=== PATIENT | female | born 1990 | race Caucasian/White ===

== ENCOUNTER 2023-05-12 06:08 | Emergency (ER) | payer OTHER, SELFPAY ==
[2023-05-12 06:33] VITALS: BP 120/81; PULSE 68; RESP 16; TEMP 36.7; O2SAT 99; BMI 28.0
--- NOTE | 2023-05-12 07:13 | ED_ITS ---
HPI - Ear Problem General Chief complaint: Ear Stated complaint: EARACHE LEG PAIN Time Seen by Provider: 05/12/23 07:13 Source: patient Mode of arrival: walk-in Limitations: no limitations History of Present Illness HPI Narrative: pt presents to the emergency department complaining of right leg, Knee and hip pain Ongoing for months. Intermittent. She states now is feeling swollen. She has not taking any medications for pain today but she intermittently takes [id number] analgesics and anti-inflammatories. Patient states she has developed left ear pain and is here to make sure she doesn't have an ear infe ction. She had upper respiratory symptoms in the last week. Denies any fever. Chills. She had a mild cough which is nonproductive. She denies any sore throat, chest pain, shortness of breath. She denies any stasis, or weakness. She denies any trauma. Related Data Previous Rx's Medication Instructions Recorded azithromycin 250 mg tablet See Rx Instructions PO .COMPLEX #6 05/12/23 (Zithromax) tabs ibuprofen 800 mg tablet 800 mg PO Q8H PRN pain #20 tabs 05/12/23 loratadine 5 mg-pseudoephedrine ER 1 tab PO DAILY PRN allergy 05/12/23 120 mg tablet,extended symptoms #14 tabs release,12hr (Claritin-D 12 Hour) Allergies Allergy/AdvReac Type Severity Reaction Status Date / Time amoxicillin Allergy Unknown Verified 05/12/23 06:38 codeine Allergy Unknown Verified 05/12/23 06:38 oxycodone [From Tylox] Allergy Unknown Verified 05/12/23 06:38 Review of Systems ROS Status of ROS 10 or more systems reviewed and unremarkable except as noted in history and below [facility] Social History Smoking status: Current every day smoker Exam Narrative Exam Narrative: Nurses notes and vital signs reviewed and patient is not hypoxic. General: Nontoxic, Well-appearing and in no apparent distress. Skin: Warm, dry, no pallor noted. No Rash Head: Normocephalic, atraumatic. Neck: Supple, non-tender. Eye: Pupils are equal, round and EOMI. No scleral icterus. Ears, Nose, Mouth, and Throat: TM clear, no posterior oropharynx erythema or nasal mucosal hypertrophy, uvula is mid-line Oral mucosa is moist, Left tympanic membrane with dull fluid and bollous myringitis noted. Cardiovascular: Regular Rate and Rhythm without murmur, gallop or rub. Respiratory: No accessory muscle use or respiratory distress. Lungs are clear to auscultation, no wheezing, rales or rhonchi Chest Wall: no tenderness Back: No midline thoracic or lumbar vertebral tenderness. No CVA tenderness Musculoskeletal: Mild tenderness to palpation to the left anterior knee. No erythema, or ecchymosis noted. There is no laxity noted. normal ROM, no calf or popliteal tenderness, no lower extremity edema/swelling GI: Abdomen is soft, non-distended. Normal bowel sounds. No masses appreciated. No tenderness to palpation. No rebound, guarding, or rigidity noted. Neurological: A&O x4. No cranial nerve dysfunction observed. No truncal ataxia. Moves all extremities. Sensation intact. Psychiatric: Cooperative and interactive. Normal mood and affect. Constitutional Vital Signs, click to edit/add: Last Vital Signs Temp 98.1 F 05/12/23 06:33 Pulse 68 05/12/23 06:33 Resp 16 05/12/23 06:33 BP 120/81 05/12/23 06:33 Pulse Ox 99 05/12/23 06:33 O2 Del Method Room Air 05/12/23 06:33 Course Vital Signs Vital signs: Vital Signs Temperature 98.1 F 05/12/23 06:33 Pulse Rate 68 05/12/23 06:33 Respiratory Rate 16 05/12/23 06:33 Blood Pressure 120/81 05/12/23 06:33 Pulse Oximetry 99 05/12/23 06:33 Oxygen Delivery Method Room Air 05/12/23 06:33 Temperature 98.1 F 05/12/23 06:33 Pulse Rate 68 05/12/23 06:33 Respiratory Rate 16 05/12/23 06:33 Blood Pressure 120/81 05/12/23 06:33 Pulse Oximetry 99 05/12/23 06:33 Oxygen Delivery Method Room Air 05/12/23 06:33 Medical Decision Making MDM Narrative Medical decision making narrative: Knee x-rays unremarkable. She was advised to take Claritin with decongestant. Given ibuprofen for the knee pain and Zithromax for bullous Myringitis. At this time the patient is without objective evidence of an acute process requiring hospitalization or inpatient management. The patient has remained hemodynamically stable. No additional indication for emergent studies at this time. I answered all questions. Discussed discharge instructions including standard anticipatory guidance and what should prompt a return to the emergency department, including if they get worse are not getting better or develops any new or concerning symptoms. I've given them specific time frame in which to follow-up, and who to follow-up with. The patient demonstrates understanding. Patient is nontoxic and stable for discharge with outpatient follow-up. This note was created with the assistance of a speech recognition program. Although the intention is to generate documents that actually reflects the content of the visit, no guarantees can be provided that every mistake has been identified and corrected by editing.. Discharge Plan Discharge Chief Complaint: Ear Clinical Impression: Right knee sprain, Otitis media Patient Disposition: Home, Self-Care Time of Disposition Decision: 07:26 Condition: Good Mode of Transportation: Private Vehicle Prescriptions / Home Meds: New azithromycin [Zithromax] 250 mg tablet See Rx Instructions .ROUTE .COMPLEX Qty: 6 0RF Rx Instructions: For 250 mg dose pack: take 500 mg today (day 1), then 250 mg for 4 days (days 2-5) Claritin-D 12 Hour 5-120 mg tablet extended release 12 hr 1 tab PO DAILY PRN (Reason: allergy symptoms) Qty: 14 0RF ibuprofen 800 mg tablet 800 mg PO Q8H PRN (Reason: pain) Qty: 20 0RF Instructions: Knee Sprain (ED), Ear Infection (ED) Stand Alone Forms: Portal Instructions Referrals: Sven Boyd MD [Primary Care Provider] - 1 week Sean Catalan MD [Physician] - 1 week Discharge Date/Time: 05/12/23 08:14
--- NOTE | 2023-05-12 07:37 | XR_ITS ---
The [address] [address] Patient Name: BAO LEE MRN: [id number] date: 1990 Sex: F Assigned Patient Location: ER Current Patient Location: ER Accession/Order Number: [id number] Exam Date: 05/12/2023 07:29 Report Date: 05/12/2023 07:53 At the request of: MAURICIO PEREZ Procedure: XR knee RT 4V PROCEDURE: XR knee RT 4V COMPARISON: None. HISTORY: pain FINDINGS: BONES:No fracture, acute abnormality, or significant arthropathy. SOFT TISSUES:Negative. No visible soft tissue swelling. EFFUSION:None visible. OTHER: Negative. XR/XR knee RT 4V IMPRESSION: No acute abnormality Electronically authenticated by: LEANN SWENSON Date: 05/12/2023 07:53
[2023-05-12] MEDS: IBUPROFEN 400 MG TABLET 800 MG PO (07:38)
[2023-05-12 08:13] VITALS: BP 121/70; PULSE 63; RESP 16; O2SAT 99
== END 2023-05-12 08:14 | disposition home or self-care (01) ==
PROVIDERS: Emergency Provider Emergency Medicine; PCP Family Medicine
DX: S83.91XA Sprain of unspecified site of right knee, initial encounter (principal); H66.92 Otitis media, unspecified, left ear; F17.210 Nicotine dependence, cigarettes, uncomplicated; X58.XXXA Exposure to other specified factors, initial encounter
CPT/HCPCS: 73564; 99283

== ENCOUNTER 2023-06-22 15:07 | Outpatient (OUT) | payer OTHER, SELFPAY ==
[2023-06-22 15:22] LABS: Basophils Absolute Auto 0.1 10^3/uL (0.0-0.1); Basophils Percent Auto 0.6 % (0.2-2.0); Eosinophils Absolute Auto 0.2 10^3/uL (0.0-0.7); Eosinophils Percent Auto 2.5 % (0.9-7.0); Hematocrit 38.8 % (36.0-48.0); Hemoglobin 12.9 g/dL (12.0-16.0); Immature Granulocytes Abs Auto 0.02 10^3/uL (0.00-0.03); Immature Granulocytes Pct Auto 0.2 % (0.0-0.5); Lymphocytes Absolute Auto 3.1 10^3/uL (1.2-3.8); Mean Corpuscular HGB Conc 33.2 g/dL (29.9-35.2); Mean Corpuscular Hemoglobin 31.8 pg (26.7-34.0); Mean Corpuscular Volume 95.6 fL (81.0-99.0); Mean Platelet Volume 10.5 fL (9.5-13.5); Monocytes Absolute Auto 0.6 10^3/uL (0.3-0.8); Monocytes Percent Auto 6.9 % (1.7-12.0); Neutrophils Absolute Auto 5.3 10^3/uL (1.4-6.5); Neutrophils Percent Auto 56.8 % (43.0-75.0); Platelet Count 202 10^3/uL (150-450); Red Blood Count 4.06 10^6/uL (4.20-5.40); Red Cell Distribution Width 12.8 % (11.0-15.0); White Blood Count 9.3 10^3/uL (4.0-11.0)
[2023-06-22 16:09] LABS: Free T4 0.74 ng/dL (0.76-1.46)
[2023-06-22 16:12] LABS: Alanine Aminotransferase 84 U/L (14-59); Albumin Level 3.5 g/dL (3.4-5.0); Alkaline Phosphatase 84 U/L (46-116); Anion Gap 10.8; Aspartate Amino Transferase 45 U/L (15-37); BUN Creatinine Ratio 14.7; Bilirubin Total 0.2 mg/dL (0.2-1.0); Calcium 8.8 mg/dL (8.5-10.1); Carbon Dioxide 26.5 mmol/L (21.0-32.0); Chloride 103 mmol/L (98-107); Estimated GFR (African America >60 (>=60); Estimated GFR (Non-African Ame >60 (>=60); Globulin 3.5 g/dL; Glucose 99 mg/dL (74-106); Potassium 4.3 mmol/L (3.5-5.1); Sodium 136 mmol/L (136-145); Thyroid Stimulating Hormone 1.137 uIU/mL (0.358-3.740)
== END 2023-06-22 15:08 | disposition home or self-care (01) ==
LOC: LAB 15:08
PROVIDERS: PCP Family Medicine; Visit Provider Family Medicine
DX: R60.9 Edema, unspecified (principal); I11.0 Hypertensive heart disease with heart failure; I50.30 Unspecified diastolic (congestive) heart failure
CPT/HCPCS: 36415; 80053; 83880; 84439; 84443; 85025

== ENCOUNTER 2023-06-27 10:40 | Outpatient (OUT) | payer OTHER, SELFPAY ==
--- NOTE | 2023-06-27 | XR_ITS ---
The [address] [address] Patient Name: BAO LEE MRN: [id number] date: 1990 Sex: F Assigned Patient Location: [facility] Current Patient Location: Accession/Order Number: [id number] Exam Date: 06/27/2023 11:20 Report Date: 06/28/2023 06:52 At the request of: PRASHANT BERMUDEZ Procedure: XR cervical spine 5V EXAMINATION: XR cervical spine 5V HISTORY: Neck pain COMPARISON: XR C-spine 10/15/2022 FINDINGS: BONES: Slight right convex curvature and mild reversal of normal lordotic curvature of cervical spine. No fracture, bone lesion, or significant listhesis. Mild uncovertebral joint spurring and degenerative facet arthropathy causing slight bone encroachment and narrowing of the C3-4, C4-5, C5-6 neural foramen. DISC SPACES: Moderate narrowing C5-6, C6-7. PARASPINOUS: Negative. No paraspinous abnormality is seen. OTHER: Negative. XR/XR cervical spine 5V IMPRESSION: 1. Grossly stable multilevel mild-moderate degenerative changes and atypical curvature. Consider MRI for further evaluation. Electronically authenticated by: SHANNA BALDERAS Date: 06/28/2023 06:52
== END 2023-06-27 10:41 | disposition home or self-care (01) ==
LOC: RAD 10:44
PROVIDERS: PCP Family Medicine; Visit Provider Family Medicine
DX: M54.2 Cervicalgia (principal)
CPT/HCPCS: 72050

== ENCOUNTER 2023-07-01 14:29 | Outpatient (RCR) | payer OTHER, SELFPAY | END 2023-07-02 15:12 | disposition home or self-care (01) | LOC: PT 14:29 | PROVIDERS: PCP Family Medicine | DX: M54.50 Low back pain, unspecified (principal) | CPT/HCPCS: 97163 ==

== ENCOUNTER 2023-07-04 10:24 | Outpatient (OUT) | payer OTHER, SELFPAY ==
--- NOTE | 2023-07-04 10:49 | VEIN_ITS ---
Patient: BAO LARA Exam Date: 07/04/2023 : 1990 Gender:F Ordering : DR LEANN SWENSON M.D. Admission #: [id number] Family : Order #: [id number] CLICK HERE TO VIEW EXAM RADIOLOGY REPORT PROCEDURE: VC EXT VENOUS REFLUX ZHANE LMTD COMPARISON: None. INDICATIONS: I83.813 Painful varicose veins of bilat lower extremities TECHNIQUE: Duplex imaging of the lower extremity to assess the deep and superficial venous system for the presence of deep or superficial venous incompetence and to document the location and severity of disease. The study includes evaluation of the great saphenous vein (GSV), anterior accessory saphenous vein (AASV) and small saphenous vein (SSV). Patient scanned in reverse Trendelenburg and standing. FINDINGS: RIGHT LOWER EXTREMITY: Saphenofemoral Junction Reflux: Yes 7.6mm 0.5 sec GSV: Diam (mm) Reflux/ Time (sec) Proximal Thigh 3.0 No Mid Thigh 1.3 No Distal Thigh 1.7 No Prox Calf 1.1 No Mid Calf 1.4 No Saphenopopliteal Junction Reflux: 1.4mm No SSV: Proximal Calf 1.1 No Mid Calf 1.4 No AASV: Not present Proximal Thigh Mid Thigh Distal Thigh Thrombi: No acute or chronic thrombus visualized Compressibility: Normal Flow: Pulsatile flow visualized throughout deep veins Preforator: Dist/med calf 1.7mm with0s reflux. Tech Note: No incompetent varicose veins visualized. LEFT LOWER EXTREMITY: Saphenofemoral Junction Reflux: Yes 4.1 mm sec GSV: Diam (mm) Reflux/Time (sec) Proximal Thigh 2.9 No Mid Thigh 2.7 No Distal Thigh 1.8 No Prox Calf 1.5 No Mid Calf 1.1 No Saphenopopliteal Junction Relux: 2.1 mm No SSV: Proximal Calf 1.2 No Mid Calf 0.9 No AASV: Not present Proximal Thigh Mid Thigh Distal Thigh Thrombi: No acute or chronic thrombus visualized Compressibility: Normal Flow: Normal Remote Pilot Operator: No perforators visualized Tech Note: No incompetent varicose veins visualized. CONCLUSION: 1. No abnormally dilated or incompetent saphenous veins or significant branch saphenous varicosities within the right or left lower extremity. 2. Clinical follow-up recommended. Dictated by: Sean Menchaca M.D. on 07/04/2023 at 11:51 Approved by: Sean Menchaca M.D. on 07/04/2023 at 11:54
== END 2023-07-04 10:25 | disposition home or self-care (01) ==
PROVIDERS: PCP Family Medicine; Visit Provider Radiology Diagnostic Radiology
DX: R60.9 Edema, unspecified (principal); I83.813 Varicose veins of bilateral lower extremities with pain
CPT/HCPCS: 93970; G0463

== ENCOUNTER 2023-07-06 06:58 | Emergency (ER) | payer OTHER, SELFPAY ==
[2023-07-06 07:02] VITALS: BP 150/85; PULSE 64; RESP 18; TEMP 36.4; O2SAT 100; BMI 28.3
--- NOTE | 2023-07-06 07:17 | CT_ITS ---
The [address] [address] Patient Name: BAO LARA MRN: [id number] date: 1990 Sex: F Assigned Patient Location: ER Current Patient Location: ER Accession/Order Number: [id number] Exam Date: 07/06/2023 07:51 Report Date: 07/06/2023 08:27 At the request of: KATE IRAHETA Procedure: CT cervical spine wo con CT scan cervical spine 07/06/2023. HISTORY: Status post fall. Neck pain. COMPARISON: Radiographs cervical spine 06/27/2023. TECHNIQUE: Multiple contiguous axial CT images of the cervical spine were obtained without contrast. Sagittal and coronal reformatted images were made. Dose reduction techniques were achieved by using automated exposure control and/or adjustment of mA and/or kV according to patient size and/or use of iterative reconstruction technique. FINDINGS: There is a mild rotatory dextroconvex scoliosis of the cervical spine again seen. There is also a similar appearance of mild reversal of the normal cervical lordosis centered at the C4-C5 level. There is moderate discogenic disease again seen at the C5-C6 level and mild discogenic disease at the C6-C7 level. No compression fracture or subluxation is seen. There is no prevertebral soft tissue swelling. The odontoid appears intact. C2-C3 level: No significant disc protrusion, spinal canal stenosis, or foraminal narrowing is seen. C3-C4 level: No significant disc protrusion, spinal canal stenosis, or foraminal narrowing is seen. C4-C5 level: There appears to be a small central disc protrusion and this appears to cause probable mild spinal canal stenosis. No significant foraminal narrowing is seen. C5-C6 level: There is a broad-based central disc-osteophyte complex which appears to cause probable severe spinal canal stenosis with probable flattening of the AP dimension of the spinal cord to approximately 5 mm. Uncovertebral arthropathy appears to cause mild bilateral foraminal narrowing. C6-C7 level: There is a posterior disc-osteophyte complex which is more prominent in the central/right paracentral region. This appears to cause probable severe spinal canal stenosis with probable flattening of the right side of the spinal cord. Uncovertebral arthropathy appears to cause mild right and minimal left foraminal narrowing. C7-T1 level: No significant disc protrusion, spinal canal stenosis, or foraminal narrowing is seen. CT/CT cervical spine wo con IMPRESSION: 1. There is discogenic disease with posterior disc-osteophyte complexes at the C5-C6 and C6-C7 levels which appear to cause severe spinal canal stenosis with probable flattening of the spinal cord. There also appears to be a small central disc protrusion at the C4-C5 level causing mild spinal canal stenosis. An MRI of the cervical spine is recommended for a more definitive evaluation of these findings. 2. No fracture or subluxation of the cervical spine is seen. 3. There is mild bilateral foraminal narrowing at the C5-C6 level and there is mild right and minimal left foraminal narrowing at the C6-C7 level secondary to uncovertebral arthropathy. 4. Mild rotatory dextroconvex scoliosis of the cervical spine. 5. Mild reversal of the normal cervical lordosis is again seen. Electronically authenticated by: PRASHANT LIZ Date: 07/06/2023 08:27
--- NOTE | 2023-07-06 07:17 | CT_ITS ---
The [address] [address] Patient Name: BAO LARA MRN: [id number] date: 1990 Sex: F Assigned Patient Location: ER Current Patient Location: ER Accession/Order Number: [id number] Exam Date: 07/06/2023 07:51 Report Date: 07/06/2023 08:35 At the request of: KATE IRAHETA Procedure: CT lumbar spine wo con EXAM: CT lumbar spine WO contrast. HISTORY: Trauma after a fall. Numbness in the arms and legs. The legs gave out and the patient fell backwards. COMPARISON: None. TECHNIQUE: 3 mm thick axial images were obtained through the lumbar spine without contrast. 2-D reformat images were created in the coronal and sagittal planes. FINDINGS: There is no acute fracture or spondylolisthesis. The lumbar vertebral body heights are maintained. No transverse process or spinous process fracture is evident. The disc spaces are relatively maintained. No bony destruction or aggressive osseous lesion is identified in the lumbar spine. No acute abnormality is identified involving visualized intra-abdominal or intrapelvic structures. The visualized aorta is normal in diameter. The upper sacrum is intact. There are no pars defects. L5-S1: There is a mild disc bulge without central or foraminal stenosis. L4-L5: There is a 3 mm broad-based disc protrusion which results in effacement of the thecal sac without central stenosis. There is suspected mild bilateral foraminal narrowing. L3-L4: There is mild disc bulge and a small left subarticular disc protrusion without central or foraminal stenosis. L2-L3: No focal disc herniation is evident. There is no central or foraminal stenosis. L1-L2: There is a mild disc bulge. There is no central or foraminal stenosis. CT/CT lumbar spine wo con IMPRESSION: 1. No acute fracture in the lumbar spine. 2. There is a broad-based disc protrusion at L4-L5 with suspected mild foraminal narrowing. There is no central stenosis in the lumbar spine. Electronically authenticated by: RICARDO CRAWFORD Date: 07/06/2023 08:35
[2023-07-06] MEDS: KETOROLAC TROMETHAMINE 30 MG/ML VIAL IM (07:32)
[2023-07-06] MEDS: METHYLPREDNISOLONE SOD SUCC PF 40 MG/ML VIAL IM (07:32)
[2023-07-06] MEDS: ORPHENADRINE CITRATE 100 MG TABLET.ER PO (07:32)
[2023-07-06] MEDS: FAMOTIDINE 20 MG TABLET 40 MG PO (07:32)
--- NOTE | 2023-07-06 07:37 | ED.BACK1 ---
HPI - Back Pain/Injury General Chief Complaint: Back Pain/Injury Stated Complaint: FALL Time Seen by Provider: 07/06/23 07:10 Source: patient Mode of arrival: walk-in Limitations: no limitations History of Present Illness HPI Narrative: The patient have already chronic back issues and she also had baseline numbness and tingling in both legs is coming to us after her leg gave out while she was walking outside and she fell backwards complaining of neck pain mostly in the right side as well as lower back pain, no new numbness or tingling or any weakness in the lower extremities the patient also had no incontinence of urine or stool and she does not have any numbness in the buttock area Related Data Previous Rx's Medication Instructions Recorded azithromycin 250 mg tablet See Rx Instructions PO .COMPLEX #6 05/12/23 (Zithromax) tabs ibuprofen 800 mg tablet 800 mg PO Q8H PRN pain #20 tabs 05/12/23 loratadine 5 mg-pseudoephedrine ER 1 tab PO DAILY PRN allergy 05/12/23 120 mg tablet,extended symptoms #14 tabs release,12hr (Claritin-D 12 Hour) Allergies Allergy/AdvReac Type Severity Reaction Status Date / Time atropine Allergy Severe Confusion Verified 07/06/23 11:30 fentanyl Allergy Severe CONFUSION Verified 07/06/23 09:00 midazolam [From Versed] Allergy Severe Confusion Verified 07/06/23 11:30 propofol Allergy Severe Confusion Verified 07/06/23 11:30 amoxicillin Allergy Unknown Verified 07/06/23 09:00 codeine Allergy Unknown Verified 07/06/23 09:00 oxycodone [From Tylox] Allergy Unknown Verified 07/06/23 09:00 Review of Systems ROS Status of ROS 10 or more systems reviewed and unremarkable except as noted in history and below [facility] Social History Smoking status: Current every day smoker Exam Narrative Exam Narrative: Nurses notes and vital signs reviewed and patient is not hypoxic. General: Well-appearing and in no apparent distress. Skin: Warm, dry, no pallor noted. No rash. Head: Normocephalic, atraumatic. Neck: Supple,no intervertebral line tenderness Eye: Pupils are equal, round and EOMI. No scleral icterus. Ears, Nose, Mouth, and Throat: TM are clear, no nasal mucosal hypertrophy. Oral mucosa is moist, no posterior oropharynx erythema, uvula is mid-line Cardiovascular: Regular Rate and Rhythm without murmur, gallop or rub. Respiratory: No accessory muscle use or respiratory distress. Lungs are clear to auscultation, no wheezing, rales or rhonchi Chest Wall: no tenderness Back: No midline thoracic or lumbar vertebral tenderness but the pt complain of tenderness of the intervertebral line , paraspinal muscle tenderness ,no ecchymosis No CVA tenderness Musculoskeletal: normal ROM, no calf or popliteal tenderness, no lower extremity edema/swelling GI: Abdomen is soft, non-distended. Normal bowel sounds. No masses appreciated. No tenderness to palpation. No rebound, guarding, or rigidity noted. Neurological: A&O x4. Have some mild weakness lifting the right leg against gravity but she mentioned that this has been going on for a while she also mentioned that she have this numbness and tingling going down her both legs the patient also have decreased sensation in the medial aspect of both arms mostly at the forearm level Psychiatric: Cooperative and interactive. Normal mood and affect. Constitutional Vital Signs, click to edit/add: Last Vital Signs Temp 97.6 F 07/06/23 07:02 Pulse 64 07/06/23 07:02 Resp 18 07/06/23 07:02 BP 150/85 H 07/06/23 07:02 Pulse Ox 100 07/06/23 07:02 O2 Del Method Room Air 07/06/23 07:02 Course Vital Signs Vital signs: Vital Signs Temperature 97.6 F 07/06/23 07:02 Pulse Rate 64 07/06/23 07:02 Respiratory Rate 18 07/06/23 07:02 Blood Pressure 150/85 H 07/06/23 07:02 Pulse Oximetry 100 07/06/23 07:02 Oxygen Delivery Method Room Air 07/06/23 07:02 Temperature 97.6 F 07/06/23 07:02 Pulse Rate 64 07/06/23 07:02 Respiratory Rate 18 07/06/23 07:02 Blood Pressure 150/85 H 07/06/23 07:02 Pulse Oximetry 100 07/06/23 07:02 Oxygen Delivery Method Room Air 07/06/23 07:02 MDM - Back Pain/Injury MDM Narrative Medical decision making narrative: The patient CBC and chemistry showed no acute pathology CAT scan initially of the lumbar spine showed no acute pathology but the CAT scan of the cervical spine shows a severe stenosis at C5-C6 and C6-C7 with possibility of flattening of the spinal cord The patient had a neck collar in place she had an MRI done as well that confirmed the results above with edema of the area this is right now could be chronic with on top mild acute exacerbation I did call [facility] awaiting to speak with the neurosurgery spoke with [facility]recommended trasfer to [facility] or [facility] I spoke with Dr. Nava and neurosurgery service in [facility] and he agreed that the patient needed transferred she will be transferred by the ambulance to the ER and in the ED accepted the patient The patient is stable no acute significant neurological symptoms the patient's symptoms has been progressively getting worse over the last few months since March and right now since that is the clinical presentation the patient is stable enough to go by the EMS The patient requested a nicotine patch and she was provided with 1 she smoked more than 1 pack of cigarettes a day Lab Data Labs: Lab Results 07/06/23 07/06/23 Range/Units 07:36 08:48 WBC 12.3 H (4.0-11.0) 10^3/uL RBC 4.27 (4.20-5.40) 10^6/uL Hgb 13.3 (12.0-16.0) g/dL Hct 40.5 (36.0-48.0) % MCV 94.8 (81.0-99.0) fL MCH 31.1 (26.7-34.0) pg MCHC 32.8 (29.9-35.2) g/dL RDW 12.9 (11.0-15.0) % Plt Count 274 (150-450) 10^3/uL MPV 11.2 (9.5-13.5) fL Neut % (Auto) 68.0 (43.0-75.0) % Lymph % (Auto) 22.8 (20.5-60.0) % [place] % (Auto) 6.7 (1.7-12.0) % Eos % (Auto) 1.5 (0.9-7.0) % Baso % (Auto) 0.6 (0.2-2.0) % Neut # (Auto) 8.4 H (1.4-6.5) 10^3/uL Lymph # (Auto) 2.8 (1.2-3.8) 10^3/uL [place] # (Auto) 0.8 (0.3-0.8) 10^3/uL Eos # (Auto) 0.2 (0.0-0.7) 10^3/uL Baso # (Auto) 0.1 (0.0-0.1) 10^3/uL Abs Immat Gran (auto) 0.05 H (0.00-0.03) 10^3/uL Imm/Tot Granulo (auto) 0.4 (0.0-0.5) % Sodium 139 (136-145) mmol/L Potassium 3.7 (3.5-5.1) mmol/L Chloride 106 (98-107) mmol/L Carbon Dioxide 26.0 (21.0-32.0) mmol/L Anion Gap 10.7 BUN 8.0 (7.0-18.0) mg/dL Creatinine 0.68 (0.55-1.02) mg/dL Est GFR ( Amer) >60 (>=60) Est GFR (Non-Af Amer) >60 (>=60) BUN/Creatinine Ratio 11.8 Glucose 80 (74-106) mg/dL Calcium 8.7 (8.5-10.1) mg/dL Total Bilirubin 0.4 (0.2-1.0) mg/dL AST 34 (15-37) U/L ALT 75 H (14-59) U/L Alkaline Phosphatase 78 (46-116) U/L Total Protein 7.1 (6.4-8.2) g/dL Albumin 3.8 (3.4-5.0) g/dL Globulin 3.3 g/dL Albumin/Globulin Ratio 1.2 Urine HCG, Qual Negative (NEGATIVE) Urine Opiates Screen Negative (NEGATIVE) Ur Buprenorphine Scrn Negative (NEGATIVE) Ur Oxycodone Screen Negative (NEGATIVE) Urine Methadone Screen Negative (NEGATIVE) Ur Barbiturates Screen Negative (NEGATIVE) U Tricyclic Antidepress Negative (NEGATIVE) Ur Phencyclidine Scrn Negative (NEGATIVE) Ur Amphetamines Screen Negative (NEGATIVE) U Methamphetamines Scrn Negative (NEGATIVE) U Benzodiazepines Scrn Negative (NEGATIVE) Urine Cocaine Screen Negative (NEGATIVE) U Cannabinoids Screen Negative (NEGATIVE) Discharge Plan Discharge Chief Complaint: Back Pain/Injury Clinical Impression: Cervical spinal cord compression Patient Disposition: [facility] Time of Disposition Decision: 11:21 Discharge Location: [facility] Discharge location: emergency department Condition: Good Mode of Transportation: EMS
[2023-07-06 07:59] LABS: Amphetamine Screen Urine NEGATIVE (NEGATIVE); Barbiturates Screen Urine NEGATIVE (NEGATIVE); Benzodiazepines Screen Urine NEGATIVE (NEGATIVE); Buprenorphine Screen Urine NEGATIVE (NEGATIVE); Cannabinoid Screen Urine NEGATIVE (NEGATIVE); Cocaine Screen Urine NEGATIVE (NEGATIVE); Methadone Screen Urine NEGATIVE (NEGATIVE); Methamphetamines Screen Urine NEGATIVE (NEGATIVE); Opiate Screen Urine NEGATIVE (NEGATIVE); Oxycodone Screen Urine NEGATIVE (NEGATIVE); Phencyclidine Screen Urine NEGATIVE (NEGATIVE); Tricyclic Antidepressant Urine NEGATIVE (NEGATIVE)
--- NOTE | 2023-07-06 08:44 | MR_ITS ---
The [address] [address] Patient Name: BAO LARA MRN: [id number] date: 1990 Sex: F Assigned Patient Location: ER Current Patient Location: ER Accession/Order Number: [id number] Exam Date: 07/06/2023 09:05 Report Date: 07/06/2023 10:06 At the request of: KATE IRAHETA Procedure: MR cervical spine wo con HISTORY: Status post fall. Neck pain. Numbness in the arms and legs. The patient was found to have spinal canal stenosis with probable flattening of the spinal cord at the C5-C6 and C6-C7 level on a CT scan of the cervical spine obtained earlier today. Please evaluate. MR cervical spine wo con: 07/06/2023 9:05 AM EDT COMPARISON: CT scan cervical spine 07/06/2023. TECHNIQUE: Sagittal T1, T2, STIR, axial T2, and T2 gradient echo images of the cervical spine were obtained. FINDINGS: Multiple images are degraded by breathing motion artifact. There is a mild rotatory dextroconvex scoliosis of the cervical spine again seen. There is also mild reversal of the normal cervical lordosis again seen centered at the C4-C5 level. There is mild discogenic disease again seen at the C6-C7 level and moderate discogenic disease at the C5-C6 level. There is no compression fracture or subluxation. No prevertebral soft tissue swelling is seen. The bone marrow signal intensity appears age appropriate. The craniovertebral junction appears grossly within normal limits. There appears to be mild diffuse narrowing of the AP dimension of the cervical spinal canal at the C4-C5 through C6-C7 level secondary to short pedicles. C2-C3 level: No significant disc protrusion, spinal canal stenosis, or foraminal narrowing is seen. C3-C4 level: No significant disc protrusion, spinal canal stenosis, or foraminal narrowing is seen. C4-C5 level: No significant disc protrusion is seen, but there is mild congenital/developmental spinal canal stenosis secondary to short pedicles. Uncovertebral arthropathy on the left causes mild left foraminal narrowing. There is no right foraminal narrowing. C5-C6 level: There is a broad-based central disc-osteophyte complex again seen. This causes severe spinal canal stenosis with compression of the AP dimension of the spinal cord to approximately 4.5 mm in AP dimension. Uncovertebral arthropathy appears to cause moderate right and mild left foraminal narrowing. C6-C7 level: There is a broad-based posterior disc-osteophyte complex. Superimposed on this disc-osteophyte complex is a large broad-based central/bilateral paracentral disc extrusion dissecting cranially to the superior aspect of C6. These findings cause severe spinal canal stenosis with severe compression of the AP dimension of the spinal cord to 2.5 mm. Uncovertebral arthropathy appears to cause severe right and mild left foraminal narrowing. C7-T1 level: No significant disc protrusion, spinal canal stenosis, or foraminal narrowing is seen. There are linear foci of increased T2 signal intensity involving the right and left sides of the spinal cord from the C5-C6 level through the C6-C7 level. This appears more prominent on the left than the right. The signal intensity of the remainder of the cervical spinal cord appears grossly within normal limits. MR/MR cervical spine wo con IMPRESSION: 1. There is severe spinal canal stenosis with compression of the spinal cord at the C5-C6 through the C6-C7 levels secondary to a combination of factors described above. There is also mild congenital/developmental spinal canal stenosis at the C4-C5 level secondary to short pedicles. There is abnormal linear increased T2 signal intensity within the right and left side of the spinal cord at the C5-C6 through the C6-C7 level, worse on the left than the right. This may be secondary to spinal cord edema or myelomalacia. 2. There is foraminal narrowing at the C4-C5 through C6-C7 level secondary to uncovertebral arthropathy. 3. Discogenic disease at the C5-C6 and C6-C7 levels. 4. Mild rotatory dextroconvex scoliosis of the cervical spine. I discussed the critical findings of this case with the referring clinician, Kate Iraheta, at 10:03 AM on 07/06/2023 when the study was presented for interpretation. Electronically authenticated by: PRASHANT LIZ Date: 07/06/2023 10:06
[2023-07-06 08:48] LABS: HCG Qualitative Urine* NEGATIVE (NEGATIVE)
[2023-07-06] MEDS: DEXAMETHASONE SOD PHOS 10 MG/ML VIAL 6 MG IV (08:54)
[2023-07-06 09:48] LABS: Basophils Absolute Auto 0.1 10^3/uL (0.0-0.1); Basophils Percent Auto 0.6 % (0.2-2.0); Eosinophils Absolute Auto 0.2 10^3/uL (0.0-0.7); Eosinophils Percent Auto 1.5 % (0.9-7.0); Hematocrit 40.5 % (36.0-48.0); Hemoglobin 13.3 g/dL (12.0-16.0); Immature Granulocytes Abs Auto 0.05 10^3/uL (0.00-0.03); Immature Granulocytes Pct Auto 0.4 % (0.0-0.5); Lymphocytes Absolute Auto 2.8 10^3/uL (1.2-3.8); Lymphocytes Percent Auto 22.8 % (20.5-60.0); Mean Corpuscular HGB Conc 32.8 g/dL (29.9-35.2); Mean Corpuscular Hemoglobin 31.1 pg (26.7-34.0); Mean Corpuscular Volume 94.8 fL (81.0-99.0); Mean Platelet Volume 11.2 fL (9.5-13.5); Monocytes Absolute Auto 0.8 10^3/uL (0.3-0.8); Monocytes Percent Auto 6.7 % (1.7-12.0); Neutrophils Absolute Auto 8.4 10^3/uL (1.4-6.5); Platelet Count 274 10^3/uL (150-450); Red Blood Count 4.27 10^6/uL (4.20-5.40); Red Cell Distribution Width 12.9 % (11.0-15.0); White Blood Count 12.3 10^3/uL (4.0-11.0)
[2023-07-06 10:08] LABS: Alanine Aminotransferase 75 U/L (14-59); Albumin Globulin Ratio 1.2; Albumin Level 3.8 g/dL (3.4-5.0); Alkaline Phosphatase 78 U/L (46-116); Anion Gap 10.7; Aspartate Amino Transferase 34 U/L (15-37); BUN Creatinine Ratio 11.8; Bilirubin Total 0.4 mg/dL (0.2-1.0); Calcium 8.7 mg/dL (8.5-10.1); Chloride 106 mmol/L (98-107); Estimated GFR (African America >60 (>=60); Estimated GFR (Non-African Ame >60 (>=60); Globulin 3.3 g/dL; Glucose 80 mg/dL (74-106); Potassium 3.7 mmol/L (3.5-5.1); Sodium 139 mmol/L (136-145); Total Protein 7.1 g/dL (6.4-8.2)
[2023-07-06] MEDS: NICOTINE 21 MG PATCH TD (11:56)
[2023-07-06 12:31] VITALS: BP 99/85; PULSE 60; RESP 14; O2SAT 98
== END 2023-07-06 12:47 | disposition short-term general hospital (02) ==
PROVIDERS: Emergency Provider Emergency Medicine; PCP Family Medicine
DX: G95.20 Unspecified cord compression (principal); F17.210 Nicotine dependence, cigarettes, uncomplicated; W19.XXXA Unspecified fall, initial encounter
CPT/HCPCS: 36415; 72125; 72131; 72141; 80053; 80307; 84703; 85025; 96372; 96374; 99285; J1100; J2920

== ENCOUNTER 2023-08-09 09:04 | Emergency (ER) | payer OTHER, SELFPAY ==
[2023-08-09 09:09] VITALS: BP 139/77; PULSE 83; RESP 19; TEMP 36.8; O2SAT 100; BMI 28.3
--- NOTE | 2023-08-09 09:25 | ED.BACK1 ---
HPI - Back Pain/Injury General Chief Complaint: Back Pain/Injury Stated Complaint: BACK PAIN Time Seen by Provider: 08/09/23 09:19 Source: patient Mode of arrival: walk-in Limitations: no limitations History of Present Illness HPI Narrative: 33-year-old female presents for pain. She's having pain in her right thoracic back area for many months. A month ago she had cervical surgery in [place]. She was having the pain much before that. No trauma fever or cough or injury. Related Data Previous Rx's Medication Instructions Recorded methocarbamol 750 mg tablet 750 mg PO Q8H PRN pain #20 tabs 08/09/23 Allergies Allergy/AdvReac Type Severity Reaction Status Date / Time atropine Allergy Severe Confusion Verified 08/09/23 09:09 fentanyl Allergy Severe CONFUSION Verified 08/09/23 09:09 midazolam [From Versed] Allergy Severe Confusion Verified 08/09/23 09:09 propofol Allergy Severe Confusion Verified 08/09/23 09:09 amoxicillin Allergy Unknown Verified 08/09/23 09:09 codeine Allergy Unknown Verified 08/09/23 09:09 Review of Systems ROS Narrative A ten point review of systems is negative except as noted above. [facility] Social History Smoking status: Current every day smoker Exam Narrative Exam Narrative: Nurses note and vital signs reviewed and patient is not hypoxic. General: The patient appears no distress. She is sitting on the edge of the cart with her walker nearby. Skin: Warm, dry, no pallor noted. There is no rash noted. Head: Normocephalic, atraumatic Eye: Normal conjunctiva, no drainage Ears, Nose, Mouth, and Throat: oral mucosa is moist. Nares patent. healing surgical wound present on the right anterior neck. Cardiovascular: Regular Rate and Rhythm Respiratory: Patient is in no distress, no accessory muscle use, lungs are clear to auscultation, no wheezing, rales or rhonchi Back: she has palpable tenderness in the right thoracic area which reproduces her symptom completely. There is no bruise or rash or erythema. GI: soft and nontender Musculoskeletal: The patient has no evidence of calf tenderness, no pitting edema, symmetrical pulses noted bilaterally Neurological: A&O, normal speech Psychiatric: Cooperative Constitutional Vital Signs, click to edit/add: Last Vital Signs Temp 98.3 F 08/09/23 09:09 Pulse 83 08/09/23 09:09 Resp 19 08/09/23 09:09 BP 139/77 08/09/23 09:09 Pulse Ox 100 08/09/23 09:09 O2 Del Method Room Air 08/09/23 09:09 Course Vital Signs Vital signs: Vital Signs Temperature 98.3 F 08/09/23 09:09 Pulse Rate 83 08/09/23 09:09 Respiratory Rate 19 08/09/23 09:09 Blood Pressure 139/77 08/09/23 09:09 Pulse Oximetry 100 08/09/23 09:09 Oxygen Delivery Method Room Air 08/09/23 09:09 Temperature 98.3 F 08/09/23 09:09 Pulse Rate 83 08/09/23 09:09 Respiratory Rate 19 08/09/23 09:09 Blood Pressure 139/77 08/09/23 09:09 Pulse Oximetry 100 08/09/23 09:09 Oxygen Delivery Method Room Air 08/09/23 09:09 MDM - Back Pain/Injury MDM Narrative Medical decision making narrative: the patient has had this pain for months. I've no clinical suspicion of pulmonary embolism. Radiographs are not indicated. She was given IM Toradol and Norflex here and we will switch her from Flexeril to Robaxin. Treatment diagnosis and follow-up were discussed with the patient. Differential Diagnosis Differential diagnosis: Likely other (muscle strain, chronic back pain) Discharge Plan Discharge Chief Complaint: Back Pain/Injury Clinical Impression: Chronic back pain Patient Disposition: Home, Self-Care Time of Disposition Decision: 10:03 Condition: Good Mode of Transportation: Private Vehicle Prescriptions / Home Meds: New methocarbamol 750 mg tablet 750 mg PO Q8H PRN (Reason: pain) Qty: 20 0RF Instructions: Chronic Back Pain (DC) Additional Instructions: Discontinue cyclobenzaprine while on Robaxin Stand Alone Forms: Portal Instructions Referrals: Sven Boyd MD [Primary Care Provider] - 1 week
[2023-08-09] MEDS: KETOROLAC TROMETHAMINE 60 MG/2 ML VIAL IM (09:45)
[2023-08-09] MEDS: ORPHENADRINE 60 MG/ 2 ML VIAL IM (09:45)
== END 2023-08-09 10:09 | disposition home or self-care (01) ==
PROVIDERS: Emergency Provider Emergency Medicine; PCP Family Medicine
DX: M54.6 Pain in thoracic spine (principal); G89.29 Other chronic pain; F17.200 Nicotine dependence, unspecified, uncomplicated
CPT/HCPCS: 96372; 99284

== ENCOUNTER 2023-09-07 12:44 | Outpatient (OUT) | payer OTHER, SELFPAY ==
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
--- NOTE | 2023-09-07 13:02 | US_ITS ---
[place] [id number] Patient Name: BAO LARA MRN: [id number] date: 1990 Sex: F Assigned Patient Location: LAB Current Patient Location: LAB Accession/Order Number: [id number] Exam Date: 09/07/2023 13:10 Report Date: 09/07/2023 15:01 At the request of: PRASHANT BERMUDEZ Procedure: US venous doppler LE RT EXAMINATION: US venous doppler LE RT HISTORY: Edema R60.9, Bruising T14.8 COMPARISON: No relevant comparison available. TECHNIQUE: Grayscale, color and Doppler FINDINGS: Region: Right leg Thrombus: None Flow: Normal Augmentation: Normal Compressibility: Normal US/US venous doppler LE RT IMPRESSION: No deep or superficial vein thrombus identified in the right leg *Exam performed in accordance with [facility] practice guidelines- Peripheral venous ultrasound, November 29, 2009. Electronically authenticated by: LEANN SWENSON Date: 09/07/2023 15:01
[2023-09-07 14:01] LABS: INR 1.04; Partial Thromboplastin Time 30.5 sec (22.3-36.2)
[2023-09-07 14:04] LABS: Basophils Absolute Auto 0.1 10^3/uL (0.0-0.1); Basophils Percent Auto 0.8 % (0.2-2.0); Eosinophils Absolute Auto 0.2 10^3/uL (0.0-0.7); Eosinophils Percent Auto 1.9 % (0.9-7.0); Hematocrit 43.2 % (36.0-48.0); Hemoglobin 14.1 g/dL (12.0-16.0); Immature Granulocytes Abs Auto 0.06 10^3/uL (0.00-0.03); Immature Granulocytes Pct Auto 0.5 % (0.0-0.5); Lymphocytes Absolute Auto 2.7 10^3/uL (1.2-3.8); Lymphocytes Percent Auto 23.5 % (20.5-60.0); Mean Corpuscular HGB Conc 32.6 g/dL (29.9-35.2); Mean Corpuscular Hemoglobin 31.8 pg (26.7-34.0); Mean Corpuscular Volume 97.5 fL (81.0-99.0); Monocytes Absolute Auto 0.9 10^3/uL (0.3-0.8); Monocytes Percent Auto 7.6 % (1.7-12.0); Neutrophils Absolute Auto 7.6 10^3/uL (1.4-6.5); Neutrophils Percent Auto 65.7 % (43.0-75.0); Platelet Count 261 10^3/uL (150-450); Red Blood Count 4.43 10^6/uL (4.20-5.40); Red Cell Distribution Width 13.1 % (11.0-15.0); White Blood Count 11.5 10^3/uL (4.0-11.0)
[2023-09-07 14:27] LABS: Alanine Aminotransferase 59 U/L (14-59); Albumin Globulin Ratio 1.1; Albumin Level 3.8 g/dL (3.4-5.0); Alkaline Phosphatase 85 U/L (46-116); Anion Gap 12.7; Aspartate Amino Transferase 20 U/L (15-37); BUN Creatinine Ratio 6.3; Bilirubin Total 0.4 mg/dL (0.2-1.0); Calcium 9.1 mg/dL (8.5-10.1); Carbon Dioxide 27.6 mmol/L (21.0-32.0); Chloride 101 mmol/L (98-107); Estimated GFR (African America >60 (>=60); Estimated GFR (Non-African Ame >60 (>=60); Globulin 3.5 g/dL; Glucose 102 mg/dL (74-106); Potassium 3.3 mmol/L (3.5-5.1); Sodium 138 mmol/L (136-145); Total Protein 7.3 g/dL (6.4-8.2)
== END 2023-09-07 12:45 | disposition home or self-care (01) ==
LOC: LAB 12:45
PROVIDERS: PCP Family Medicine; Visit Provider Family Medicine
DX: R60.9 Edema, unspecified (principal); T14.8XXA Other injury of unspecified body region, initial encounter
CPT/HCPCS: 36415; 80053; 85025; 85610; 85730; 93971

== ENCOUNTER 2023-09-09 08:30 | Outpatient (OUT) | payer OTHER, SELFPAY ==
--- NOTE | 2023-09-09 08:33 | MR_ITS ---
The [address] [address] Patient Name: BAO LARA MRN: [id number] date: 1990 Sex: F Assigned Patient Location: MRI Current Patient Location: MRI Accession/Order Number: [id number] Exam Date: 09/09/2023 08:40 Report Date: 09/09/2023 10:18 At the request of: PRASHANT BERMUDEZ Procedure: MR knee RT wo con EXAM: MR knee RT wo con REASON FOR EXAM: knee internal derangement M23.90. TECHNIQUE: Multiplanar, multisequence imaging of the right knee was performed without contrast COMPARISON: Plain radiographs 05/12/2023. FINDINGS: Laterally, the iliotibial band, fibular collateral ligament, popliteus tendon and biceps tendon are intact. The ACL is intact. The lateral meniscus demonstrates normal morphology and signal without tear. The lateral articular cartilage demonstrates low-grade chondrosis. Medially, the medial collateral ligament is intact. The PCL is intact. The medial meniscus demonstrates horizontal undersurface oblique tear involving the peripheral third of the posterior horn (series 6, images 7-9). This appears to extend into the root horn attachment. No significant meniscal extrusion identified. Low-grade chondrosis of the medial compartment. The extensor mechanism is intact. The patellofemoral cartilage demonstrates mild chondromalacia. Mild edema is noted in the superior lateral aspect of Hoffa's fat pad. This potentially reflects mild fat pad impingement. Normal tibial tuberosity trochlear groove interval. No significant trochlea dysplasia identified. The bone marrow signal is without fracture. Trace effusion. The regional muscle tear is without muscle strain or tendon tear. MR/MR knee RT wo con IMPRESSION: 1. Medial meniscal tear. 2. 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 3. Mild chondromalacia the patellofemoral cartilage. 4. Possible mild fat pad impingement involving the superior lateral aspect of Hoffa's fat pad. Normal tibial tuberosity trochlear groove interval. No evidence of trochlear dysplasia. Electronically authenticated by: CATINA VILLAREAL Date: 09/09/2023 10:18
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
== END 2023-09-09 08:31 | disposition home or self-care (01) ==
LOC: MRI 08:30
PROVIDERS: PCP Family Medicine; Visit Provider Family Medicine
DX: M23.90 Unspecified internal derangement of unspecified knee (principal); S83.241A Other tear of medial meniscus, current injury, right knee, initial encounter
CPT/HCPCS: 73721

== ENCOUNTER 2023-10-02 18:57 | Emergency (ER) | payer OTHER, SELFPAY ==
[2023-10-02 19:01] VITALS: BP 126/80; PULSE 120; RESP 16; TEMP 37.2; O2SAT 98
--- NOTE | 2023-10-02 19:09 | CT_ITS ---
The [address] [address] Patient Name: BAO LARA MRN: [id number] date: 1990 Sex: F Assigned Patient Location: ER Current Patient Location: ER Accession/Order Number: [id number] Exam Date: 10/02/2023 19:20 Report Date: 10/02/2023 19:54 At the request of: KIANNA KNUTSON Procedure: CT cervical spine wo con EXAM: CT cervical spine wo con CLINICAL INDICATION: post-operative neck pain COMPARISON: CT cervical spine 07/06/2023 TECHNIQUE: CT scanning of the cervical spine was performed in the axial plane. Coronal and sagittal reconstructed images were performed and viewed. FINDINGS: No acute fracture. Interval anterior lesion and corpectomy change from C5 through C7. The spine is in anatomic alignment. Mild multilevel degenerative disc disease. Mild spinal canal stenosis at C4-C5. Significant interval improvement in degree of spinal canal narrowing from C5 through C7. The prevertebral soft tissues are unremarkable. Enlarged bilateral cervical chain lymph nodes, increased from prior. CT/CT cervical spine wo con IMPRESSION: Postoperative and multilevel degenerative changes of the cervical spine without evidence for complication or acute fracture. Significant interval improvement in degree of spinal canal narrowing from C5 through C7. Enlarged bilateral cervical chain lymph nodes, increased from prior and nonspecific, likely reactive/postoperative in etiology. Electronically authenticated by: RADHA MARIEE Date: 10/02/2023 19:54
--- NOTE | 2023-10-02 19:11 | ED_ITS ---
HPI - Neck Pain/Injury General Chief Complaint: Neck Pain/Injury Stated Complaint: NECK PAIN Time Seen by Provider: 10/02/23 19:01 Source: patient Mode of arrival: walk-in History of Present Illness HPI Narrative: Patient had neck surgery with anterior approach in July at [facility]. Since then she has been experiencing posterior neck and upper right trapezius pain. She said that she saw the surgical PA in the office about a month later but no new meds were prescribed. About 2 weeks later, she said, she developed pain in the anterior neck. A couple of weeks ago she developed pain deep in the throat and said that she developed swelling to the anterior neck. She did not see her PCP, Dr Boyd, or the surgeon for this. She said that she has been taking Tylenol and muscle relaxer at home and tonight took a Xanax. No ear pain or cough. no chest pain, shortness of breath. No upper or lower extremity weakness or paralysis. No UE or LE sensory changes. Related Data Home Medications Medication Instructions Recorded Confirmed diazepam 5 mg tablet 5 mg PO Q8H PRN muscle spasm 10/02/23 10/02/23 Previous Rx's Medication Instructions Recorded cephalexin 500 mg capsule 500 mg PO BID 10 days #20 caps 10/02/23 nabumetone 750 mg tablet 750 mg PO BID pain #20 tabs 10/02/23 Allergies Allergy/AdvReac Type Severity Reaction Status Date / Time atropine Allergy Severe Confusion Verified 08/09/23 09:09 fentanyl Allergy Severe CONFUSION Verified 08/09/23 09:09 midazolam [From Versed] Allergy Severe Confusion Verified 08/09/23 09:09 propofol Allergy Severe Confusion Verified 08/09/23 09:09 amoxicillin Allergy Unknown Verified 08/09/23 09:09 codeine Allergy Unknown Verified 08/09/23 09:09 [facility] Social History Smoking status: Current every day smoker Exam Narrative Exam Narrative: Nurses notes and vital signs reviewed and patient is not hypoxic. afebrile General: Uncomfortable. Skin: Warm, dry, no pallor noted. No rash. Head: Normocephalic, atraumatic. Neck: Supple, no cervical lymphadenopathy. Diffusely tender anteriorly and posteriorly and she will not let me fully palpate or examine her due to the pain. The anterior approach neck incision is without erythema, warmth, dehiscence, purulence or other drainage. Eye: Pupils are equal, round and EOMI. No scleral icterus. Ears, Nose, Mouth, and Throat: Posterior oropharynx erythema with swelling and exudate. No nasal mucosal hypertrophy, uvula is mid-line. Oral mucosa is moist Cardiovascular: Tachycardia. Respiratory: No accessory muscle use or respiratory distress. Lungs are clear to auscultation, no wheezing, rales or rhonchi Back: No midline thoracic or lumbar vertebral tenderness. Right superior trapezius tenderness Musculoskeletal: normal UE ROM Neurological: A&O x4. No cranial nerve dysfunction observed. No truncal ataxia. Moves all extremities. Sensation intact. Psychiatric: Cooperative and interactive. Normal mood and affect. Constitutional Vital Signs, click to edit/add: Last Vital Signs Temp 99.0 F 10/02/23 19:01 Pulse 120 H 10/02/23 19:01 Resp 16 10/02/23 19:01 BP 126/80 10/02/23 19:01 Pulse Ox 98 10/02/23 19:01 O2 Del Method Room Air 10/02/23 19:01 Course Vital Signs Vital signs: Vital Signs Temperature 99.0 F 10/02/23 19:01 Pulse Rate 120 H 10/02/23 19:01 Respiratory Rate 16 10/02/23 19:01 Blood Pressure 126/80 10/02/23 19:01 Pulse Oximetry 98 10/02/23 19:01 Oxygen Delivery Method Room Air 10/02/23 19:01 Temperature 99.0 F 10/02/23 19:01 Pulse Rate 120 H 10/02/23 19:01 Respiratory Rate 16 10/02/23 19:01 Blood Pressure 126/80 10/02/23 19:01 Pulse Oximetry 98 10/02/23 19:01 Oxygen Delivery Method Room Air 10/02/23 19:01 MDM - Neck Pain/Injury MDM Narrative Medical decision making narrative: The patient was sent for CT scanning of the cervical spine to evaluate her postoperative pain. She was given IM Solu-Medrol and IM Dilaudid, as well as oral Toradol, for her pain. Patient tested positive for Strep - negative for Covid and Influenza. CT scan revealed bilateral cervical lymphadenopathy, may be associated with strep infection. Patient informed of results and started on antibiotics - first dose of Keflex given in ED - she is allergic to amoxicillin. Also prescribed BMX solution and short course of Relafen for pain. She can follow up with Dr Boyd as needed or return to the ED if worse. Lab Data Attestation: I reviewed the patient's lab results. Labs: Lab Results 10/02/23 Range/Units 19:11 Influenza Type A Ag Negative Influenza Type B Ag Negative SARS-CoV-2 Ag (CV2AG) Negative (NEGATIVE) Streptococcus Screen Positive A Imaging Data CT cervical spine: Radiologist's impression: ITS Impressions Cervical Spine CT 10/02/23 19:09 IMPRESSION: Postoperative and multilevel degenerative changes of the cervical spine without evidence for complication or acute fracture. Significant interval improvement in degree of spinal canal narrowing from C5 through C7. Enlarged bilateral cervical chain lymph nodes, increased from prior and nonspecific, likely reactive/postoperative in etiology. Electronically authenticated by: RADHA MARIEE Date: 10/02/2023 19:54 Discharge Plan Discharge Chief Complaint: Neck Pain/Injury Clinical Impression: Cervical lymphadenopathy, Acute streptococcal pharyngitis, Neck pain Patient Disposition: Home, Self-Care Time of Disposition Decision: 20:09 Prescriptions / Home Meds: New cephalexin 500 mg capsule 500 mg PO BID 10 Days Qty: 20 0RF nabumetone 750 mg tablet 750 mg PO BID Qty: 20 0RF No Action diazepam 5 mg tablet 5 mg PO Q8H PRN (Reason: muscle spasm) Instructions: Strep Throat (ED), Lymphadenopathy (ED), Neck Pain (ED) Stand Alone Forms: Portal Instructions Referrals: Sven Boyd MD [Primary Care Provider] - 1 week
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
[2023-10-02 19:32] LABS: Internal Control Within Normal Limits; Strep A Antigen Screen Positive
[2023-10-02 19:36] LABS: Influenza Virus A Antigen Negative; Influenza Virus B Antigen Negative; Internal Control Within Normal Limits; SARS-CoV-2 Ag NEGATIVE (NEGATIVE)
[2023-10-02] MEDS: KETOROLAC TROMETHAMINE 10 MG TABLET PO (19:40)
[2023-10-02] MEDS: HYDROMORPHONE HCL 2 MG/ML VIAL 1 MG IM (19:40)
[2023-10-02] MEDS: METHYLPREDNISOLONE SOD SUCC PF 125 MG/2 ML VIAL IM (19:40)
[2023-10-02] MEDS: CEPHALEXIN 500 MG CAPSULE PO (20:18)
== END 2023-10-02 20:22 | disposition home or self-care (01) ==
PROVIDERS: Emergency Provider Emergency Medicine; PCP Family Medicine
DX: J02.0 Streptococcal pharyngitis (principal); R59.0 Localized enlarged lymph nodes; M54.2 Cervicalgia; F17.210 Nicotine dependence, cigarettes, uncomplicated; Z20.822 Contact with and (suspected) exposure to COVID-19; Z79.899 Other long term (current) drug therapy
CPT/HCPCS: 72125; 87804; 87811; 87880; 96372; 99285; J1170; J2930

== ENCOUNTER 2023-10-10 15:08 | Outpatient (OUT) | payer OTHER, SELFPAY ==
--- NOTE | 2023-10-10 15:15 | US_ITS ---
[facility] [place] [id number] Patient Name: BAO LARA MRN: [id number] date: 1990 Sex: F Assigned Patient Location: [facility] Current Patient Location: [facility] Accession/Order Number: [id number] Exam Date: 10/10/2023 15:15 Report Date: 10/10/2023 16:01 At the request of: MARK FATIMA Procedure: US pelvis transvaginal EXAMINATION: US pelvis transvaginal HISTORY: PELVIC PAIN COMPARISON: No relevant comparison available. FINDINGS: The uterus is normal in size, contour and echotexture measuring 9.0 x 3.9 x 5.7 cm, anteverted, retroflexed. No focal myometrial mass. The endometrium measures 5 mm, normal. The right ovary is normal measuring 2.8 x 1.9 x 3.0 cm. 1.3 cm area of anechoic echogenicity, simple cyst Normal color and Doppler flow. Left ovary measures 3.6 x 2.5 x 3.1 cm. Normal color and Doppler flow. Area of anechoic echogenicity measuring 3.0 x 2.6 x 2.3 cm US/US pelvis transvaginal IMPRESSION: 3 cm left ovarian simple cyst Electronically authenticated by: LEANN SWENSON Date: 10/10/2023 16:01
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
== END 2023-10-10 15:09 | disposition home or self-care (01) ==
LOC: NOMS 15:10
PROVIDERS: PCP Family Medicine; Visit Provider Obstetrics & Gynecology
DX: R10.2 Pelvic and perineal pain (principal); N83.8 Other noninflammatory disorders of ovary, fallopian tube and broad ligament; N83.292 Other ovarian cyst, left side
CPT/HCPCS: 76830

== ENCOUNTER 2024-04-16 12:01 | Outpatient (OUT) | payer OTHER, SELFPAY ==
[2024-04-16 12:53] LABS: Basophils Absolute Auto 0.1 10^3/uL (0.0-0.1); Basophils Percent Auto 0.5 % (0.2-2.0); Eosinophils Absolute Auto 0.1 10^3/uL (0.0-0.7); Eosinophils Percent Auto 0.7 % (0.9-7.0); Hematocrit 38.9 % (36.0-48.0); Hemoglobin 12.9 g/dL (12.0-16.0); Immature Granulocytes Abs Auto 0.05 10^3/uL (0.00-0.03); Immature Granulocytes Pct Auto 0.5 % (0.0-0.5); Lymphocytes Absolute Auto 1.8 10^3/uL (1.2-3.8); Lymphocytes Percent Auto 19.1 % (20.5-60.0); Mean Corpuscular HGB Conc 33.2 g/dL (29.9-35.2); Mean Corpuscular Hemoglobin 31.7 pg (26.7-34.0); Mean Corpuscular Volume 95.6 fL (81.0-99.0); Monocytes Absolute Auto 0.4 10^3/uL (0.3-0.8); Monocytes Percent Auto 4.5 % (1.7-12.0); Neutrophils Percent Auto 74.7 % (43.0-75.0); Platelet Count 223 10^3/uL (150-450); Red Blood Count 4.07 10^6/uL (4.20-5.40); Red Cell Distribution Width 12.7 % (11.0-15.0); White Blood Count 9.4 10^3/uL (4.0-11.0)
[2024-04-16 14:03] LABS: Alanine Aminotransferase 53 U/L (14-59); Albumin Globulin Ratio 1.2; Albumin Level 3.7 g/dL (3.4-5.0); Alkaline Phosphatase 72 U/L (46-116); Anion Gap 11.9; Aspartate Amino Transferase 20 U/L (15-37); BUN Creatinine Ratio 9.9; Bilirubin Total 0.4 mg/dL (0.2-1.0); C Reactive Protein <0.50 mg/dL (<=0.50); Calcium 8.9 mg/dL (8.5-10.1); Carbon Dioxide 27.5 mmol/L (21.0-32.0); Chloride 104 mmol/L (98-107); Estimated GFR (African America >60 (>=60); Estimated GFR (Non-African Ame >60 (>=60); Globulin 3.1 g/dL; Glucose 87 mg/dL (74-106); Potassium 3.4 mmol/L (3.5-5.1); Sodium 140 mmol/L (136-145); Thyroid Stimulating Hormone 0.994 uIU/mL (0.358-3.740); Total Protein 6.8 g/dL (6.4-8.2); Uric Acid 3.3 mg/dL (2.6-6.0)
[2024-04-16 14:31] LABS: Free T4 0.73 ng/dL (0.76-1.46)
[2024-04-17 04:07] LABS: Antistreptolysin O Ab 580.6 IU/mL (0.0-200.0); Rheumatoid Factor (RF) 10.8 IU/mL (<14.0)
[2024-04-17 16:10] LABS: Antinuclear Antibodies, IFA Negative (.)
== END 2024-04-16 12:02 | disposition home or self-care (01) ==
LOC: LAB 12:02
PROVIDERS: PCP Family Medicine; Visit Provider Family Medicine
DX: R22.33 Localized swelling, mass and lump, upper limb, bilateral (principal)
CPT/HCPCS: 36415; 80053; 84439; 84443; 84550; 85025; 86038; 86060; 86140; 86431

== ENCOUNTER 2024-04-27 09:38 | Outpatient (RCR) | payer OTHER, SELFPAY | END 2024-05-18 10:35 | disposition home or self-care (01) | LOC: OT 09:38 | PROVIDERS: PCP Family Medicine; Visit Provider Family Medicine | DX: R22.33 Localized swelling, mass and lump, upper limb, bilateral (principal) | CPT/HCPCS: 97014; 97018; 97035; 97110; 97140; 97166; 97530 ==

== ENCOUNTER 2024-05-09 08:47 | Outpatient (OUT) | payer OTHER, SELFPAY ==
--- NOTE | 2024-05-09 08:53 | XR_ITS ---
The [address] [address] Patient Name: BAO LARA MRN: [id number] date: 1990 Sex: F Assigned Patient Location: [facility] Current Patient Location: Accession/Order Number: [id number] Exam Date: 05/09/2024 09:05 Report Date: 05/10/2024 06:04 At the request of: PRASHANT BERMUDEZ Procedure: XR cervical spine 2-3V EXAMINATION: XR cervical spine 2-3V HISTORY: neck pain M54.2 ; bilateral arm pain COMPARISON: CT cervical spine 09/24/2023 XR cervical spine 06/27/2023 FINDINGS: BONES: Straightening of normal lordotic curvature. Mechanical fusion C5-C6-C7 via anterior plate and screws. No appreciable hardware fracture loosening. Bone strut placement within C6. No significant facet arthropathy. DISC SPACES: Mild narrowing C5-C6 and C6-C7. PARASPINOUS: Negative. No paraspinous abnormality is seen. OTHER: Negative. XR/XR cervical spine 2-3V IMPRESSION: 1. Stable surgical changes without evidence of hardware failure or change in alignment. 2. No appreciable acute abnormality. Electronically authenticated by: SHANNA BALDERAS Date: 05/10/2024 06:04
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
== END 2024-05-09 08:48 | disposition home or self-care (01) ==
PROVIDERS: PCP Family Medicine; Visit Provider Family Medicine
DX: M54.2 Cervicalgia (principal); Z98.890 Other specified postprocedural states
CPT/HCPCS: 72040

== ENCOUNTER 2024-05-17 08:50 | Outpatient (OUT) | payer OTHER, SELFPAY ==
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
--- NOTE | 2024-05-17 09:33 | XR_ITS ---
The [address] [address] Patient Name: BAO LARA MRN: [id number] date: 1990 Sex: F Assigned Patient Location: LAB Current Patient Location: Accession/Order Number: [id number] Exam Date: 05/17/2024 09:40 Report Date: 05/18/2024 05:44 At the request of: PRASHANT BERMUDEZ Procedure: XR lumbar spine 2-3V EXAMINATION: XR lumbar spine 2-3V HISTORY: Other Low Back Pain M54.59 . COMPARISON: No relevant comparison available. FINDINGS: BONES: No significant spondylosis, scoliosis, fracture, or visible bony lesion. DISC SPACES: No significant disc height narrowing, subluxation, or endplate abnormality. PARASPINOUS: Stone within gallbladder. OTHER: Negative. XR/XR lumbar spine 2-3V IMPRESSION: 1. No acute abnormality or appreciable degenerative changes of the lumbar spine. 2. Cholelithiasis. Electronically authenticated by: SHANNA BALDERAS Date: 05/18/2024 05:44
[2024-05-18 14:10] LABS: Antistreptolysin O Ab 511.4 IU/mL (0.0-200.0)
== END 2024-05-17 08:51 | disposition home or self-care (01) ==
LOC: LAB 08:53
PROVIDERS: PCP Family Medicine; Visit Provider Family Medicine
DX: R50.9 Fever, unspecified (principal); R53.83 Other fatigue; M54.59 Other low back pain; K80.20 Calculus of gallbladder without cholecystitis without obstruction
CPT/HCPCS: 36415; 72100; 86060; 86215

== ENCOUNTER 2024-05-23 09:25 | Outpatient (OUT) | payer OTHER, SELFPAY ==
--- NOTE | 2024-05-23 | US_ITS ---
The [address] [address] Patient Name: BAO LARA MRN: [id number] date: 1990 Sex: F Assigned Patient Location: US Current Patient Location: Accession/Order Number: [id number] Exam Date: 05/23/2024 09:30 Report Date: 05/24/2024 08:24 At the request of: PRASHANT BERMUDEZ Procedure: US right upper quadrant EXAM: US right upper quadrant HISTORY: . RUQ Pain . COMPARISON: None. TECHNIQUE: Grayscale and color imaging was performed FINDINGS: The pancreas appears normal. The liver is normal in size. No masses are noted. Color-flow is noted in the portal and hepatic veins. Common bile duct is normal measuring 4 mm. Scanning of the gallbladder demonstrates echogenic foci within the gallbladder with shadowing consistent with a gallstone. No gallbladder wall thickening is noted. Patient had no pain upon scanning over the gallbladder. Right kidney measures 9.6 x 5.3 x 3.5 cm. No solid renal cortical masses or hydronephrosis is noted. No fluid is noted in the right upper quadrant US/US right upper quadrant IMPRESSION: 1. 9 mm gallstone. No gallbladder wall thickening. Patient had no pain upon scanning over the gallbladder. 2. The remainder the right upper quadrant was unremarkable. Electronically authenticated by: LEANN ARVIZU Date: 05/24/2024 08:24
== END 2024-05-23 09:26 | disposition home or self-care (01) ==
LOC: US 09:26
PROVIDERS: PCP Family Medicine; Visit Provider Family Medicine
DX: R10.9 Unspecified abdominal pain (principal); K80.20 Calculus of gallbladder without cholecystitis without obstruction
CPT/HCPCS: 76705

== ENCOUNTER 2024-05-25 10:01 | Outpatient (OUT) | payer OTHER, SELFPAY ==
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
[2024-05-25 11:32] LABS: Free T4 0.79 ng/dL (0.76-1.46)
[2024-05-25 11:56] LABS: Alanine Aminotransferase 133 U/L (14-59); Albumin Globulin Ratio 1.2; Albumin Level 3.4 g/dL (3.4-5.0); Alkaline Phosphatase 83 U/L (46-116); Amylase 31 U/L (25-115); Anion Gap 12.9; Aspartate Amino Transferase 106 U/L (15-37); BUN Creatinine Ratio 11.1; Bilirubin Total 0.2 mg/dL (0.2-1.0); Calcium 8.6 mg/dL (8.5-10.1); Carbon Dioxide 23.7 mmol/L (21.0-32.0); Chloride 106 mmol/L (98-107); Estimated GFR (African America >60 (>=60); Estimated GFR (Non-African Ame >60 (>=60); Globulin 2.9 g/dL; Glucose 78 mg/dL (74-106); Potassium 3.6 mmol/L (3.5-5.1); Sodium 139 mmol/L (136-145); Thyroid Stimulating Hormone 1.415 uIU/mL (0.358-3.740); Total Protein 6.3 g/dL (6.4-8.2)
== END 2024-05-25 10:02 | disposition home or self-care (01) ==
LOC: LAB 10:02
PROVIDERS: PCP Family Medicine; Visit Provider Family Medicine
DX: R10.0 Acute abdomen (principal); I10 Essential (primary) hypertension; R74.8 Abnormal levels of other serum enzymes; E03.9 Hypothyroidism, unspecified; Z13.220 Encounter for screening for lipoid disorders
CPT/HCPCS: 36415; 80053; 82150; 83690; 84439; 84443

== ENCOUNTER 2024-05-28 08:57 | Outpatient (OUT) | payer OTHER, SELFPAY ==
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
[2024-05-28 10:11] LABS: Free T4 0.78 ng/dL (0.76-1.46)
[2024-05-28 10:17] LABS: Alanine Aminotransferase 66 U/L (14-59); Albumin Globulin Ratio 1.1; Albumin Level 3.4 g/dL (3.4-5.0); Alkaline Phosphatase 82 U/L (46-116); Amylase 31 U/L (25-115); Anion Gap 10.8; Aspartate Amino Transferase 21 U/L (15-37); BUN Creatinine Ratio 11.3; Bilirubin Total 0.3 mg/dL (0.2-1.0); Calcium 8.5 mg/dL (8.5-10.1); Carbon Dioxide 23.8 mmol/L (21.0-32.0); Chloride 105 mmol/L (98-107); Estimated GFR (African America >60 (>=60); Estimated GFR (Non-African Ame >60 (>=60); Globulin 3.1 g/dL; Glucose 92 mg/dL (74-106); Potassium 3.6 mmol/L (3.5-5.1); Sodium 136 mmol/L (136-145); Thyroid Stimulating Hormone 0.958 uIU/mL (0.358-3.740); Total Protein 6.5 g/dL (6.4-8.2)
[2024-05-29 08:15] LABS: HBsAg Screen Negative (Negative); HCV Ab Non Reactive (Non Reactive); Hep A Ab, IgM Negative (Negative); Hep B Core Ab, IgM Negative (Negative)
== END 2024-05-28 08:58 | disposition home or self-care (01) ==
LOC: LAB 08:58
PROVIDERS: PCP Family Medicine; Visit Provider Family Medicine
DX: R74.8 Abnormal levels of other serum enzymes (principal); R10.0 Acute abdomen
CPT/HCPCS: 36415; 80053; 80074; 82150; 83690; 84439; 84443

== ENCOUNTER 2024-06-08 06:35 | Outpatient (OUT) | payer OTHER, SELFPAY ==
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
--- NOTE | 2024-06-08 06:39 | MR_ITS ---
[address] [address] Patient Name: BAO LARA MRN: [id number] date: 1990 Sex: F Assigned Patient Location: MRI Current Patient Location: MRI Accession/Order Number: [id number] Exam Date: 06/08/2024 06:45 Report Date: 06/08/2024 07:48 At the request of: PRASHANT BERMUDEZ Procedure: MR thoracic spine wo con EXAMINATION: MR thoracic spine wo con HISTORY: Neck Pain M54.2 ; thoracic pain with limited range of motion in neck and right shoulder due to pain; no known injury COMPARISON: No relevant comparison available. TECHNIQUE: Axial T2; Sagittal T1, T2, and Stir sequences. Images were performed without contrast. FINDINGS: CORD: Normal caliber, contour, and signal intensity. BONES: No fracture, pars defect, or osseous lesion. DISCS: No significant disc/facet abnormality, spinal stenosis, or foraminal stenosis. PARASPINAL AREA: No visible mass. OTHER: Mild narrowing of the left T3-4 neural foramen which appears to be due to posterior ligament or facet joint capsule thickening. MR/MR thoracic spine wo con IMPRESSION: 1. No specific findings to account for patient's symptoms. No significant degenerative changes. 2. Mild narrowing of the T3-4 left neural foramen of questionable clinical significance. Electronically authenticated by: SHANNA BALDERAS Date: 06/08/2024 07:48
== END 2024-06-08 06:36 | disposition home or self-care (01) ==
LOC: MRI 06:35
PROVIDERS: PCP Family Medicine; Visit Provider Family Medicine
DX: M54.2 Cervicalgia (principal)
CPT/HCPCS: 72146

== ENCOUNTER 2024-07-06 16:28 | Emergency (ER) | payer OTHER, SELFPAY ==
[2024-07-06 16:39] VITALS: BP 145/89; PULSE 88; TEMP 36.6; O2SAT 100; BMI 27.4
--- NOTE | 2024-07-06 16:59 | XR_ITS ---
The [address] [address] Patient Name: BAO LARA MRN: [id number] date: 1990 Sex: F Assigned Patient Location: ER Current Patient Location: ER Accession/Order Number: [id number] Exam Date: 07/06/2024 17:34 Report Date: 07/06/2024 19:37 At the request of: MED GILLIS Procedure: XR lumbar spine 2-3V EXAM: XR lumbar spine 2-3V HISTORY: The patient is a 34-year-old female, pain s/p fall COMPARISON: 05/17/2024. FINDINGS: The lumbar spine is radiographically negative with no evidence of fracture, loss of vertebral body height, disc space narrowing, or malalignment. The sacroiliac joints are maintained. XR/XR lumbar spine 2-3V IMPRESSION: Negative. Electronically authenticated by: NATALIA FARR Date: 07/06/2024 19:37
--- NOTE | 2024-07-06 16:59 | CT_ITS ---
The [address] [address] Patient Name: BAO LARA MRN: [id number] date: 1990 Sex: F Assigned Patient Location: ER Current Patient Location: ER Accession/Order Number: [id number] Exam Date: 07/06/2024 17:25 Report Date: 07/06/2024 17:50 At the request of: MED GILLIS Procedure: CT cervical spine wo con EXAM: CT cervical spine wo con HISTORY: pain s/p fall, prior history of neck surgery COMPARISON: 10/02/2023 TECHNIQUE: Multiple thin computed tomograms of the cervical spine were obtained, with sagittal and coronal reconstructions. Radiation reduction technique and the lungs are utilized during the study FINDINGS: There is straightening of the normal lordotic curvature throughout the cervical spine. The vertebral bodies are aligned. Remote postsurgical changes are present with a block fusion procedure from C5 through C7, accompanied by anterior hardware. No focal abnormality is otherwise identified in the vertebral bodies. The disc spaces are otherwise intact. Very small osteophytes arise from the anterior arch of C1 and the dens. There is no evidence of a fracture or subluxation at the base of the skull. There is no evidence of a fracture or subluxation involving the facets. The posterior elements are intact. The posterior soft tissues appear unremarkable. At all the disc levels throughout the cervical spine, there is no evidence of disc herniation or spinal stenosis. The neural foramina are relatively patent bilaterally. No focal abnormality is seen in the spinal canal. The airway is intact anteriorly. CT/CT cervical spine wo con IMPRESSION: Straightening of the normal lordotic curvature. Minimal degenerative changes are present. Remote postsurgical changes are noted with hardware in place. There is no evidence of an acute fracture. There is no evidence of disc herniation or spinal stenosis throughout the lumbar spine. The neural foramina appear relatively patent bilaterally throughout. No abnormality is seen within the cervical spinal canal. The overall appearance of the cervical spine has not changed significantly. Electronically authenticated by: JONATHON ROLLE Date: 07/06/2024 17:50
--- NOTE | 2024-07-06 16:59 | CT_ITS ---
The [address] [address] Patient Name: BAO LARA MRN: [id number] date: 1990 Sex: F Assigned Patient Location: ER Current Patient Location: ER Accession/Order Number: [id number] Exam Date: 07/06/2024 17:25 Report Date: 07/06/2024 17:44 At the request of: MED GILLIS Procedure: CT head/brain wo con EXAM: CT head/brain wo con HISTORY: fall, head injury COMPARISON: None. TECHNIQUE: Multiple thin computed tomograms of the head were obtained, with sagittal and coronal reconstructions. Radiation reduction technique and algorithms were utilized during the study. FINDINGS: The ventricles are not enlarged, the lateral ventricles are symmetric and the third ventricles in the midline. The sylvian fissures and cortical sulci are unremarkable. There is no evidence of an intracranial hemorrhage, mass lesion or apparent acute infarct. No focal abnormalities identified the deep white matter. The cerebellum and visualized brainstem are intact. The visualized paranasal sinuses are clear. The middle ears are aerated. The mastoid sinuses are clear. There is no apparent acute skull fracture. CT/CT head/brain wo con IMPRESSION: There is no evidence of an intracranial hemorrhage, mass lesion or apparent acute infarct. The visualized sinuses are clear. There is no apparent acute skull fracture. Electronically authenticated by: JONATHON ROLLE Date: 07/06/2024 17:44
--- NOTE | 2024-07-06 16:59 | XR_ITS ---
The [address] [address] Patient Name: BAO LAAR MRN: [id number] date: 1990 Sex: F Assigned Patient Location: ER Current Patient Location: Accession/Order Number: [id number] Exam Date: 07/06/2024 17:34 Report Date: 07/06/2024 19:35 At the request of: MED GILLIS Procedure: XR thoracic spine 2V EXAM: XR thoracic spine 2V HISTORY: The patient is a 34-year-old female, pain s/p fall COMPARISON: None. FINDINGS: The thoracic spine is radiographically negative with no evidence of fracture, loss of vertebral body height, disc space narrowing, or malalignment. XR/XR thoracic spine 2V IMPRESSION: Negative. Electronically authenticated by: NATALIA FARR Date: 07/06/2024 19:35
--- NOTE | 2024-07-06 17:02 | ED_ITS ---
HPI HPI - General Adult General Chief complaint: Fall Stated complaint: FELL, DIZZINESS, NECK BACK PAIN, NUMBNESS Time Seen by Provider: 07/06/24 16:50 Source: patient Mode of arrival: walk-in Limitations: no limitations History of Present Illness HPI narrative: Patient is a 34-year-old female who presents to the ER with concerns of acute on chronic neck pain. 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 Patient states she hit her neck on the ground, no loss of consciousness and has pain from the neck thoracic spine and lower back. She denies any radicular symptoms in the lower legs. She reports chronic numbness in the bilateral upper extremities and sees a field service specialist at [facility] and has had prior neck surgery and they are watching other bulging disks. Patient states she has had trouble with her balance since her neck pain has worsened. LMP was 06/28. Patient currently sexually active. Patient denies any dizziness or loss of consciousness. States her neck specialist has her on a muscle relaxant. Patient noted to have midline neck tenderness and was placed in a c-collar on arrival. Related Data Home Medications ?Medication ?Instructions ?Recorded ?Confirmed diazepam 5 mg tablet 5 mg PO Q8H PRN muscle spasm 10/02/23 10/02/23 Previous Rx's ?Medication ?Instructions ?Recorded cephalexin 500 mg capsule 500 mg PO BID 10 days #20 caps 10/02/23 nabumetone 750 mg tablet 750 mg PO BID pain #20 tabs 10/02/23 prednisone 20 mg tablet 40 mg (2 x 20 mg) PO ONCE 5 days 07/06/24 #10 tabs tizanidine 4 mg tablet 4 mg PO TID PRN muscle spasticity 07/06/24 #12 tabs Allergies Allergy/AdvReac Type Severity Reaction Status Date / Time atropine Allergy Severe Confusion Verified 08/09/23 09:09 fentanyl Allergy Severe CONFUSION Verified 08/09/23 09:09 midazolam (From Versed) Allergy Severe Confusion Verified 08/09/23 09:09 propofol Allergy Severe Confusion Verified 08/09/23 09:09 amoxicillin Allergy Unknown Verified 08/09/23 09:09 codeine Allergy Unknown Verified 08/09/23 09:09 Opioid HPI Opioid Management Most Recent Opioid Data: Last Pain Scale 10 10/02/23 19:40 10/02/23 Ur Phencyclidine Scrn Negative (NEGATIVE) 07/06/23 07:36 0 09/27 Review of Systems ROS Constitutional Denies: fever, chills or fatigue Eyes Denies: change in vision Ears, nose, mouth, and throat Reports: neck pain; Denies: throat pain Cardiovascular Denies: chest pain or palpitations Respiratory Denies: shortness of breath or cough Gastrointestinal Denies: abdominal pain Genitourinary Denies: painful urination Musculoskeletal Reports: back pain and neck pain; Denies: extremity pain Integumentary/Breast Denies: rash or itching Neurological Reports: numbness in extremities (Not new per patient-involving upper extremities); Denies: headache Psychiatric Denies: anxiety Endocrine Denies: excessive urination PFSH PFSH Social History Smoking status: Current every day smoker Little interest or pleasure in doing things: not at all Feeling down, depressed, or hopeless: not at all Exam Narrative Exam Narrative: Nurses notes and vital signs reviewed and patient is not hypoxic. General: The patient appears well,tearfull regarding fall and in no apparent distress. Patient is resting comfortably on cart. Skin: Warm, dry, no pallor noted. Head: Normocephalic, atraumatic Neck: Supple, trachea mid-line, prior anterior cervical scar noted, patient has tenderness along the midline of her cervical spine. No lymphadenopathy Eye: Pupils are equal, round and reactive to light, EOMI Ears, Nose, Mouth, and Throat: TM are clear, normal light reflex, oral mucosa is moist, no posterior oropharynx erythema or hypertrophy, uvula is mid-line Cardiovascular: Regular Rate and Rhythm Respiratory: Patient is in no distress, no accessory muscle use, lungs are clear to auscultation, no wheezing, rales or rhonchi. Chest Wall: no tenderness Back: Tenderness to thoracic and lumbar spine. No CVA tenderness Musculoskeletal: normal ROM, no tenderness, no swelling GI: Normal bowel sounds, no tenderness to palpation, no masses appreciated. No rebound, guarding, or rigidity noted. Neurological: A&O x4, tingling reported to the bilateral upper arms unchanged from baseline. Psychiatric: Cooperative Constitutional Vital Signs, click to edit/add: Last Vital Signs Temp 97.9 F 07/06/24 16:39 Pulse 88 07/06/24 16:39 Resp 16 07/06/24 16:39 BP 145/89 H 07/06/24 16:39 Pulse Ox 100 07/06/24 16:39 Course Vital Signs Vital signs: Vital Signs Temperature 97.9 F 07/06/24 16:39 Pulse Rate 88 07/06/24 16:39 Respiratory Rate 16 07/06/24 16:39 Blood Pressure 145/89 H 07/06/24 16:39 Pulse Oximetry 100 07/06/24 16:39 Temperature 97.9 F 07/06/24 16:39 Pulse Rate 88 07/06/24 16:39 Respiratory Rate 16 07/06/24 16:39 Blood Pressure 145/89 H 07/06/24 16:39 Pulse Oximetry 100 07/06/24 16:39 Medical Decision Making MDM Narrative Medical decision making narrative: Patient will be checked for before additional medications/pain., we discussed her symptoms with recent fall prior to arrival versus chronic symptoms which she has been addressing with her neck specialist in [place]. Patient denies dizziness but states she has had trouble with her balance with prior neck surgery. I don't know why I am falling. Reevaluated after medications, she appears improved, her c-collar was removed, patient seated on edge of bed as there was a delay in getting the lumbar spine and thoracic spine x-rays read. We discussed the pulmonary interpretation showing no acute fracture, radiologist interpretation pending. We discussed her cervical spine and head CT. Fall, difficulty that she has had with her balance recently. Patient states the muscle relaxant prescribed by her family doctor makes her feel somewhat drowsy. We discussed this is a side effect of most muscle relaxants. She has taken tizanidine in the past with more tolerable results, a prescription was sent to her pharmacy. She will not take multiple muscle relaxants. We discussed using Tylenol and doing a short course of prednisone for an anti-inflammatory effect. Given her chronic numbness in the upper extremities following her previous neck surgery she is encouraged to follow-up with her field service specialist for reevaluation. The patient is to followup with primary care physician in next 2-3 days or to return to the emergency department should any of the signs or symptoms worsen or new symptoms develop. Patient had questions answered. The patient agrees with the following Diagnosis and Treatment plan and the patient will be discharged home. Lab Data Labs: Lab Results 07/06/24 Range/Units 17:07 Serum HCG, Qual Negative (NEGATIVE) Imaging Data CT scan - head: My impression: Review of 2 view lumbar spine and thoracic spine show no acute fracture, radiologist interpretation pending. We discussed some anterior osteophytes on the vertebral bodies with some disc space narrowing. Radiologist's impression: ITS Impressions Cervical Spine CT 07/06/24 16:59 IMPRESSION: Straightening of the normal lordotic curvature. Minimal degenerative changes are present. Remote postsurgical changes are noted with hardware in place. There is no evidence of an acute fracture. There is no evidence of disc herniation or spinal stenosis throughout the lumbar spine. The neural foramina appear relatively patent bilaterally throughout. No abnormality is seen within the cervical spinal canal. The overall appearance of the cervical spine has not changed significantly. Electronically authenticated by: JONATHON ROLLE Date: 07/06/2024 17:[address] 07/06/24 16:59 IMPRESSION: There is no evidence of an intracranial hemorrhage, mass lesion or apparent acute infarct. The visualized sinuses are clear. There is no apparent acute skull fracture. Electronically authenticated by: JONATHON ROLLE Date: 07/06/2024 17:44 Discharge Plan Discharge Chief Complaint: Fall Clinical Impression: Cervical strain, Back pain Patient Disposition: Home, Self-Care Time of Disposition Decision: 19:06 Condition: Good Prescriptions / Home Meds: New prednisone 20 mg tablet 40 mg PO ONCE 5 Days Qty: 10 0RF tizanidine 4 mg tablet 4 mg PO TID PRN (Reason: muscle spasticity) Qty: 12 0RF No Action diazepam 5 mg tablet 5 mg PO Q8H PRN (Reason: muscle spasm) cephalexin 500 mg capsule 500 mg PO BID 10 Days Qty: 20 0RF nabumetone 750 mg tablet 750 mg PO BID Qty: 20 0RF Print Language: Peruvian Instructions: Cervical Strain (ED), Acute Low Back Pain (ED) Additional Instructions: Please keep appt with neurology Do not take multiple muscle relexants ( Tizandine, tylenol and prednisone) Pt reports adverse Side effect from Dr. Boyd's prescription Referrals: Sven Boyd MD [Primary Care Provider] - 1 week
[2024-07-06 17:30] LABS: HCG Qualitative NEGATIVE (NEGATIVE); Internal Control Within Normal Limits
[2024-07-06] MEDS: ACETAMINOPHEN 500 MG TABLET 1000 MG PO (17:43)
[2024-07-06] MEDS: CYCLOBENZAPRINE HCL 10 MG TABLET PO (17:43)
[2024-07-06] MEDS: KETOROLAC TROMETHAMINE 60 MG/2 ML VIAL IM (17:44)
== END 2024-07-06 19:31 | disposition home or self-care (01) ==
PROVIDERS: Personal Emergency Response Attendant; Emergency Provider Emergency Medicine; PCP Family Medicine
DX: S16.1XXA Strain of muscle, fascia and tendon at neck level, initial encounter (principal); F17.200 Nicotine dependence, unspecified, uncomplicated; W18.39XA Other fall on same level, initial encounter; Z91.81 History of falling; M54.50 Low back pain, unspecified; M54.6 Pain in thoracic spine
CPT/HCPCS: 36415; 70450; 72070; 72100; 72125; 84703; 96372; 99285; J1885

== ENCOUNTER 2024-07-12 08:48 | Outpatient (RCR) | payer OTHER, SELFPAY | END 2024-08-14 10:58 | disposition home or self-care (01) | LOC: PT 08:48 | PROVIDERS: PCP Family Medicine; Visit Provider Psychiatry & Neurology Neurology | DX: G95.9 Disease of spinal cord, unspecified (principal); R53.1 Weakness | CPT/HCPCS: 97110; 97112; 97161 ==

== ENCOUNTER 2024-07-13 08:45 | Outpatient (OUT) | payer OTHER, SELFPAY ==
--- NOTE | 2024-07-13 08:50 | CT_ITS ---
The [address] [address] Patient Name: BAO LARA MRN: [id number] date: 1990 Sex: F Assigned Patient Location: CT Current Patient Location: Accession/Order Number: [id number] Exam Date: 07/13/2024 10:05 Report Date: 07/17/2024 07:38 At the request of: TENZIN BRAXTON Procedure: CT abdomen pelvis w con EXAM: CT abdomen pelvis w con HISTORY: Right Upper Quadrant Pain, Epigastric Pain COMPARISON: None. TECHNIQUE: Following intravenous administration of 100 mL of Omnipaque 300, axial soft tissue windows of the abdomen and pelvis performed with coronal and sagittal reformats. CT dose reduction technique was used including Automated Exposure Control. Findings: Small focal region of fatty infiltration within segment 4 of the liver adjacent to the falciform ligament. Stone within the gallbladder. Spleen, pancreas, and adrenal glands are unremarkable. No renal stones. There is mild bilateral renal collecting system and ureteral dilatation. No ureteral stone. The bowel is unremarkable without evidence of wall thickening or obstruction. The appendix nondilated. The aorta is normal caliber. No enlarged abdominal lymph nodes or free abdominal fluid. Pelvis: Unremarkable bladder. Uterus is present and unremarkable within the limits of CT. No enlarged pelvic lymph nodes or free pelvic fluid. No aggressive sclerotic or lytic osseous lesions. CT/CT abdomen pelvis w con IMPRESSION: 1. Cholelithiasis. 2. Other nonemergent findings, as described above. Electronically authenticated by: ERWIN ALEX Date: 07/17/2024 07:38
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
== END 2024-07-13 08:46 | disposition home or self-care (01) ==
LOC: CT 08:45
PROVIDERS: PCP Family Medicine; Visit Provider Surgery
DX: R10.11 Right upper quadrant pain (principal); R10.13 Epigastric pain; M54.9 Dorsalgia, unspecified; K80.20 Calculus of gallbladder without cholecystitis without obstruction
CPT/HCPCS: 74177; Q9967

== ENCOUNTER 2024-07-16 14:11 | Outpatient (OUT) | payer OTHER, SELFPAY ==
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
--- NOTE | 2024-07-16 15:40 | PM.CN ---
Consult Note: HPI Data of Consult Patient: new to practice Consult date: 07/16/24 Requesting Physician: Cruzito Plascencia MD Primary Care Provider: Sven Boyd MD Consult Narrative Reason for consult: neck pain, bilateral upper extremity pain Narrative: 34yof who presents for evaluation. notes longstanding neck pain with radiation into bilateral upper extremities. underwent c5-7 fusion last year. cervical imaging reviewed, which is significant for degenerative changes above the level of her fusion. has complete >6 weeks of physical therapy and continues in provider directed home exercise course >6 weeks, without benefit. uses otc pain meds, tizanidine as needed. cc:: CC: Cruzito Plascencia MD Review of Systems ROS Status of ROS 10 or more systems reviewed and unremarkable except as noted in history and below [facility] Medical History (Updated 07/16/24 @ 15:42 by Cruzito Plascencia MD) Cervical vertebral fusion ?M43.22 - Fusion of spine, cervical region (ICD-10) Carpal tunnel syndrome ?G56.00 - Carpal tunnel syndrome, unspecified upper limb (ICD-10) Surgical History (Updated 07/16/24 @ 15:42 by Sherry Mendes RN) H/O section ?Z98.891 - History of uterine scar from previous surgery (ICD-10) History of carpal tunnel release ?Z98.890 - Other specified postprocedural states (ICD-10) Social History Smoking status: Current every day smoker Little interest or pleasure in doing things: not at all Feeling down, depressed, or hopeless: not at all Meds Home Medications and Allergies Home Medications ?Medication ?Instructions ?Recorded ?Confirmed ?Type tizanidine 4 mg tablet 4 mg PO TID PRN muscle spasticity 07/06/24 Rx #12 tabs gabapentin 100 mg capsule 100 mg PO BID 07/16/24 07/16/24 History Allergies Allergy/AdvReac Type Severity Reaction Status Date / Time atropine Allergy Severe Confusion Verified 08/09/23 09:09 fentanyl Allergy Severe CONFUSION Verified 08/09/23 09:09 midazolam (From Versed) Allergy Severe Confusion Verified 08/09/23 09:09 propofol Allergy Severe Confusion Verified 08/09/23 09:09 amoxicillin Allergy Unknown Verified 08/09/23 09:09 codeine Allergy Unknown Verified 08/09/23 09:09 Exam Narrative Exam Narrative: Psych-alert and oriented x 3.? Attentive and appropriate, constitutionally normal, displays normal mood and affect per situation.? There are no obvious deficits in memory, reasoning, or intellect.? Skin-no obvious rashes, bruising, or erythema noted to the patient's area of pain.? Extremities-upper extremities are warm with minimal edema and palpable pulses. Cervical- tenderness to palpation noted in the cervical spine and paraspinal musculature.? Pain is elicited with flexion, extension, and lateral rotation of the cervical spine.? Range of motion is diminished due to pain. Facet loading maneuvers are positive.? Strength-unremarkable and within normal limits Sensory-no notable sensory deficits in the bilateral upper extremities to touch or pinprick with the exception to decreased sensation to the bilateral C4, 5, 6 dermatomal distribution.? Coordination remains intact.? Gait remains non-antalgic. Assessment and Plan Assessment and Plan (1) Cervical radiculopathy: (2) Cervical spondylosis: Plan 34yof who presents for evaluation. failed conservative measures, as noted. imaging reviewed, as noted. given symptoms and imaging findings, prudent to attempt bilateral c5-6 tfesi under fluoroscopic guidance, as requested by her neurosurgeon. she is in agreement. meds reviewed, no changes. follow up after procedure.
== END 2024-07-16 14:12 | disposition home or self-care (01) ==
LOC: PM 14:11
PROVIDERS: PCP Family Medicine; Visit Provider Anesthesiology
DX: M54.12 Radiculopathy, cervical region (principal); M47.812 Spondylosis without myelopathy or radiculopathy, cervical region
CPT/HCPCS: G0463

== ENCOUNTER 2024-08-06 07:15 | Day surgery (SDC) | payer OTHER, SELFPAY ==
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
[2024-08-06 07:34] VITALS: BP 127/84; PULSE 73; TEMP 36.9; O2SAT 100
[2024-08-06 07:42] LABS: HCG Qualitative NEGATIVE (NEGATIVE); Internal Control Within Normal Limits
[2024-08-06 08:09] VITALS: PULSE 75; O2SAT 100
[2024-08-06 08:10] VITALS: BP 119/58
[2024-08-06] MEDS: BUPIVACAINE HCL 0.25% PF 25 MG/10 ML VIAL INJ (08:10)
[2024-08-06] MEDS: DEXAMETHASONE SOD PHOS 10 MG/ML VIAL INJ (08:10)
[2024-08-06] MEDS: IOHEXOL 240 MG/ML - 10 ML VIAL 24 MG INJ (08:11)
[2024-08-06] MEDS: LIDOCAINE HCL 2% 400 MG/20 ML MDV 3 ML INJ (08:11)
[2024-08-06 08:12] VITALS: BP 118/61; PULSE 78; O2SAT 98
--- NOTE | 2024-08-06 08:14 | W.PM.PROCNOT ---
Date of procedure: 08/06/24 Pre-op diagnosis: Pain due to cervical radiculopathy Post-op diagnosis: same as pre-op Procedure: Procedure: Bilateral C5-6 transforaminal epidural steroid injection Medications: Bupivacaine 0.25% 1cc, lidocaine 2% 1cc, dexamethasone 10mg The patient was seen and examined in the preoperative holding area.? Informed consent was obtained and placed on the chart.? Patient was brought to the medical procedure unit and placed in the prone position where a timeout was completed verifying the correct patient, procedure site, position, and planned special equipment using sterile aseptic technique.? Under direct fluoroscopic visualization a 25-gauge Quincke tipped spinal needle was advanced at level left C5-6 to the designated neural foramen where contrast dye was injected to show adequate spread.? There was no evidence of vascular or adverse uptake.? Epidural spread was appreciated.? The above-mentioned injectate was then placed in a 1.5 mL aliquot preceded by negative aspiration.? The needle was removed. The same procedure, at the same level, was completed on the opposite side. ? Patient was taken to the postprocedural recovery area and monitored for an appropriate length of time before found suitable for discharge in the accompaniment of a responsible adult. Anesthesia: Local Surgeon: Cruzito Plascencia Pathology: none sent Condition: stable Disposition: no change
== END 2024-08-06 08:17 | disposition home or self-care (01) ==
LOC: SURGOUT 07:16
PROVIDERS: PCP Family Medicine; Visit Provider Anesthesiology
DX: M54.12 Radiculopathy, cervical region (principal)
CPT/HCPCS: 36415; 64479; 84703; J0665; J1100; Q9966

== ENCOUNTER 2024-08-27 11:05 | Outpatient (OUT) | payer OTHER, SELFPAY ==
--- NOTE | 2024-08-27 11:47 | P.CN_ITS ---
Consult Note: HPI Data of Consult Patient: known to practice within the last 3 years Consult date: 08/27/24 Requesting Physician: Cruzito Plascencia MD Primary Care Provider: Sven Boyd MD Consult Narrative Reason for consult: neck, right arm pain Narrative: 34yof who presents for assessment. continues to have significant neck, right arm pain, headaches. has been using mostly ibuprofen for headaches. is fused from c5-7. no mri aavailable for review. continues in a series of provider directed home exercises for >6 weeks, without significant benefit. denies adverse med side effects. cc:: CC: Cruzito Plascencia MD Review of Systems ROS Status of ROS 10 or more systems reviewed and unremark able except as noted in history and below [facility] Medical History (Updated 08/27/24 @ 11:49 by Cruzito Plascencia MD) Neck problem ?R68.89 - Other general symptoms and signs (ICD-10) Smoker ?F17.200 - Nicotine dependence, unspecified, uncomplicated (ICD-10) Cervical vertebral fusion ?M43.22 - Fusion of spine, cervical region (ICD-10) Carpal tunnel syndrome ?G56.00 - Carpal tunnel syndrome, unspecified upper limb (ICD-10) Surgical History H/O cervical spine surgery ?Z98.890 - Other specified postprocedural states (ICD-10) H/O section ?Z98.891 - History of uterine scar from previous surgery (ICD-10) History of carpal tunnel release ?Z98.890 - Other specified postprocedural states (ICD-10) Social History Smoking status: Current every day smoker Little interest or pleasure in doing things: not at all Feeling down, depressed, or hopeless: not at all Meds Home Medications and Allergies Home Medications ?Medication ?Instructions ?Recorded ?Confirmed ?Type tizanidine 4 mg tablet 4 mg PO TID PRN muscle spasticity 07/06/24 08/06/24 Rx #12 tabs gabapentin 100 mg capsule 100 mg PO BID 07/16/24 08/06/24 History vtkqlmuxhv-wvvbdbcydszos-aqtosphk 1 cap PO Q8H PRN headache #10 caps 08/27/24 Rx 50 mg-300 mg-40 mg capsule (Fioricet) Allergies Allergy/AdvReac Type Severity Reaction Status Date / Time atropine Allergy Severe Confusion Verified 08/06/24 07:43 fentanyl Allergy Severe CONFUSION Verified 08/06/24 07:43 midazolam (From Versed) Allergy Severe Confusion Verified 08/06/24 07:43 propofol Allergy Severe Confusion Verified 08/06/24 07:43 amoxicillin Allergy Unknown Unknown Verified 08/06/24 07:43 codeine Allergy Unknown Unknown Verified 08/06/24 07:43 Exam Narrative Exam Narrative: Psych-alert and oriented x 3.? Attentive and appropriate, constitutionally normal, displays normal mood and affect per situation.? There are no obvious deficits in memory, reasoning, or intellect.? Skin-no obvious rashes, bruising, or erythema noted to the patient's area of pain.? Extremities-upper extremities are warm with minimal edema and palpable pulses. Cervical- tenderness to palpation noted in the cervical spine and paraspinal musculature.? Pain is elicited with flexion, extension, and lateral rotation of the cervical spine.? Range of motion is diminished due to pain. Facet loading maneuvers are positive. Strength-unremarkable and within normal limits with the exception to the right biceps.? Sensory-no notable sensory deficits in the bilateral upper extremities to touch or pinprick with the exception to decreased sensation to the right C5, 6, 7 dermatomal distribution.? Coordination remains intact.? Gait remains non-antalgic. Assessment and Plan Assessment and Plan (1) Cervical spondylosis: (2) Cervical radiculopathy: (3) Cervical stenosis of spine: Plan 34yof who presents for assessment. continues to have significant symptoms from neck into right arm, worsening headaches. given failure to respond to conservative measures, coupled with surgical history, will have her undergo cervical mri with and without contrast. she is in agreement. suspect that she may benefit from c3-4, 4-5 medial branch blocks, given surgical hx and posterior headaches. medications reviewed. will have her trial fioricet tabs/month. follow up after imaging.
== END 2024-08-27 11:06 | disposition home or self-care (01) ==
PROVIDERS: PCP Family Medicine; Visit Provider Anesthesiology
DX: M47.812 Spondylosis without myelopathy or radiculopathy, cervical region (principal); M54.12 Radiculopathy, cervical region; M48.02 Spinal stenosis, cervical region
CPT/HCPCS: G0463

== ENCOUNTER 2024-10-25 13:45 | Outpatient (OUT) | payer SELFPAY | END 2024-10-25 13:46 | disposition home or self-care (01) | LOC: US 13:45 | PROVIDERS: PCP Family Medicine; Visit Provider Family Medicine | DX: R60.0 Localized edema (principal) | CPT/HCPCS: 93971 ==

== ENCOUNTER 2024-12-05 08:45 | Outpatient (OUT) | payer SELFPAY ==
--- NOTE | 2024-12-05 08:52 | CT_ITS ---
The [address] [address] Patient Name: BAO LARA MRN: [id number] date: 1990 Sex: F Assigned Patient Location: CT Current Patient Location: CT Accession/Order Number: [id number] Exam Date: 12/05/2024 09:32 Report Date: 12/05/2024 09:41 At the request of: PRASHANT BERMUDEZ MD Procedure: CT angio chest CT PULMONARY ANGIOGRAM WITH CONTRAST CLINICAL HISTORY: Pulmonary Emboli I26.99 chronic right arm pain and swelling and intermittent chest pain. COMPARISON: 05/07/2021 TECHNIQUE: Spiral images were obtained through the chest following intravenous administration of 100 mL of Omnipaque 350. Images were reviewed using both narrow and wide window settings. Sagittal, coronal and 3 D volume-rendered reconstructions were performed and reviewed. This CT exam was performed using one or more following dose reduction techniques: Automated exposure control, adjustment of the mA and/or kV according to patient size, or use of iterative reconstruction technique. FINDINGS: The heart is not enlarged. There is no pericardial effusion. No aortic aneurysm or dissection is seen. There is adequate opacification of the pulmonary arteries. No emboli are identified. No pathologic lymphadenopathy is seen. There is slight dextroscoliotic curvature. Subtle mosaic groundglass density is again noted bilaterally, similar to the prior. There is no developing consolidation, effusion or discrete soft tissue nodules. No pneumothorax is seen. Limited cuts through the upper abdomen show no contributory abnormality. CT/CT angio chest IMPRESSION: NO CT EVIDENCE OF PULMONARY EMBOLISM. NO SIGNIFICANT CHANGE FROM THE COMPARISON. Impression dictated by: Leanna Guerra M.D.12/05/2024 9:41 AM Dictation Location: [place] [address] Electronically authenticated by: [id number] Y Date: 12/05/2024 09:41
--- OUTSIDE RECORDS SUMMARY | 2024-12-05 09:07 | XMS_ITS | CCD ---
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 [address] [place] [address] Kev Whittington DO [address] [place] [address] Arrived [facility] Comment on above: Arrived Start: 07-10-2024 Adult BMI Screening Adult BMI Screen ing [facility] Start: 07-07-2024 Depression Screening Depression Scre ening [facility] Start: 06-27-2024 DTaP,Tdap and Td Vaccines (3 - Td or Tdap) DTaP,Tdap and Td Vaccines (3 - Td or Tdap) [facility] Start: 06-27-2024 DTaP/Tdap/Td Vaccine s (2 - Td or Tdap) DTaP/Tdap/Td Vaccines (2 - Td or Tdap) [facility] Start: 05-06-2024 COVID-19 Vaccine ( season) COVID-19 Vaccine ( season) [facility] Start: 05-06-2024 Influenza vaccination Influenza Vacc ine (#1) [facility] Start: 10-31-2023 End: 10-31-2023 Patient encounter procedure 10/31/2023 8:30 AM EST [facility] [address] [place] [id number] Igor Richard, SPEECH AND LANGUAGE TUTOR-ARMATURE BALANCER [address] [address] [facility] Start: 10-06-2023 End: 10-06-2024 MR Cervical spine WO contrast MR cervical spine without contrast Imaging Routine Cervical radiculopathy Expected: 10/06/2023, Expires: 10/06/2024 [facility] Work Phone: Comment on above: Expected: 10/06/2023 , Expires: 10/06/2024 Start: 05-06-2023 Influenza vaccination Influenza Vacc ine [facility] Start: 06-05-2022 Influenza vaccination Influenza Vacc ine (#1) [facility] Start: 2009 Screening for malignant neoplasm of cervix [facility] Start: 2007 Hepatitis B Vaccines (1 of 3 - 19+ 3-dose series) Hepatitis B Vaccines (1 of 3 - 19+ 3-dose series) [facility] Start: 2006 Adult BMI Follow Up Plan Adult BMI Follow Up Plan [facility] Start: 2006 [facility] C screening [facility] Start: 2006 Tetanus + diphtheria + acellular pertussis vaccine (product) Tdap Booster [facility] Start: 2003 HIV screening HIV Test [facility] Start: 2001 Varicella vaccination Varicell a Vaccines (1 of 2 - 13+ 2-dose series) [facility] Start: 1989 MMR Vaccines (1 of 1 - Standard series) MMR Vaccines (1 of 1 - Standard series) [facility] Start: 1988 COVID-19 Vaccine (#1) COVID-19 Vacci ne (#1) [facility] Start: 1988 HIV screening HIV Screening [facility] Start: 1988 Lipid panel Lipid Panel [facility] Start: 1988 Tobacco Counseling Tobacco Counselin g [facility] Start: 1988 Yearly Adult Physical Yearly Adult P hysical [facility] Immunizations Immunization Date Immunization Notes Care Provider Kwame cobb 06-13-2020 Influenza, injectabl e, Madin Anabelle Canine Kidney, preservative free, quadrivalent Sarah Sewell TOOL FILER HAND [facility] 06-13-2020 influenza virus vaccine, unspecified formulation Sarah Sewell TOOL FILER HAND [facility] 06-27-2014 tetanus toxoid, reduced diphtheria toxoid, and acellular pertussis vaccine, adsorbed Sarah Sewell TOOL FILER HAND [facility] 09-22-2011 tetanus toxoid, reduced diphtheria toxoid, and acellular pertussis vaccine, adsorbed Nikkie Looney [facility] Payers Date Payer Category Payer Medicaid (Managed Care) [employer] [id number] 2022 Unknown [id number] [id number] .[id number] 2022 Unknown [id number] 2020 Medicaid [id number]. [id number] 2020 Private Health Insurance [facility] MEDICAID [id number] 1988 Unknown [id number] 2.16.840.1.877611.3.579.2. 732 1988 Unknown [id number] 2.16.840.1.538246.3.579.2. 593 1988 Unknown [id number] 2.16.840.1.240695.3.579.2. 593 1988 Unknown [id number] 2.16.840.1.182154.3.579.2. 593 1988 Unknown [id number] 2.16.840.1.647107.3.579.2. 173 1988 Unknown [id number] 2.16.840.1.872517.3.579.2. 727 1988 Unknown [id number] 2.16.840.1.006305.3.579.2. 727 1988 Unknown [id number] 2.16.840.1.677187.3.579.2. 727 1988 Unknown [id number] 2.16.840.1.492734.3.579.2. 1286 1988 Unknown [id number] 2.16.840.1.286453.3.579.2. 1285 1988 Unknown [id number] 2.16.840.1.961693.3.579.2. 1285 1988 Unknown [id number] 2.16.840.1.805516.3.579.2. 1285 1988 Unknown [id number] 2.16.840.1.249774.3.579.2. 1285 1988 Unknown [id number] 2.16.840.1.074796.3.579.2. 1285 1988 Unknown [id number] 2.16.840.1.298682.3.579.2. 1285 1988 Unknown [id number] 2.16.840.1.598225.3.579.2. 1285 1988 Unknown [id number] 2.16.840.1.887704.3.579.2. 1285 1988 Unknown [id number] 2.16.840.1.599287.3.579.2. 1285 1988 Unknown [id number] 2.16.840.1.227603.3.579.2. 5 1988 Unknown [id number] 2.16.840.1.184409.3.579.2. 1258 1988 Unknown [id number] 2.16.840.1.621128.3.579.2. 1258 1988 Unknown [id number] 2.16.840.1.422268.3.579.2. 1258 1988 Unknown [id number] 2.16.840.1.814113.3.579.2. 1258 1988 Unknown [id number] 2.16.840.1.924896.3.579.2. 1258 1988 Unknown [id number] 2.16.840.1.710414.3.579.2. 1259 1988 Unknown [id number] 2.16.840.1.870513.3.579.2. 1259 1988 Unknown [id number] 2.16.840.1.009460.3.579.2. 1259 1988 Unknown [id number] 2.16.840.1.842404.3.579.2. 1259 1988 Unknown [id number] 2.16.840.1.779171.3.579.2. 196 1988 Unknown [id number] 2.16.840.1.316509.3.579.2. 196 1988 Unknown [id number] 2.16.840.1.537534.3.579.2. 196 1988 Unknown [id number] 2.16.840.1.183937.3.579.2. 1286 1988 Unknown [id number] 2.16.840.1.974205.3.579.2. 1286 1959 Unknown [id number] 1959 Unknown [id number] Social History Date Type Detail Facility Tobacco Current every da y smoker [facility] Comment on above: Quit when found out she was Quit when found out she was Start: 08-22-2023 End: 04-12-2024 Sex Assigned At Female [facility] consumption [facility] Start: 1990 Sex Assigned At Not on file [facility] Tobacco smoking status No Smokin g Status Entered [facility] Start: 06-06-2024 Tobacco smoking status Heavy t obacco smoker (finding) [facility] Tobacco smoking status Never [facility] Start: 07-06-2023 End: 04-12-2024 Tobacco smoking status NHIS Smokes tobacco daily [facility] History of tobacco use Cigarette Smoker P [facility] Start: 07-06-2023 End: 04-12-2024 Tobacco use and exposure Smokeless tobacco non-user [facility] Start: 10-31-2023 End: 04-12-2024 Alcoholic beverage intake Lifetime non-drinker (finding) [facility] Start: 08-22-2023 End: 04-12-2024 History of Social function [facility] Start: 1990 Sex assigned at Female [facility] Start: 06-25-2024 Gender identity Identifies as female gender (finding) [facility] Work Phone: Start: 06-22-2024 End: 07-02-2024 Exposure to SARS-CoV-2 (event) Not sure [facility] How often to you hav e a drink containing alcohol? Never [facility] Medical Equipment Procedure Code Equipment Code Equipment Origin al Text Equipment Identifier Dates Spacer Spnl 16x2 1mm Terrence 7d 14mm Pk Corpectomy Sys Ns Lf 3.5/3.5deg For Corpectomy Terrence - [id number] Start: 07-08-2023 Plate Bn 28mm 2 Lvl Xtend Spne Crv Ant Ns - [id number] Start: 07-08-2023 Screw Bn 16mm 4. 2mm Slf Drl Va Spne Xtend Ns - [id number] Start: 07-08-2023 Goals Date Patient Goal Desired Activity /State Personal health goal Comment on above: Formatting of this n ote might be different from the original. Evaluation of progress towards goal: Home with , self care Functional Status Date Assessment Result Facility 06-06-2024 Functional Status N/A [facility] [place] 04-01-2022 Functional Status N/A [facility] Clinical Notes 04-01-2022 to 08-21-2024 Kev Whittington, - 08/21/2024 3:15 PM Reji Bo MA - 07/30/2024 9:00 AM LISA Gore - 07/25/2024 9:00 AM Pita Whittington DO - 07/11/2024 9:00 AM ESTPatient Instructions Note Date & Type Note Facility 12-17-2024 History of Present illness Narrative Images from the original note were not included. Chief Complaint Patient presents with cervical myelopathy Subjective Lavinia Lee, 34 y.o., female here for follow up. HPI The patient is here post EMG. She states that her MRI of her brain is scheduled for 09/03 at [facility]. She completed physical therapy and she states that this did not help with her balance or her pain. She states that she went to sit down the other day and felt an electric shock sensation from her head down to her feet. She had increased pain mostly on the right side. She states that she felt like she couldn't move her body after this and felt frozen. She was unable to make her feet move. Her carried her into the bedroom. These symptoms lasted for about 5 hours. She states that she was in pain all night. She still has burning down both of her arms. She c/o weakness in her arms and hands and drops things. She states that her neck feels swollen and inflamed. She has pain that shoots from her right hand up into her neck. She states that her toes will go numb. She states that her hands and feet are cold most of the time. She states that the symptoms are starting to affect her on the left side also. She was seen by Dr Cruzito Lombardiitis pain management on 08/06 and after she had swelling in her arms and increased pain in her head, neck, and back. She had bilat cervical epidural injections. Dr Boyd just put her on an antiinflammatory medication, but she is not sure what it was she has not gotten it yet from the pharm. She is doing some exercises for about 30 minutes 4 days a week. No loss of control of bowel or bladder. Past Medical History: Diagnosis Date CTS (carpal tunnel syndrome) Headache Headache, tension-type Migraine (CMS/HCC) Numbness Past Surgical History: Procedure Laterality Date ANTERIOR CERVICAL DISCECTOMY W/ FUSION -2022 CARPAL TUNNEL RELEASE Bilateral 05/27/2022 Dr. Tenzin Kamara CERVICAL FUSION SECTION, CLASSIC 06/12/2014 [facility] SECTION, CLASSIC 04/15/2020 [facility] SPINAL FUSION 07/2023 No family history on [...] Neurologic: No new headaches or dizziness Vitals: 08/21/24 1519 BP: (!) 156/92 Pulse: 94 SpO2: 97% Body mass index is 27.8 kg/m . Neurologic exam: General: Normal body habitus, cooperative, [...] Motor: RUE 4/5 with give-way weakness LUE 5-/5 RLE 4/[address] weakness LLE 5/5 Tone: Physiologic, no tremor, bradykinesia or rigidity DTR: Bilateral Biceps 2/4 Bilateral BR 2/4 Bilateral Patellar 2/4 No spasticity or clonus Gait: Limps with the RLE and is reluctant to put pressure on the leg Romberg's Negative Review and summary of old records: Assessment/Plan Diagnoses and all orders for this visit: Cervical myelopathy (CMS/HCC) - gabapentin (Neurontin) 300 MG capsule; Take 1 capsule (300 mg) by mouth in the morning and 1 capsule (300 mg) in the evening and 1 capsule (300 mg) before bedtime. Weakness Cervical radiculopathy Numbness and tingling Neuropathic pain Other chronic pain 34-year-old complicated female. Patient started to have falls in April of 2023 and was found to, what looks like, have cervical cord compression in May of 2023. She was taken to surgery. This area was decompressed. Unfortunately she does have myelomalacia from C5-C7. His permanent spinal cord damage unfortunately. I suspect this is causing much of her symptoms. We did repeat her EMG to be sure there was nothing else new going on. It showed the chronic C8 radiculopathy that was seen previously in bilateral upper extremity and bilateral lower extremity was normal. Unfortunately there is no way to fix the spinal cord damage. She needs to keep up with her exercises for strengthening. 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 We will go ahead and continue the Zanaflex for now but we can consider switching that to baclofen. We will go ahead workup on the gabapentin to 300 mg 3 times a day and see if that helps with some of this neuropathic pain she is having. I am not convinced pain medicine such as opioids would be beneficial and that would be up to pain management. She can continue with seeing pain management whenever they have to offer but unfortunately I think much of it is the spinal cord changes. She continues to have numbness and tingling more on [...] narrowing but no further cord compression. She has not had her brain MRI just yet but it is scheduled for later in the month. We are trying to rule out demyelinating disease that could be complicating her picture. Physical therapy was not all that helpful but I do not expect it to be acutely. 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 All questions were answered and they agreed with the treatment plan. Patient will call if there are any new issues or questions. Pt has been fully educated on their diagnosis, treatment options, and follow up plan Return to clinic: 3 weeks documented in this encounter [facility] 07-30-2024 History of Present illness Narrative Images from the original note were not included. Reason for Appointment: EMG Patient: Lavinia Lee : 1990 EMG Computer: [employer] 3 Referring Physician: Dr. Kev Whittington EMG: SELENE nursing professor: Shanna Bo CMA Office Location: [facility] Reason for EMG: c/o burning, wrists to the neck. R>L. Hx of CTS release, Hx of neck surgery. No hx of DM, not taking blood thinners. Comments: Procedure explained to the patient who expressed understanding. documented in this encounter [facility] 07-25-2024 History of Present illness Narrative Images from the original note were not included. Reason for Appointment: EMG Patient: Lavinia Lee : 1990 EMG Computer: [employer] 2 Referring Physician: Dr. Kev Whittington EMG: ELVIRA nursing professor: Alin Marrero RT(R) Office Location: [place] Reason for EMG: c/o numbness/tingling in toes on bilateral feet R>L, low back pain. No hx of DM. Not on blood thinners. Comments: Procedure was explained to the patient & male director day care center who expressed understanding. Patient appeared to have tolerated the test well despite some discomfort due to the nature of the test. documented in this encounter [facility] 07-11-2024 History of Present illness Narrative Images from the original note were not included. Chief Complaint Patient presents with Numbness Neck Pain Subjective Lavinia Lee, 34 y.o., female being seen in [...] surgery in July 2023. Dr. Cruz at [facility] did the surgery. The patient states that [...] Laterality Date ANTERIOR CERVICAL DISCECTOMY W/ FUSION -2022 CARPAL TUNNEL RELEASE Bilateral 05/27/2022 Dr. Tenzin Kamara CERVICAL FUSION SECTION, CLASSIC 06/12/2014 [facility] SECTION, CLASSIC 04/15/2020 [facility] SPINAL FUSION 07/2023 No family history on [...] clinic: 3 weeks documented in this encounter [facility] 07-02-2024 History of Present illness Narrative 34-year-old female with chronic neck and lower back pain. She was referred for persistent symptoms. About a year ago she underwent C6 corpectomy in [place] for spinal cord compression. Her symptoms before [...] Insecurity: No Food Insecurity (08/22/2023) Received from [facility] Hunger Screening Within the past 12 months [...] Not on file Tory Van MD Director, [facility] [place] [employer]oe Unit Worker Department of Orthopaedic Surgery [facility] [address] [place] [address] documented in this encounter [facility] Work Phone: 06-07-2024 Telephone encounter Note [...] with what the next step would be... [facility] 06-07-2024 Miscellaneous Notes MTP B/L hand [...] step would be... documented in this encounter [facility] 06-06-2024 Note General Surgery Offi ce/Clinic [...] tunnel release, Ce (more content not included)... [facility] Comment on above: Result Comment: Elec tronically Signed By: FOX SIERRA, Tenzin Herrera.saurav\Date and Time Signed: 06/06/24 15:47 EDT 10-31-2023 History of Present illness Narrative Images from the original note were not included. [facility] [address] [place] [address], [place] [address] * CHART NOTE ? 10/31/2023 Patient: Lavinia Buchanan 1990 [id number] Physician: Igor Richard, ARMATURE BALANCER CHIEF COMPLAINT Follow up, cervical. HISTORY OF PRESENT ILLNESS 33-year-old female presents for a follow-up status post ACDF on 07/08/2023 to review a recent cervical MRI. At the time of last visit, Lavinia was reporting a constant pain in the right trapezius that radiated up to the neck at times. She also complained of numbness in the right lower arm. She states she has also been having paresthesias in the toes both feet that is intermittent, but is more frequent. Denies loss of sewing machine repairer strength, saddle anesthesia, urinary or bowel dysfunction, weakness, and loss of balance. ALLERGIES Allergies Allergen Reactions Codeine Tyloxapol Amoxicillin Rash MEDICATIONS Current Outpatient Medications: acetaminophen (TYLENOL EXTRA STRENGTH) 500 mg tablet, Take 2 tablets (1,000 mg total) by mouth every 6 (six) hours as needed for pain., Disp: , Rfl: cyclobenzaprine (FLEXERIL) 10 mg tablet, , Disp: , Rfl: methocarbamoL (ROBAXIN) 750 mg tablet, TAKE 1 TABLET BY MOUTH EVERY 8 HOURS NEEDED FOR PAIN, Disp: , Rfl: phentermine (ADIPEX-P) 37.5 mg tablet, Take 1 tablet (37.5 mg total) by mouth every morning before breakfast., Disp: , Rfl: metoprolol tartrate (LOPRESSOR) 50 mg tablet, TAKE 1 TABLET BY MOUTH TWICE A DAY WITH FOOD FOR 30 DAYS (Patient not taking: Reported on 10/06/2023), Disp: , Rfl: naloxone (NARCAN) 4 mg/actuation spray,non-aerosol nasal spray, Administer 1 spray (4 mg total) into alternating nostrils as needed for opioid reversal. (Patient not taking: Reported on 08/22/2023), Disp: 1 each, Rfl: 0 VITAL SIGNS Ht 160 cm (5' 3 ) Wt 74.8 kg (165 lb) BMI 29.23 kg/m PHYSICAL EXAMINATION Neurologic Exam Mental Status Oriented to person, place, and time. Level of consciousness: alert Knowledge: good. Motor Exam Muscle bulk: normal Strength Right neck flexion: 4/5 Left neck flexion: 4/5 Right neck extension: 4/5 Left neck extension: 4/5 Right deltoid: 4/5 Left deltoid: 4/5 Right biceps: 4/5 Left biceps: 4/5 Right triceps: 4/5 Left triceps: 4/5 Right wrist flexion: 4/5 Left wrist flexion: 4/5 Right wrist extension: 4/5 Left wrist extension: 4/5 Right interossei: 4/5 Left interossei: 4/5 Right abdominals: 4/5 Left abdominals: 4/5 Right iliopsoas: 4/5 Left iliopsoas: 4/5 Right quadriceps: 4/5 Left quadriceps: 4/5 Right hamstrin/5 Left hamstrin/5 Right glutei: 4/5 Left glutei: 4/5 Right anterior tibial: 4/5 Left anterior tibial: 4/5 Right posterior tibial: 4/5 Left posterior tibial: 4/5 Right peroneal: 4/5 Left peroneal: 4/5 Right gastroc: 4/5 Left gastroc: 4/5 Sensory Exam Right arm light touch: normal Left arm light touch: normal Right leg light touch: decreased in lateral thigh. Left leg light touch: decreased in lateral thigh. Gait, Coordination, and Reflexes Reflexes Right brachioradialis: 2+ Left brachioradialis: 2+ Right biceps: 2+ Left biceps: 2+ Right triceps: 2+ Left triceps: 2+ Right patellar: 3+ Left patellar: 2+ Right achilles: 2+ Left achilles: 2+ Right sewing machine repairer: 2+ Left sewing machine repairer: 2+ Right Rai: absent Left Rai: absent Right ankle clonus: absent Left ankle clonus: absent Mildly antalgic gait without assistive device. MRI / IMAGES Cervical MRI without contrast. 10/21/2023 Narrative & Impression EXAM: MR CERVICAL SPINE WO CONT INDICATION: [...] and C6-C7. Myelomalacia from C5 to C7. IMPRESSION / PLAN 33-year-old female presents for a follow-up status post ACDF on 07/08/2023 to review a recent cervical MRI. At the time of last visit, Lavinia was reporting a constant pain in the right trapezius that radiated up to the neck at times. She also complained of numbness in the right lower arm. She states she has also been having paresthesias in the toes both feet that is intermittent, but is more frequent. PLAN: Refer to Pain Management to evaluate and treat for right neck and shoulder pain. Asking for right C5 and C6 TFESI. Patient wants to be referred to [facility]. Consider referral to Neurology for paresthesias in the toes of the bilateral feet that is not explained by lumbar MRI. Follow up with Dr. Velasquez after injection. Electronically Signed By: Igor Richard CNP This note was created with the assistance of a speech recognition program with the goal of generating a timely record of the patient encounter. Inadvertent computerized executive meeting manager errors related to syntax, spelling, homophones, and/or inaudibility may be present. TERESA Moy 10/31/23 1003 documented in this encounter [facility] 10-25-2023 Miscellaneous Notes Lavinia calls into the office asking for MRI results. Patient was informed that Igor Richard CNP has reviewed results and stated, Patient scheduled for follow up. MRI shows surgical changes and varying degress of foraminal stenosis. Patient was informed of upcoming appointment and patient stated okay. documented in this encounter [facility] 10-25-2023 Telephone encounter Note Lavinia calls into the office asking for MRI results. Patient was informed that Igor Richard CNP has reviewed results and stated, Patient scheduled for follow up. MRI shows surgical changes and varying degress of foraminal stenosis. Patient was informed of upcoming appointment and patient stated okay. [facility] 10-06-2023 History of Present illness Narrative Images from the original note were not included. [facility] [address] [place] [address], [address] [place] [address] * CHART NOTE ? 10/06/2023 Patient: Lavinia Buchanan 1990 [id number] Physician: Madan Velasquez MD CHIEF COMPLAINT Follow up. HISTORY OF PRESENT ILLNESS 33 year old female presents as a follow up S/P ACDF on 07-08-2023. She reports she continues to have a constant pain in the right trapezius area that radiates up into the neck at times. She admits to numbness in the right lower arm and in the last four toes of both feet. She states she has weakness in the right knee and is supposed to have surgery, but cannot yet because they advised her she is too weak. Denies any recent trauma. Patient's imaging was discussed and reviewed to their understanding in office today. Patient advised on obtaining imaging studies. Denies loss of sewing machine repairer strength, saddle anesthesia, urinary or bowel dysfunction, weakness, numbness or tingling, radicular symptoms, and loss of balance. Patient does not use an assistive device for ambulation. Patient is not diabetic and 0.5 PPD smoker. No relevant surgical Hx. ALLERGIES Allergies Allergen Reactions Codeine Tyloxapol Amoxicillin Rash MEDICATIONS Current Outpatient Medications: acetaminophen (TYLENOL EXTRA STRENGTH) 500 mg tablet, Take 2 tablets (1,000 mg total) by mouth every 6 (six) hours as needed for pain., Disp: , Rfl: methocarbamoL (ROBAXIN) 750 mg tablet, TAKE 1 TABLET BY MOUTH EVERY 8 HOURS NEEDED FOR PAIN, Disp: , Rfl: metoprolol tartrate (LOPRESSOR) 50 mg tablet, TAKE 1 TABLET BY MOUTH TWICE A DAY WITH FOOD FOR 30 DAYS (Patient not taking: Reported on 10/06/2023), Disp: , Rfl: naloxone (NARCAN) 4 mg/actuation spray,non-aerosol nasal spray, Administer 1 spray (4 mg total) into alternating nostrils as needed for opioid reversal. (Patient not taking: Reported on 08/22/2023), Disp: 1 each, Rfl: 0 VITAL SIGNS Ht 157.5 cm (5' 2 ) Wt 68.9 kg (152 lb) BMI 27.80 kg/m PHYSICAL EXAMINATION Neurologic Exam Mental Status Oriented to person, place, and time. Level of consciousness: alert Knowledge: good. Motor Exam Muscle bulk: normal Overall muscle tone: normal Strength Right neck flexion: 4/5 Left neck flexion: 4/5 Right neck extension: 4/5 Left neck extension: 4/5 Right deltoid: 4/5 Left deltoid: 4/5 Right biceps: 4/5 Left biceps: 4/5 Right triceps: 4/5 Left triceps: 4/5 Right wrist flexion: 4/5 Left wrist flexion: 4/5 Right wrist extension: 4/5 Left wrist extension: 4/5 Right interossei: 4/5 Left interossei: 4/5 Right abdominals: 4/5 Left abdominals: 4/5 Right iliopsoas: 4/5 Left iliopsoas: 4/5 Right quadriceps: 4/5 Left quadriceps: 4/5 Right hamstrin/5 Left hamstrin/5 Right glutei: 4/5 Left glutei: 4/5 Right anterior tibial: 4/5 Left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
== END 2024-12-05 08:46 | disposition home or self-care (01) ==
LOC: CT 08:45
PROVIDERS: PCP Family Medicine; Visit Provider Family Medicine
DX: I26.99 Other pulmonary embolism without acute cor pulmonale (principal)
CPT/HCPCS: 71275; Q9967

== ENCOUNTER 2024-12-31 12:51 | Emergency (ER) | payer SELFPAY ==
[2024-12-31] VITALS (13 sets, daily range): BP systolic 134–141; BP diastolic 73–100; PULSE 72–105; TEMP 37.2; O2SAT 98–100; BMI 24.0
--- NOTE | 2024-12-31 13:21 | ECG_ITS ---
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 Measurements Intervals [place] Rate: 79 P: 62 ME: 122 QRS: 77 QRSD: 98 T: 45 QT: 364 QTc: 399 Interpretive Statements 1100 Sinus rhythm 1102 Sinus arrhythmia 9110 normal ECG Compared with the ECG of 01-21-2021 18:03, No significant changes Electronically Signed On 12-31-2024 16:11:49 EDT by THERESE NIEVES M.D.
[2024-12-31 13:28] LABS: Basophils Absolute Auto 0.1 10^3/uL (0.0-0.1); Basophils Percent Auto 0.5 % (0.2-2.0); Eosinophils Absolute Auto 0.2 10^3/uL (0.0-0.7); Eosinophils Percent Auto 1.9 % (0.9-7.0); Hematocrit 41.2 % (36.0-48.0); Hemoglobin 14.1 g/dL (12.0-16.0); Immature Granulocytes Abs Auto 0.03 10^3/uL (0.00-0.03); Immature Granulocytes Pct Auto 0.3 % (0.0-0.5); Lymphocytes Absolute Auto 2.3 10^3/uL (1.2-3.8); Lymphocytes Percent Auto 23.9 % (20.5-60.0); Mean Corpuscular HGB Conc 34.2 g/dL (29.9-35.2); Mean Corpuscular Hemoglobin 31.9 pg (26.7-34.0); Mean Corpuscular Volume 93.2 fL (81.0-99.0); Monocytes Absolute Auto 0.8 10^3/uL (0.3-0.8); Monocytes Percent Auto 7.6 % (1.7-12.0); Neutrophils Absolute Auto 6.5 10^3/uL (1.4-6.5); Neutrophils Percent Auto 65.8 % (43.0-75.0); Platelet Count 214 10^3/uL (150-450); Red Blood Count 4.42 10^6/uL (4.20-5.40); Red Cell Distribution Width 11.9 % (11.0-15.0); White Blood Count 9.8 10^3/uL (4.0-11.0)
--- NOTE | 2024-12-31 13:31 | ED.CHESTPAI1 ---
HPI - Chest Pain General Chief Complaint: Chest Pain Stated Complaint: CHEST PAIN Time Seen by Provider: 12/31/24 13:07 Source: patient Mode of arrival: walk-in Limitations: no limitations History of Present Illness HPI narrative: Patient coming to us with a right sided chest wall pain mostly posterior aspect and in the armpit, he mentioned that this pain started 2 weeks ago all of a sudden with no fall or any injury that she required, the patient is having pain every time she moves her right upper extremity as well Mentioned that she has been taking her tizanidine at home it is making her sleepy and not helping her pain Related Data Previous Rx's ?Medication ?Instructions ?Recorded diclofenac sodium 50 mg 50 mg PO Q12H PRN pain #14 tabs 12/31/24 tablet,delayed release orphenadrine citrate 100 mg 100 mg PO ONCE PRN muscle spasm 10 12/31/24 tablet,extended release days #10 tabs Allergies Allergy/AdvReac Type Severity Reaction Status Date / Time atropine Allergy Severe Confusion Verified 12/31/24 12:58 fentanyl Allergy Severe CONFUSION Verified 12/31/24 12:58 midazolam (From Versed) Allergy Severe Confusion Verified 12/31/24 12:58 propofol Allergy Severe Confusion Verified 12/31/24 12:58 amoxicillin Allergy Unknown Unknown Verified 12/31/24 12:58 codeine Allergy Unknown Unknown Verified 12/31/24 12:58 Review of Systems ROS Status of ROS 10 or more systems reviewed and unremarkable except as noted in history and below [facility] Medical History (Updated 12/31/24 @ 15:34 by Olivia Alvarez MD) Neck problem ?R68.89 - Other general symptoms and signs (ICD-10) Smoker ?F17.200 - Nicotine dependence, unspecified, uncomplicated (ICD-10) Cervical vertebral fusion ?M43.22 - Fusion of spine, cervical region (ICD-10) Carpal tunnel syndrome ?G56.00 - Carpal tunnel syndrome, unspecified upper limb (ICD-10) Surgical History H/O cervical spine surgery ?Z98.890 - Other specified postprocedural states (ICD-10) H/O section ?Z98.891 - History of uterine scar from previous surgery (ICD-10) History of carpal tunnel release ?Z98.890 - Other specified postprocedural states (ICD-10) Social History Smoking status: Current every day smoker Little interest or pleasure in doing things: not at all Feeling down, depressed, or hopeless: not at all Exam Narrative Exam Narrative: Nurses notes and vital signs reviewed and patient is not hypoxic. General: Well-appearing and in no apparent distress. Skin: Warm, dry, no pallor noted. No rash. Head: Normocephalic, atraumatic. Neck: Supple, non-tender. Eye: Pupils are equal, round and EOMI. No scleral icterus. Ears, Nose, Mouth, and Throat: TM are clear, no nasal mucosal hypertrophy. Oral mucosa is moist, no posterior oropharynx erythema, uvula is mid-line Cardiovascular: Regular Rate and Rhythm without murmur, gallop or rub. Respiratory: No accessory muscle use or respiratory distress. Lungs are clear to auscultation, no wheezing, rales or rhonchi Chest Wall: Tenderness upon palpation of the posterior aspect of the right sided chest wall toward the scapula and medially Back: No midline thoracic or lumbar vertebral tenderness. No CVA tenderness Musculoskeletal: normal ROM, no calf or popliteal tenderness, no lower extremity edema/swelling GI: Abdomen is soft, non-distended. Normal bowel sounds. No masses appreciated. No tenderness to palpation. No rebound, guarding, or rigidity noted. Neurological: A&O x4. No cranial nerve dysfunction observed. No truncal ataxia. Moves all extremities. Sensation intact. Psychiatric: Cooperative and interactive. Normal mood and affect. Constitutional Vital Signs, click to edit/add: Last Vital Signs Temp 98.9 F 12/31/24 12:59 Pulse 105 H 12/31/24 15:20 Resp 14 12/31/24 15:20 BP 134/73 12/31/24 15:01 Pulse Ox 99 12/31/24 15:20 O2 Del Method Room Air 12/31/24 13:20 Course Vital Signs Vital signs: Vital Signs Temperature 98.9 F 12/31/24 12:59 Pulse Rate 83 12/31/24 12:59 Respiratory Rate 16 12/31/24 12:59 Blood Pressure 141/100 H 12/31/24 12:59 Pulse Oximetry 100 12/31/24 12:59 Oxygen Delivery Method Room Air 12/31/24 12:59 Temperature 98.9 F 12/31/24 12:59 Pulse Rate 105 H 12/31/24 15:20 Respiratory Rate 14 12/31/24 15:20 Blood Pressure 134/73 12/31/24 15:01 Pulse Oximetry 99 12/31/24 15:20 Oxygen Delivery Method Room Air 12/31/24 13:20 MDM - Chest Pain MDM Narrative Medical decision making narrative: The patient EKG showing sinus rhythm with a heart rate of [address] elevation or depression CBC and chemistry showed no acute significant pathology test is negative Patient D-dimer was elevated She was treated in the ER with Toradol initially then tramadol and Voltaren after the CAT scan of the chest showed no PE Patient presentation mostly secondary to to musculoskeletal chest wall pain Tizanidine was stopped and the patient was started on Norflex The patient is to follow up with primary care physician in next 2-3 days or to return to the emergency department should any of the signs or symptoms worsen or new symptoms develop. The patient agrees with the following Diagnosis and Treatment plan and the patient will be discharged home. Lab Data Labs: Lab Results 12/31/24 Range/Units 13:05 WBC 9.8 (4.0-11.0) 10^3/uL RBC 4.42 (4.20-5.40) 10^6/uL Hgb 14.1 (12.0-16.0) g/dL Hct 41.2 (36.0-48.0) % MCV 93.2 (81.0-99.0) fL MCH 31.9 (26.7-34.0) pg MCHC 34.2 (29.9-35.2) g/dL RDW 11.9 (11.0-15.0) % Plt Count 214 (150-450) 10^3/uL MPV 11.0 (9.5-13.5) fL Neut % (Auto) 65.8 (43.0-75.0) % Lymph % (Auto) 23.9 (20.5-60.0) % [place] % (Auto) 7.6 (1.7-12.0) % Eos % (Auto) 1.9 (0.9-7.0) % Baso % (Auto) 0.5 (0.2-2.0) % Neut # (Auto) 6.5 (1.4-6.5) 10^3/uL Lymph # (Auto) 2.3 (1.2-3.8) 10^3/uL [place] # (Auto) 0.8 (0.3-0.8) 10^3/uL Eos # (Auto) 0.2 (0.0-0.7) 10^3/uL Baso # (Auto) 0.1 (0.0-0.1) 10^3/uL Abs Immat Gran (auto) 0.03 (0.00-0.03) 10^3/uL Imm/Tot Granulo (auto) 0.3 (0.0-0.5) % D-Dimer 0.94 H* (<=0.59) mg/L FEU Sodium 141 (136-145) mmol/L Potassium 3.4 L (3.5-5.1) mmol/L Chloride 104 (98-107) mmol/L Carbon Dioxide 26.9 (21.0-32.0) mmol/L Anion Gap 13.5 BUN 5.0 L (7.0-18.0) mg/dL Creatinine 0.75 (0.55-1.02) mg/dL Est GFR ( Amer) >60 (>=60 mL/min/1.73m^2) Est GFR (Non-Af Amer) >60 (>=60 mL/min/1.73m^2) BUN/Creatinine Ratio 6.7 Glucose 90 (74-106) mg/dL Calcium 8.8 (8.5-10.1) mg/dL Total Bilirubin 0.5 (0.2-1.0) mg/dL AST 12 L (15-37) U/L ALT 23 (14-59) U/L Alkaline Phosphatase 60 (46-116) U/L Troponin I High Sens <4.0 L (4.0-51.3) pg/mL Total Protein 6.8 (6.4-8.2) g/dL Albumin 3.7 (3.4-5.0) g/dL Globulin 3.1 g/dL Albumin/Globulin Ratio 1.2 Serum HCG, Qual Negative (NEGATIVE) Discharge Plan Discharge Chief Complaint: Chest Pain Clinical Impression: Chest wall pain Patient Disposition: Home, Self-Care Time of Disposition Decision: 15:34 Condition: Good Prescriptions / Home Meds: New diclofenac sodium 50 mg tablet,delayed release (DR/EC) 50 mg PO Q12H PRN (Reason: pain) Qty: 14 0RF orphenadrine citrate 100 mg tablet extended release 100 mg PO ONCE PRN (Reason: muscle spasm) 10 Days Qty: 10 0RF Discontinued tizanidine 4 mg tablet Print Language: Beninese Instructions: Chest Wall Pain (ED) Referrals: Sven Boyd MD [Primary Care Provider] - 1 week Discharge Date/Time: 12/31/24 15:44
[2024-12-31 13:42] LABS: HCG Qualitative NEGATIVE (NEGATIVE); Internal Control Within Normal Limits
[2024-12-31] MEDS: KETOROLAC TROMETHAMINE 30 MG/ML VIAL IM (13:42)
[2024-12-31 13:49] LABS: Alanine Aminotransferase 23 U/L (14-59); Albumin Globulin Ratio 1.2; Albumin Level 3.7 g/dL (3.4-5.0); Alkaline Phosphatase 60 U/L (46-116); Anion Gap 13.5; Aspartate Amino Transferase 12 U/L (15-37); BUN Creatinine Ratio 6.7; Bilirubin Total 0.5 mg/dL (0.2-1.0); Calcium 8.8 mg/dL (8.5-10.1); Carbon Dioxide 26.9 mmol/L (21.0-32.0); Chloride 104 mmol/L (98-107); Estimated GFR (African America >60 (>=60 mL/min/1.73m^2); Estimated GFR (Non-African Ame >60 (>=60 mL/min/1.73m^2); Globulin 3.1 g/dL; Glucose 90 mg/dL (74-106); Potassium 3.4 mmol/L (3.5-5.1); Sodium 141 mmol/L (136-145); Total Protein 6.8 g/dL (6.4-8.2); Troponin I High Sensitivity <4.0 pg/mL (4.0-51.3)
[2024-12-31 13:58] LABS: D Dimer 0.94 mg/L FEU (<=0.59)
[2024-12-31] MEDS: TRAMADOL HCL 50 MG TABLET PO (15:40)
== END 2024-12-31 15:44 | disposition home or self-care (01) ==
PROVIDERS: Emergency Provider Emergency Medicine; PCP Family Medicine
DX: R07.89 Other chest pain (principal); F17.200 Nicotine dependence, unspecified, uncomplicated
CPT/HCPCS: 36415; 71275; 80053; 84484; 84703; 85025; 85378; 93005; 96372; 99285; J1885; Q9967

== ENCOUNTER 2025-07-02 08:21 | Outpatient (OUT) | payer OTHER, SELFPAY | END 2025-07-02 08:22 | disposition home or self-care (01) | LOC: LAB 08:24 | PROVIDERS: PCP Family Medicine; Visit Provider Family Medicine | DX: N92.6 Irregular menstruation, unspecified (principal) | CPT/HCPCS: 36415; 84702 ==

== ENCOUNTER 2025-07-02 09:47 | Outpatient (OUT) | payer OTHER, SELFPAY ==
--- OUTSIDE RECORDS SUMMARY | 2025-07-02 09:52 | XMS_ITS | Clinical Summary ---
Author Organization [facility] Address [address] [place] [address] Care Team Providers Care Supervisor Blood Donor Recruiters Name Role Phone Sven Boyd MD Primary Care Provider [phone] Devora Clayton MD Unavailable [phone] Halley De Leon DO Unavailable [phone] Allergies Active AllergyReactionsCriticalityNoted DjgrVexjuevsEdxgksznqda32/11/2023odeine 05/16/20238025Bvwshumzx14/11/2023 Medications MedicationSigDispense QuantityRefillsLast FilledStart DateEnd DateStatus ibuprofen 800 MG tablet Take 800 mg by mouth every 8 (eight) hours if needed.05/12/2023ctive acetaminophen (Tylenol) 500 MG tablet Take 1,000 mg by mouth every 6 (six) hours if qpnase6707/10/2023ctive Adipex-P 37.5 MG tablet 1 (one) time each day at the same time03/22/2024ctive tiZANidine (Zanaflex) 4 MG capsule Take 4 mg by mouth in the morning and 4 mg in the evening and 4 mg before bedtime.Active gabapentin (Neurontin) 300 MG capsule Indications:Cervical myelopathy (HCC)Take 1 capsule (300 mg) by mouth in the morning and 1 capsule (300 mg) in the evening and 1 capsule(300 mg) before bedtime. 90 capsule 5Active Active Problems No known active problems Social History Tobacco UseTypesPacks/DayYears UsedDateSmoking Tobacco: Every DayCigarettes0.55 Smokeless Tobacco: Never Tobacco Cessation:Ready to Q uit: Not Asked; Counseling Given: Not Answered Alcohol UseStandard Drinks/WeekCommentsNever0 (1 standard drink = 0.6 oz pure alcohol)CommentsUnknownSex and Gender InformationValueDate RecordedSex Assigned at BirthNot on fileLegal YfeJatblz98/15/2023 11:47 PM EDTGender IdentityNot on fileSexual OrientationNot on file Last Filed Vital Signs Vital SignReadingTime TakenCommentsBlood Suulkjmz741/9208/21/2024 3:19 PM EST Mgcvw889708/21/2024 3:19 PM THRIpfeaisvxzp66.7 ??C (98.1 ??F)09/29/2023 1:05 PM ESTRespiratory Rate--Oxygen Qpzoddtgxf89%08/21/2024 3:19 PM ESTInhaled Oxygen Concentration--Fyqwut52.9 kg (152 lb)07/11/2024 9:06 AM EKKSicbqn788.5 cm (5' 2 )08/21/2024 3:19 PM ESTBody Mass Index27.8004/12/2024 2:53 PM EDT Plan of Treatment Not on file Care Teams Team MemberRelationshipSpecialtyStart DateEnd Sven Boyd MD PCP - GeneralFamily Plwumqpa72/1/24 Devora Clayton MD [address] [place] [address] Referring PhysicianFamily Pljlrchd61/1/24 Halley De Leon DO [address] [place] [address] Referring BqgqvoreiNaxlpxfew88/6/24
--- OUTSIDE RECORDS SUMMARY | 2025-07-02 09:52 | XMS_ITS | Clinical Summary ---
Author Organization [facility] Address [address] [place] [address] Phone Care Team Providers Care Chiropractic Assistant Name Role Phone Unavailable Primary Care Provider Unavailabl e Social History Tobacco UseTypesPacks/DayYears UsedDateSmoking Tobacco: Never Assessed CommentsUnknownSex and Gender InformationValueDate RecordedSex Assigned at Ahhzvr7306/25/2024 11:56 AM EDTLegal AazPccopr83/07/2024 9:00 AM EDTGender BcpbtddyKnkwez71/21/2024 11:56 AM EDTSexual OrientationNot on file Plan of Treatment Health MaintenanceDue DateLast DoneCommentsHIV Tcugpkjxw1988Lipid Panel 1988Yearly Adult Dgnszdxp1988MMR Vaccines (1 of 1 - Standard series) 1989Hepatitis C Izajcrulv85/18/2006Hepatitis B Vaccines (1 of 3 - 19+ 3- dose series)2007Cervical Cancer Ggrfarczl30/18/2009HPV/Ojcwmz3705/23/2009Pap Smear2009HPV Vaccines (1 - 3-dose standard series)2015DTaP/Tdap/Td Vaccines (2 - Td or Tdap)Influenza Vaccine (#1)2025 06/13/2020COVID-19 Vaccine ( - 2024- season)2025Zoster Vaccines (1 of 2)2038HIB VaccinesAged OutNo longer eligible based on patient's age to complete this topicHepatitis A VaccinesAged OutNo longer eligible based on patient's age to complete this topicIPV VaccinesAged OutNo longer eligible based on patient's age to complete this topicMeningococcal VaccineAged OutNo longer eligible based on patient's age to complete this topicPneumococcal Vaccine: Pediatrics and At-Risk Adult PatientsAged OutNo longer eligible based on patient's age to complete this topicRotavirus VaccinesAged OutNo longer eligible based on patient's age to complete this topic Insurance MemberSubscriberPlan / Payer (Effective 2023-Present)Name:Lavinia Lee Relation to Subscriber:SelfName:Lavinia Lee Payer ID:[id number] (NAIC) Group ID:[id number] Type:Not on file Address: [address] [phone]
--- OUTSIDE RECORDS SUMMARY | 2025-07-02 09:52 | XMS_ITS | Clinical Summary ---
Author Organization [facility] Address [id number] [address] [place] [address] Care Team Providers Care Classer Name Role Phone Sven Boyd MD Primary Care Provider [phone] Allergies Active AllergyReactionsCriticalityNoted DbwaWyazqqplVfgcmoqhgciZsalCpl74/01/2023 Vizhuje8507/06/20239611Xuvwgfepl48/11/2023 Medications MedicationSigDispense QuantityRefillsLast FilledStart DateEnd DateStatus metoprolol tartrate (LOPRESSOR) 50 mg tablet TAKE 1 TABLET BY MOUTH TWICE A DAY WITH FOOD FOR 30 DAYS08/02/2023ctive methocarbamoL (ROBAXIN) 750 mg tablet TAKE 1 TABLET BY MOUTH EVERY 8 HOURS NEEDED FOR PAIN08/09/2023ctive acetaminophen (TYLENOL EXTRA STRENGTH) 500 mg tablet Take 2 tablets (1,000 mg total) by mouth every 6 (six) hours as needed for pain. 07/10/2023ctive naloxone (NARCAN) 4 mg/actuation spray,non-aerosol nasal spray Administer 1 spray (4 mg total) into alternating nostrils as needed for opioid reversal. 1 each 07/10/2023ctive Additional Information Patient not taking.Reported on 08/22/2023 phentermine (ADIPEX-P) 37.5 mg tablet Take 1 tablet (37.5 mg total) by mouth every morning before breakfast.Active cyclobenzaprine (FLEXERIL) 10 mg tablet 08/17/2023ctive Active Problems ProblemNoted DateDiagnosed DateSpinal stenosis, unspecified spinal region 07/06/2023 Immunizations ImmunizationAdministration DatesNext DueInfluenza, Injectable, Mdck, Preservative Free, Quad06/13/2020Tdap1 Social History Tobacco UseTypesPacks/DayYears UsedDateSmoking Tobacco: Every DayCigarettes Smokeless Tobacco: Never Tobacco Cessation:Ready to Q uit: Not Asked; Counseling Given: Not Answered Alcohol UseStandard Drinks/WeekCommentsNever0 (1 standard drink = 0.6 oz pure alcohol)AUDIT-CAnswerDate RecordedQ1: How often do you have a drink containing alcohol?Never07/07/2023Q2: How many drinks containing alcohol do you have on a typical day when you are drinking?Patient does not drink07/07/2023Q3: How often do you have six or more drinks on one occasion?Never07/07/2023HQ-2AnswerDate RecordedTotal Qqhum65409/06/2022hildcareAnswerDate RecordedChildcareUnknown 02/12/2019EmploymentAnswerDate PsrhvdonXmgigfbzznKdvcboo01/10/2019Hunger ScreeningAnswerDate RecordedWithin the past 12 months we worried whether our food would run out before we got money to buy more.Never True08/22/2023Within the past 12 months the food we bought just didn't last and we didn't have money to get more.Never True08/22/2023CommentsUnknownSex and Gender InformationValueDate RecordedSex Assigned at BirthNot on fileLegal SexFemale 04/08/2015 12:15 PM EDTGender IdentityNot on fileSexual OrientationNot on file Last Filed Vital Signs Vital SignReadingTime TakenCommentsBlood Psciykhp143/8808/22/2023 10:47 AM EST Tlpye189508/22/2023 10:47 AM OEHTukbnoqxfxz06.9 ??C (98.4 ??F)07/10/2023 8:00 AM ESTRespiratory Zmpx715009/09/2022 8:00 AM ESTOxygen Ievacagqjq61%07/10/2023 12:00 AM EDTInhaled Oxygen Concentration--Oulqjo90.6 kg (160 lb)09/03/2024 6:26 AM EST Anvfzl479 cm (5' 3 )10/31/2023 8:25 AM ESTBody Mass Index28.34010/31/2023 8:25 AM EST Plan of Treatment Health MaintenanceDue DateLast DoneCommentsPap Smear2009DTaP,Tdap and Td Vaccines (3 - Td or Tdap), 09/22/2011Depression Screening Tobacco Jlsfcpngz73Influenza Vaccine Adult BMI Treebwpdh36 Goals GoalPatient Goal TypeAssociated ProblemsRecent ProgressPatient-Stated?Author <enter goal here> Lavinia Ann, TRACK SUPERINTENDENT Note: Evaluation of progress towards goal: Home with , self care Medical Devices ImplantedTypeAreaManufacturerDevice IdentifierShelf Expiration DateModel / Serial / LotGraft Bn Cllr Bn Mtrx Sm 1cc Vivigen Frmbl Rpl [id number] Rpl Special [id number] - [id number] - [id number] Implanted:Qty: 1 on 07/08/2023 by [facility] ImplantN/A: Spine [id number]//[id number] / [id number] / Spacer Spnl 23g92og Terrence 7d 14mm Pk Corpectomy Sys Ns Lf 3.5/3.5deg For Corpectomy Terrence - [id number] Implanted:Qty: 1 on 07/08/2023 by [facility]Other ImplantN/A: Spine HrbeniufEtipvn916.521 / / Plate Bn 28mm 2 Lvl Xtend Spne Crv Ant Ns - [id number] Implanted:Qty: 1 on 07/08/2023 by [facility]PlateN/A: Spine YctfukesJnjrsc917.228 / / Screw Bn 16mm 4.2mm Slf Drl Va Spne Xtend Ns - [id number] Implanted:Qty: 4 on 07/08/2023 by [facility]N/A: Spine FpjonyaeDomjou300.016 / / Insurance * Guarantor: Lavinia Buchanan AAccount TypeRelation to PatientDate of BirthPhone Billing AddressPersonal/WjesrxFegj[address] [place] [phone] Advance Directives * Full Code (Latest Code Status on File) Date ActivatedDate ZjgjjteiodpSlgrhxub81/2/2023 7:26 AM07/10/2023 12:47 PM Care Teams Team MemberRelationshipSpecialtyStart DateEnd Date Sven Boyd MD PCP - GeneralFamily Vjywjvsu81/2/23
--- OUTSIDE RECORDS SUMMARY | 2025-07-02 09:52 | XMS_ITS | Clinical Summary ---
Author Organization [facility] Address [address], [address] [place] [address] Care Team Providers Care Scratch Finisher Name Role Phone Sven Boyd MD Primary Care Provider [phone] Allergies Active AllergyReactionsCriticalityNoted MemzMrtsikqyTdsgxnlkfer22/11/2023odeine 05/16/20238296Tcycmxqnt31/11/2023 Medications MedicationSigDispense QuantityRefillsLast FilledStart DateEnd DateStatus naproxen (NAPROSYN) 500 MG tablet Take 1 tablet by mouth 2 times daily (with meals) for 5 days 10 tablet 06/17/2023ctive Social History Tobacco UseTypesPacks/DayYears UsedDateSmoking Tobacco: Every DayCigarettes Smokeless Tobacco: Never Tobacco Cessation:Ready to Q uit: Not Asked; Counseling Given: Not Answered Alcohol UseStandard Drinks/WeekCommentsNot Currently0 (1 standard drink = 0.6 oz pure alcohol)Interpersonal Safety Domain Source: IP Abuse ScreeningAnswerDate RecordedRead-Only, Retired: Physical QklqkYdcfkp22/13/2023Read-Only, Retired: Verbal AwqozTwjggt48/13/2023Read-Only, Retired: Emotional spaanFavcnn45/13/2023 Read-Only, Retired: Financial ZpwtnSozzvg49/13/2023Read-Only, Retired: Sexual qqkfaQqytsz15/13/2023CommentsUnknownSex and Gender InformationValueDate RecordedSex Assigned at BirthNot on fileLegal FnhThhhzh81/13/2023 1:00 PM EDT Gender IdentityNot on fileSexual OrientationNot on file Last Filed Vital Signs Vital SignReadingTime TakenCommentsBlood Hmgsphii842/7206/17/2023 1:10 PM EDT Hgcmw071906/17/2023 1:10 PM UBXDumohjfvoqn55.6 ??C (97.9 ??F)06/17/2023 1:10 PM EDTRespiratory Umqp5373 1:10 PM EDTOxygen Mvinakxvsq96%06/17/2023 1:10 PM EDTInhaled Oxygen Concentration--Vesmlk36.3 kg (155 lb)06/17/2023 1:10 PM EDT Qqkpbq816.5 cm (5' 2 )06/17/2023 1:10 PM EDTBody Mass Index28.351 1:10 PM EDT Plan of Treatment Health MaintenanceDue DateLast DoneCommentsDTaP/Tdap/Td vaccine (2 - Td or Tdap) Flu vaccine (#1)COVID-19 Vaccine ( - season)2025Polio vaccineAged OutNo longer eligible based on patient's age to complete this topic Insurance Care Teams Team MemberRelationshipSpecialtyStart Date Sven Boyd MD [address] [place] [address] PCP - GeneralFamily Guuvdmxl40/13/23
[2025-07-02 11:32] LABS: Hematocrit 43.4 % (36.0-48.0); Hemoglobin 13.9 g/dL (12.0-16.0); Immature Granulocytes Abs Auto 0.05 10^3/uL (0.00-0.03); Immature Granulocytes Pct Auto 0.5 % (0.0-0.5); Lymphocytes Absolute Auto 2.0 10^3/uL (1.2-3.8); Mean Corpuscular HGB Conc 32.0 g/dL (29.9-35.2); Mean Corpuscular Hemoglobin 31.2 pg (26.7-34.0); Mean Corpuscular Volume 97.5 fL (81.0-99.0); Platelet Count 249 10^3/uL (150-450); Red Blood Count 4.45 10^6/uL (4.20-5.40); White Blood Count 9.7 10^3/uL (4.0-11.0)
[2025-07-02 12:48] LABS: Iron 109.0 ug/dL (50.0-170.0)
[2025-07-02 13:52] LABS: Alanine Aminotransferase 69 U/L (14-59); Albumin Globulin Ratio 1.2; Albumin Level 3.8 g/dL (3.4-5.0); Alkaline Phosphatase 62 U/L (46-116); Anion Gap 10.0; Aspartate Amino Transferase 19 U/L (15-37); Blood Urea Nitrogen 7.0 mg/dL (7.0-18.0); Calcium 9.0 mg/dL (8.5-10.1); Carbon Dioxide 29.9 mmol/L (21.0-32.0); Chloride 105 mmol/L (98-107); Cholesterol 184 mg/dL (<=200); Estimated GFR (African America >60 (>=60 mL/min/1.73m^2); Estimated GFR (Non-African Ame >60 (>=60 mL/min/1.73m^2); Free T3 2.39 pg/mL (2.18-3.98); Globulin 3.2 g/dL; Glucose 80 mg/dL (74-106); HDL Cholesterol 60 mg/dL (40-60); Potassium 3.9 mmol/L (3.5-5.1); Sodium 141 mmol/L (136-145); Thyroid Stimulating Hormone 1.498 uIU/mL (0.358-3.740); Total Protein 7.0 g/dL (6.4-8.2); Triglycerides 62 mg/dL (<=150); VLDL CHOLESTEROL 12.4 mg/dL
== END 2025-07-02 09:48 | disposition home or self-care (01) ==
LOC: LAB 09:48
PROVIDERS: PCP Family Medicine; Visit Provider Family Medicine
DX: M62.838 Other muscle spasm (principal); R53.83 Other fatigue; E66.9 Obesity, unspecified; N92.6 Irregular menstruation, unspecified
CPT/HCPCS: 36415; 80053; 80061; 83036; 83525; 83540; 84436; 84443; 84481; 84702; 85025

== ENCOUNTER 2025-07-09 10:36 | Outpatient (OUT) | payer OTHER, SELFPAY ==
--- OUTSIDE RECORDS SUMMARY | 2025-07-09 10:39 | XMS_ITS | Clinical Summary ---
Author Organization [facility] Address [address] [place] [address] Phone Care Team Providers Care Mobile Tester Name Role Phone Unavailable Primary Care Provider Unavailabl e Social History Tobacco UseTypesPacks/DayYears UsedDateSmoking Tobacco: Never Assessed CommentsUnknownSex and Gender InformationValueDate RecordedSex Assigned at Infsur1906/25/2024 11:56 AM EDTLegal IqrEsdxdd14/07/2024 9:00 AM EDTGender EcqtbaxxNhixmi78/21/2024 11:56 AM EDTSexual OrientationNot on file Plan of Treatment Health MaintenanceDue DateLast DoneCommentsHIV Syceopezk1988Lipid Panel 1988Yearly Adult Ouzxeojk1988MMR Vaccines (1 of 1 - Standard series) 1989Hepatitis C Avbqfxycr29/18/2006Hepatitis B Vaccines (1 of 3 - 19+ 3- dose series)2007Cervical Cancer Wbdypxjcr39/18/2009HPV/Naoiid6305/23/2009Pap Smear2009HPV Vaccines (1 - 3-dose standard series)2015DTaP/Tdap/Td [...] ID:[id number] Type:Not on file Address: [address] [phone]
--- OUTSIDE RECORDS SUMMARY | 2025-07-09 10:39 | XMS_ITS | Clinical Summary ---
Author Organization [facility] Address [address] [place] [address] Care Team Providers Care Paper Wrapping Machine Operator Name Role Phone Sven Boyd MD Primary Care Provider [phone] Devora Clayton MD Unavailable [phone] Halley De Leon DO Unavailable [phone] Allergies Active AllergyReactionsCriticalityNoted FgjbKnsqtyrsHpqthoqxydh00/11/2023odeine 05/16/20230564Eraseoien85/11/2023 Medications MedicationSigDispense QuantityRefillsLast FilledStart DateEnd DateStatus ibuprofen 800 MG tablet Take 800 mg by mouth every 8 (eight) hours if needed.05/12/2023ctive acetaminophen (Tylenol) 500 MG tablet Take 1,000 mg by mouth every 6 (six) hours if rlfviq8007/10/2023ctive Adipex-P 37.5 MG tablet 1 (one) time [...] 1 capsule(300 mg) before bedtime. 90 capsule tive Active Problems No known active problems Social History Tobacco UseTypesPacks/DayYears UsedDateSmoking Tobacco: Every DayCigarettes0.55 Smokeless Tobacco: Never Tobacco Cessation:Ready to Q uit: Not Asked; Counseling Given: Not Answered Alcohol UseStandard Drinks/WeekCommentsNever0 (1 standard drink = 0.6 oz pure alcohol)CommentsUnknownSex and Gender InformationValueDate RecordedSex Assigned at BirthNot on fileLegal AovIliyqb63/15/2023 11:47 PM EDTGender IdentityNot on fileSexual OrientationNot on file Last Filed Vital Signs Vital SignReadingTime TakenCommentsBlood Szeuuvik798/9208/21/2024 3:19 PM EST Svdfe206308/21/2024 3:19 PM YCWWplwpznjrsc35.7 ??C (98.1 ??F)09/29/2023 1:05 PM ESTRespiratory Rate--Oxygen Xpllckicuj36%08/21/2024 3:19 PM ESTInhaled Oxygen Concentration--Zcbvip99.9 kg (152 lb)07/11/2024 9:06 AM WYNKspycr777.5 cm (5' 2 )08/21/2024 3:19 PM ESTBody Mass Index27.808 2:53 PM EDT Plan of Treatment Not on file Care Teams Team MemberRelationshipSpecialtyStart DateEnd Sven Boyd MD PCP - GeneralFamily Jgxbfayx73/1/24 Devora Clayton MD [facility] [place] [address] Referring PhysicianFamily Xmsomylo05/1/24 Halley De Leon DO [address] [place], [place] [id number] Referring UbigyjngzQunysdaxe51/6/24
--- OUTSIDE RECORDS SUMMARY | 2025-07-09 10:39 | XMS_ITS | Encounter Summary ---
Author Organization [facility] Address [address] [place] [address] Care Team Providers Care Valve Steamer Name Role Phone Sven Boyd MD Primary Care Provider [phone] Sven Boyd MD Primary Care Provider [phone] Devora Clayton MD Unavailable [phone] Halley De Leon DO Unavailable [phone] Encounter Details DateTypeDepartmentCare Team (Latest Contact Info)Qaevzjptvcv72/12/2024Clinisync Result Encounter [facility] External Department Unsolicited Chepe Sarabia PA [address] [place] [address] Social History Tobacco UseTypesPacks/DayYears UsedDateSmoking Tobacco: Every DayCigarettes Smokeless Tobacco: NeverAlcohol UseStandard Drinks/WeekCommentsNever0 (1 standard drink = 0.6 oz pure alcohol)CommentsUnknownSex and Gender InformationValueDate RecordedSex Assigned at BirthNot on fileLegal SexFemale 11/17/2022 11:47 PM EDTGender IdentityNot on fileSexual OrientationNot on file documented as of this encounter Plan of Treatment Not on file documented as of this encounter Procedures Procedure NamePriorityDate/TimeAssociated DiagnosisCommentsMRI SPINE LUMBAR W/O KAUYFJUI80/12/2024 11:53 AM EST documented in this encounter Results * MRI SPINE LUMBAR W/O CONTRAST (09/16/2023 11:53 AM EST)Anatomical Region LateralityModalityOtherSpecimen (Source)Anatomical Location / Laterality Collection Method / VolumeCollection TimeReceived Time09/16/2023 11:53 AM EST Narrative 09/16/2023 1:35 PM EST Exam Date/Time: 09/16/2023 12:30 EST Reason for Exam: M54.31 M51.37 M43.06 Report IMPRESSION: There are no acute changes. EXAMINATION: MRI Spine Lumbar w/o Contrast CLINICAL HISTORY: M54.31 ?? M51.37 ?? M43.06 COMPARISONS: NONE AVAILABLE TECHNIQUE: Multiplanar multisequence [...] There is no prevertebral soft tissue swelling. ?? The visualized retroperitoneal structures are unremarkable. T12-L1: There is no disc herniation, central canal narrowing, or neural foraminal narrowing. L1-2: There is a less than 2 mm disc bulge. There is no narrowing of central canal or the neural foramina. ?? L2-3: There is no disc herniation, central canal narrowing, or neural foraminal narrowing. ?? L3-4: There is no disc herniation, central canal narrowing, or neural foraminal narrowing. ?? L4-5: There is a less than 2 mm symmetric disc bulge as well as mild bilateral facet arthrosis and mild ligamentum flavum hypertrophy. There is mild narrowing of central canal and mild bilateral neural foraminal. ?? Report L5-S1: There is no disc herniation, central canal narrowing, or neural foraminal narrowing. ?? The visualized portions of the sacrum and iliac bones are within normal limits. Ordering Provider: Chepe Sarabia FINAL REPORT Dictated: ??09/16/2023 1:32 pm ? Perez Johnson MD, V. Signed (Electronic Signature): ??09/16/2023 1:32 pm Signed by: ??Perez Johnson MD, V. Transcribed by: ??DP ? Technologist: ??KML Technical Comments None Procedure Note Radiology, Radiologist, - 09/16/2023 Exam Date/Time: 09/16/2023 12:30 EST Reason for [...] fracture. There is preservation of the vertebral bodyheights. The intervertebral discs are unremarkable. The bone marrow signal is within normal limits. The distal cord and conus medullaris are within normal limits. The caudaequina is unremarkable. There is no prevertebral soft tissue swelling. The visualized retroperitoneal structures are unremarkable. T12-L1: There is no disc herniation, central canal narrowing, or neuralforaminal narrowing. L1-2: There is a less than 2 mm disc bulge. There is no narrowing ofcentral canal or the neural foramina. L2-3: There is no disc herniation, central canal narrowing, or neuralforaminal narrowing. L3-4: There is no disc herniation, central canal narrowing, or neuralforaminal narrowing. L4-5: There is a less than 2 mm symmetric disc bulge as well as mildbilateral facet arthrosis and mild ligamentum flavum hypertrophy. There is mild narrowingof central canal and mild bilateral neural foraminal. Report L5-S1: There is no disc herniation, central canal narrowing, or neuralforaminal narrowing. The visualized portions of the sacrum and iliac bones are within normallimits. Ordering Provider: Cheep Sarabia FINAL REPORT Dictated: 09/16/2023 1:32 pm Perez Johnson MD, V. Signed (Electronic Signature): 09/16/2023 1:32 pm Signed by: Perez Johnson MD, V. Transcribed by: EAMON Technologist: ELOISE Technical Comments None Authorizing ProviderResult TypeResult StatusTodd Mikhail Sarabia [facility] Final Result documented in this encounter Visit Diagnoses Not on filedocumented in this encounter Care Teams Team MemberRelationshipSpecialtyStart DateEnd Sven Boyd MD PCP - GeneralFamily Medicine05/16/2310 Sven Boyd MD [facility] Rhbdzqai00/1/24 Devora Clayton MD [address] [place] [address] Referring PhysicianFami Cnpzzfit82/1/24 Halley De Leon DO [address] [place] [address] Referring GacfqdkvdPcdtfmvco88/6/24documented as of this encounter
--- OUTSIDE RECORDS SUMMARY | 2025-07-09 10:39 | XMS_ITS | Clinical Summary ---
Author Organization [employer] [facility] Address [id number] [address] [place] [address] Care Team Providers Care Experimental Mechanic Outboard Motors Name Role Phone Sven Boyd MD Primary Care Provider [phone] Allergies Active AllergyReactionsCriticalityNoted LlhwNmnhdmfgOvrcqymttekHztrKwg09/01/2023 Ynhoovg1607/06/20233727Jdslsahmg20/11/2023 Medications MedicationSigDispense QuantityRefillsLast FilledStart DateEnd DateStatus metoprolol [...] or more drinks on one occasion?Never07/07/2023HQ-2AnswerDate RecordedTotal Gpqau99909/06/2022hildcareAnswerDate RecordedChildcareUnknown 02/12/2019EmploymentAnswerDate ZlehxxqoPrbpuopzomQlxaanv63/10/2019Hunger ScreeningAnswerDate RecordedWithin the past 12 months we [...] Last Filed Vital Signs Vital SignReadingTime TakenCommentsBlood Xcmkcrlp990/8808/22/2023 10:47 AM EST Cqxhu606808/22/2023 10:47 AM ZTAQegmfhlaqaf72.9 ??C (98.4 ??F)07/10/2023 8:00 AM ESTRespiratory Ouzi486409/09/2022 8:00 AM ESTOxygen Kgckcfzicc46%07/10/2023 12:00 AM EDTInhaled Oxygen Concentration--Gebfat10.6 kg (160 lb)09/03/2024 6:26 AM EST Xhcfzr664 cm (5' 3 )10/31/2023 8:25 AM ESTBody Mass Index28.34010/31/2023 8:25 AM EST Plan of Treatment Health MaintenanceDue DateLast DoneCommentsPap Smear2009DTaP,Tdap and Td Vaccines (3 - Td or Tdap), 09/22/2011Depression Screening Tobacco Doasyvjzu07Influenza Vaccine Adult BMI Msjywbtdy62 Goals GoalPatient Goal TypeAssociated ProblemsRecent ProgressPatient-Stated?Author <enter goal here> Lavinia Ann, HANDKERCHIEF MAKER Note: Evaluation of progress towards goal: Home with , self care Medical Devices ImplantedTypeAreaManufacturerDevice IdentifierShelf Expiration DateModel / Serial / LotGraft Bn Cllr Bn Mtrx Sm 1cc Vivigen Frmbl Rpl [id number] Rpl Special [id number] - [id number] - [id number] Implanted:Qty: 1 on 07/08/2023 by [facility] [place] ImplantN/A: Spine AbspkytqSjxqxtb99//[id number] / [id number] / Spacer Spnl 98q08fl Terrence 7d 14mm Pk Corpectomy Sys Ns Lf 3.5/3.5deg For Corpectomy Terrence - [id number] Implanted:Qty: 1 on 07/08/2023 by Madan Velasquez MD [facility] [place] ImplantN/A: Spine EcxpnbvxDlxjye752.521 / / Plate Bn 28mm 2 Lvl Xtend Spne Crv Ant Ns - [id number] Implanted:Qty: 1 on 07/08/2023 by Madan [facility] MD [facility] [place]ate[place]/A: Spine UnnczhybEqclkz136.228 / / Screw Bn 16mm 4.2mm Slf Drl Va Spne Xtend Ns - [id number] Implanted:Qty: 4 on 07/08/2023 [facility] Spine TusovzoiLrknti026.016 / / Insurance * Guarantor: Lavinia Buchanan AAccount TypeRelation to PatientDate of BirthPhone Billing AddressPersonal/YrfcbgCdfw[address] [place] [phone] Advance Directives * Full Code (Latest Code Status on File) Date ActivatedDate BqnixvqvpscJdyqbyuv63/2/2023 7:26 AM07/10/2023 12:47 PM Care Teams Team MemberRelationshipSpecialtyStart DateEnd Date Sven Boyd MD PCP - GeneralFamily Qtedhwci32/2/23
--- OUTSIDE RECORDS SUMMARY | 2025-07-09 10:39 | XMS_ITS | Encounter Summary ---
Author Organization [facility] Address [address] [place] [address] Care Team Providers Care Installer Apprentice Name Role Phone Sven Boyd MD Primary Care Provider + Sven Boyd MD Primary Care Provider [phone] Devora Clayton MD Unavailable [phone] Halley De Leon DO Unavailable [phone] Encounter Details DateTypeDepartmentCare Team (Latest Contact Info)Ykmjbxqrmwi55/05/2024Clinisync Result Encounter [facility] External Department Unsolicited Mark Hough DO [address] [facility] [address] [address] [place], [place] [address] Social History Tobacco UseTypesPacks/DayYears UsedDateSmoking Tobacco: Every DayCigarettes Smokeless Tobacco: NeverAlcohol UseStandard Drinks/WeekCommentsNever0 (1 standard drink = 0.6 oz pure alcohol)CommentsUnknownSex and Gender InformationValueDate RecordedSex Assigned at BirthNot on fileLegal SexFemale 11/17/2022 11:47 PM EDTGender IdentityNot on fileSexual OrientationNot on file documented as of this encounter Plan of Treatment Not on file documented as of this encounter Procedures Procedure NamePriorityDate/TimeAssociated DiagnosisCommentsUS PELVIS WEQFRTLRATOM15/05/2024 4:01 PM EST documented in this encounter Results * US PELVIS TRANSVAGINAL (10/10/2023 4:01 PM EST)Anatomical RegionLaterality ModalityOtherSpecimen (Source)Anatomical Location / LateralityCollection Method / VolumeCollection TimeReceived Time10/10/2023 4:01 PM EST Narrative 10/10/2023 4:03 PM EST [facility] ?[address] ? [place] [address] ? Ultrasound Report ? Signed ? Patient: BAO LEE ? MR#: [id number] ?? : 1990 ?Acct:[id number] ?? Age/Sex: 33 / F ?ADM Date: 10/10/23 ?? [facility] ? Attending Dr: Mark Hough D.O. ? Ordering Physician: Mark Hough D.O. ?? Date of Service: 10/10/23 ?? Procedure(s): US pelvis transvaginal ?? Accession Number(s): [id number] ? cc: Mark Hough D.O.; Sven Boyd M.D. ? [facility] ? [address] [facility] ? [place] [address] ? Patient Name: ?? BAO LEE ? MRN: [facility]:[id number] ? date: 1990 ?Sex: F ?? Assigned [facility] ?? Current [facility] ?? Accession/Order Number: [id number] ?? Exam Date: 10/10/2023 ??15:15 ?Report Date: 10/10/2023 ??16:01 ? At the request of: ?? MARK ??GIANLUCA ? Procedure: ??US pelvis transvaginal ? EXAMINATION: US pelvis transvaginal ? HISTORY: PELVIC PAIN ? COMPARISON: No relevant comparison available. ? FINDINGS: ? The uterus is normal in size, contour and echotexture measuring 9.0 x 3.9 x ?? 5.7 ?? cm, anteverted, retroflexed. No focal myometrial mass. ? The endometrium measures 5 mm, normal. ? The right ovary is normal measuring 2.8 x 1.9 x 3.0 cm. 1.3 cm area of ?? anechoic ?? echogenicity, simple cyst Normal color and Doppler flow. ? Left ovary measures 3.6 x 2.5 x 3.1 cm. Normal color and Doppler flow. Area of ? anechoic echogenicity measuring 3.0 x 2.6 x 2.3 cm ? US/US pelvis transvaginal ?? IMPRESSION: ? 3 cm left ovarian simple cyst ? Electronically authenticated by: LEANN ??MESSI ?? Date: 10/10/2023 ??16:01 ? Dictated By: ?Leann Swenson M.D. ? Signed By: ?10/10/23 1603 ? DD/ 1601 ? TD/TT: ? Toolroom Helper: Procedure Note Radiology, Radiologist, - 10/10/2023 [place] [address] Ultrasound Report Signed Patient: BAO LEEMR#: [id number] : 1990Acct:[id number] Age/Sex: 33 / FADM Date: 10/10/23 Loc: [facility] Attending Dr: Mark Hough D.O. Ordering Physician: Mark Hough D.O. Date of Service: 10/10/23 Procedure(s): US pelvis transvaginal Accession Number(s): [id number] cc: Mark Hough D.O.; Sven Boyd M.D. The [place] [id number] Patient Name: BAO LEE MRN: [id number] date: 1990 Sex: F Assigned Patient Location: [facility] Current Patient Location: [facility] Accession/Order Number: [id number] Exam Date: 10/10/2023 15:15 Report Date: 10/10/2023 16:01 At the request of: MARK HOUGH Procedure: US pelvis transvaginal EXAMINATION: US pelvis transvaginal HISTORY: PELVIC PAIN COMPARISON: No relevant comparison available. FINDINGS: The uterus is normal in size, contour and echotexture measuring 9.0 x 3.9x 5.7 cm, anteverted, retroflexed. No focal myometrial mass. The endometrium measures 5 mm, normal. The right ovary is normal measuring 2.8 x 1.9 x 3.0 cm. 1.3 cm area of anechoic echogenicity, simple cyst Normal color and Doppler flow. Left ovary measures 3.6 x 2.5 x 3.1 cm. Normal color and Doppler flow.Area of anechoic echogenicity measuring 3.0 x 2.6 x 2.3 cm US/US pelvis transvaginal IMPRESSION: 3 cm left ovarian simple cyst Electronically authenticated by: LEANN SWENSON Date: 10/10/2023 16:01 Dictated By: Leann Swenson M.D. Signed By:10/10/23 1603 DD/ 160 TD/TT: Toolroom Helper: Authorizing ProviderResult TypeResult StatusCorey Gianluca DOCLINISYNC IMAGINGFinal Result documented in this encounter Visit Diagnoses Not on filedocumented in this encounter Care Teams Team MemberRelationshipSpecialtyStart DateEnd Date Sven Boyd MD PCP - GeneralFamily Medicine05/16/2310 Sven Boyd MD PCP - GeneralFamily Lodhaqyu68/1/24 Devora Clayton MD [address] [place] [address] Referring PhysicianFamily Dqktzsyc96/1/24 Halley De Leon DO [address] [place] [address] Referring MufxlyqauTdohsbyre75/6/24documented as of this encounter
--- NOTE | 2025-07-09 10:42 | XR_ITS ---
The [address] [address] Patient Name: BAO LARA MRN: [id number] date: 1990 Sex: F Assigned Patient Location: [facility] Current Patient Location: [facility] Accession/Order Number: [id number] Exam Date: 07/09/2025 11:05 Report Date: 07/09/2025 14:34 At the request of: PRASHANT BERMUDEZ MD Procedure: XR cervical spine 2-3V XR cervical spine 2-3V 07/09/2025 11:16 AM SIGNS AND SYMPTOMS: ^Neck Pain PROTOCOLS: Frontal, lateral, and atlantoaxial views COMPARISON: None FINDINGS: The bones are in anatomic alignment. There is preservation of the vertebral body heights. There is anterior and intervertebral fusion spanning C5-C7 with evidence of previous C6 corpectomy. No hardware complication or malalignment. The intervertebral discs are otherwise preserved. There is no fracture or destructive lesion. XR/XR cervical spine 2-3V IMPRESSION: There is anterior and intervertebral fusion spanning C5-C7 with evidence of previous C6 corpectomy. No hardware complication or malalignment. Impression dictated by: Sujit Suarez M.D. 07/09/2025 2:34 PM Dictation Location: [place] [address] Electronically authenticated by: [id number] Y Date: 07/09/2025 14:34
--- NOTE | 2025-07-09 10:42 | XR_ITS ---
The [address] [address] Patient Name: BAO LARA MRN: [id number] date: 1990 Sex: F Assigned Patient Location: [facility] Current Patient Location: [facility] Accession/Order Number: [id number] Exam Date: 07/09/2025 11:05 Report Date: 07/09/2025 14:32 At the request of: PRASHANT BERMUDZE MD Procedure: XR forearm RT 2V XR forearm RT 2V 07/09/2025 11:16 AM SIGNS AND SYMPTOMS: ^Right Arm Pain PROTOCOL: 2 views of the right forearm COMPARISON: None FINDINGS: The bones are in anatomic alignment. There is no fracture or dislocation. The visualized elbow and wrist are intact. XR/XR forearm RT 2V IMPRESSION: No acute bony injury. Impression dictated by: Sujit Suarez M.D. 07/09/2025 2:32 PM Dictation Location: [place] [address] Electronically authenticated by: [id number] Y Date: 07/09/2025 14:32
--- NOTE | 2025-07-09 10:42 | XR_ITS ---
The [address] [address] Patient Name: BAO LARA MRN: [id number] date: 1990 Sex: F Assigned Patient Location: [facility] Current Patient Location: [facility] Accession/Order Number: [id number] Exam Date: 07/09/2025 11:05 Report Date: 07/09/2025 14:33 At the request of: PRASHANT BERMUDEZ MD Procedure: XR lumbar spine min 4V XR lumbar spine min 4V 07/09/2025 11:16 AM SIGNS AND SYMPTOMS: Low back pain, recent fall PROTOCOLS: Frontal, lateral, and oblique radiographs of the lumbar spine COMPARISON: 07/06/2024 FINDINGS: The alignment, development and bony structures are normal. There is no fracture or destructive lesion. Mild facet degenerative changes are present in the lower lumbar spine. A presumed gallstone is noted in the right upper quadrant. The disk spaces are well-preserved. The sacrum and sacroiliac joints are normal. XR/XR lumbar spine min 4V IMPRESSION: No fracture or subluxation. Degenerative changes are noted in the lower lumbar spine. Impression dictated by: Sujit Suarez M.D. 07/09/2025 2:33 PM Dictation Location: [place] [address] Electronically authenticated by: [id number] Y Date: 07/09/2025 14:33
--- NOTE | 2025-07-09 10:42 | XR_ITS ---
[address] [address] Patient Name: BAO LARA MRN: [id number] date: 1990 Sex: F Assigned Patient Location: [facility] Current Patient Location: [facility] Accession/Order Number: [id number] Exam Date: 07/09/2025 11:05 Report Date: 07/09/2025 14:31 At the request of: PRASHANT BERMUDEZ MD Procedure: XR pelvis 1-2V XR pelvis 1-2V 07/09/2025 11:16 AM SIGNS AND SYMPTOMS: ^Low Back Pain PROTOCOL: Frontal radiograph of the pelvis COMPARISON: None FINDINGS: The bony ring of the pelvis is intact. Sacroiliac joints, lumbar spine, and hips are preserved. XR/XR pelvis 1-2V IMPRESSION: No acute bony injury or significant degenerative change. Impression dictated by: Sujit Suarez M.D. 07/09/2025 2:31 PM Dictation Location: [place] [address] Electronically authenticated by: [id number] Y Date: 07/09/2025 14:31
--- OUTSIDE RECORDS SUMMARY | 2025-07-09 10:47 | XMS_ITS | CCD ---
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 09:06-6609KrX3% (BldA) [Mass fraction]97 %Kev Haley DO Work Phone: [facility] HospitalGrrzkneloo23-93-0234 09:06-0500Systolic blood kjdskpju654 mm[Hg]Kev Haley DO Work Phone: [facility] HospitalGwgwlncubo50-46-3088 15:15-0400Blood Pressure LocationMichae NILL [phone]-LhmdtSamaritan North [facility] Center10-02-2024 15:15-0400Diastolic blood qfkllowo79 mm[Hg]Tenzin NILL [phone]-EmcgqSamaritan North Health Center10-02-2024 15:15-0400Heart rate72 /minMichael NILL [phone]-ZgfmlSamaritan North Health Center10-02-2024 15:15-0400Respiratory rate16 /minMichael NILL [phone]-LyeoxSamaritan North Health Center10-02-2024 15:15-0400Systolic blood rzlxcahl240 mm[Hg]Tenzin NILL 589-2630Unjqeo-VpjksSamaritan North Health Center02-26-2024 08:25-0500Body gumcqh674 Rodneymagdy Kruger BREAKFAST SUPERVISOR-ACCOUNTS PAYABLE ASSOCIATE Work Phone: [facility]02-26-2024 08:25-0500Body mass index (BMI) [Ratio]29.23 kg/y6Rrehwigr Kruger BREAKFAST SUPERVISOR-ACCOUNTS PAYABLE ASSOCIATE Work Phone: [facility]02-26-2024 08:25-0500Body .84 kgPaologaldino Kruger BREAKFAST SUPERVISOR-ACCOUNTS PAYABLE ASSOCIATE Work Phone: [facility]02-01-2024 13:14-0500Body dibcxj261.5 Rodneymagdy Kruger BREAKFAST SUPERVISOR-ACCOUNTS PAYABLE ASSOCIATE Work Phone: [facility]02-01-2024 13:14-0500Body mass index (BMI) [Ratio]27.8 kg/j1Fqwdgjqw Miller BREAKFAST SUPERVISOR-ACCOUNTS PAYABLE ASSOCIATE Work Phone: [facility]02-01-2024 13:14-0500Body .95 kgPaoloharrymila Kruger BREAKFAST SUPERVISOR-ACCOUNTS PAYABLE ASSOCIATE Work Phone: [facility]11-14-2022 06:00-0500Diastolic blood ijielcvq30 mm[Hg]Et3 QobpavbyZcdbeRygihe30-37-5076 06:00-0500Heart ushx346 /minEt3 RkvlmgvaLbdmvXlboem74-89-4770 06:00-0500Respiratory rate16 /minEt3 XxsdtpuaOunpsPdxlhx94-76-1857 06:00-9743WfQ1% (BldA) [Mass fraction]98 %Et3 McshyodtXqqeeBvxzvb27-27-6902 06:00-0500Systolic blood pucbdrva196 mm[Hg]3 BoihehxaHlfltMrnjtn76-18-8491 10:36-0400Body ypadogtojyu26.88 [degF][facility]07-28-2022 10:36-0400Diastolic blood crdfawht33 mm[Hg][facility]07-28-2022 10:36-0400Heart rate71 /min[facility]07-28-2022 10:36-0400Respiratory rate18 /min[facility] 04-01-2022 10:36-0466CbL2% (BldA) [Mass fraction]96 %[facility]07-28-2022 10:36-0400Systolic blood wyjkogfq809 mm[Hg][facility] Encounters Encounter DateEncounter TypeCare ProviderFacilityStart: 09-03-2024 End: 27-20-8494dafxmcalsjQKKIKX Marlon WHITTINGTONKeenan Private Hospitalca [facility] Hospitaltart: 08-27-2024 End: 00-43-0110dhiinyegpiQafoipt Lena Plascencia MDFacility:[facility] [place] Start: 08-21-2024 End: 39-96-1129Nulzrj outpatient visit 25 minutesNicole Haley DO Work Phone: [facility] ROUTEComment on above:Cervical myelopathy (CMS/HCC) (Primary Dx); Weakness; Cervical radiculopathy; Numbness and tingling; Neuropathic pain; Other chronic painStart: 08-21-2024 End: 21-72-3352yyjuooujkhVJXGBG DANNERNot AvailableStart: 08-21-2024 End: 88-13-8608Fbnmze flowsheetNicole Haley DO Work Phone: [facility] [place] STATE ROUTEStart: 08-21-2024 End: 29-20-5289Yplijr flowsheetNicole Haley DO Work Phone: [facility] [place] STATE ROUTEStart: 08-06-2024 End: 99-30-6630fawqjjgspyOdkqclk Vytautas Jadaeditis MDFacility:PM [place] Start: 07-30-2024 End: 55-91-7056Fyjnzc flowsheetNicole Haley DO Work Phone: noms NE NEUROStart: 07-30-2024 End: 27-73-5305Jjhpqt flowsheetNicole Haley DO Work Phone: noms NE NEUROStart: 07-30-2024 End: 07-29-2691Sbsmxon encounter procedureNicole Haley DO Work Phone: noms NE NEUROComment on above:Cervical radiculopathy (Primary Dx); Numbness and tingling; WeaknessStart: 07-30-2024 End: 26-55-7778dpicliklkpGDKGFE DANNERNot AvailableStart: 07-25-2024 End: 99-25-5377Utqkgt flowsheetNicole Haley DO Work Phone: [facility] [place] [facility] ROUTEStart: 07-25-2024 End: 49-12-8017Ulhbho flowsheetNicole Haley DO Work Phone: [facility] [place] [facility] ROUTEStart: 07-25-2024 End: 70-60-9862Vtthznt encounter procedureNicole Haley DO Work Phone: noMS [place] STATE ROUTEComment on above:Numbness and tingling; WeaknessStart: 07-25-2024 End: 43-17-7939sebrjirmkfQSOVXU DANNERNot AvailableStart: 07-16-2024 End: 56-42-2000fnpoudwgbtFskjwgs Vytautas Giedraitis MDFacility:[facility] [place] Start: 07-11-2024 End: 71-98-0981Ajpnns flowsheetNicole Haley DO Work Phone: noms NEUROLOGYStart: 07-11-2024 End: 66-66-7573Raomnm flowsheetNicole Haley DO Work Phone: noms NEUROLOGYStart: 07-11-2024 End: 40-04-4971Kydaxy consultation new/estab patient 60 minNicole Haley DO Work Phone: noms NEUROLOGYComment on above:Cervical myelopathy (CMS/HCC) (Primary Dx); Numbness and tingling; Weakness; Sensory ataxiaStart: 07-11-2024 End: 53-13-9831vsgismkgeuBFYZZK DANNERNot AvailableStart: 07-02-2024 End: 81-82-2724Dfiuaw outpatient new 45 Medhat Van MD Work Phone: [facility]lingtonComment on above: Neck pain (Primary Dx); Chronic low back pain without sciatica, unspecified back pain lateralityStart: 07-02-2024 End: 80-49-2712ybmqevsnycRSFWIVM L GORDONSelect Medical Specialty Hospital - Columbus Southtart: 01-56-5862bkxvgsnhwiHTXXNDAMemorial [facility] P[facility] Start: 40-23-5239lpwlwzgsxgWFAAPKGHand County [facility] Ambulatory PPGStart: 06-07-2024 End: 87-80-9267Byvefrjsj encounterMichael T Kamara DO Work Phone: noms NB ORTHOStart: 06-06-2024 End: 59-46-6252tadocbrsbiOvhoczl R NILLFacility: BellevueStart: 06-06-2024 End: 72-10-8055Nfzrjom encounter procedureMichael R NILL [phone]-Pjenf General Surgery [place] Start: 90-65-9951vunxnbmlrzUtlw HillsFacility: BellevueStart: 04-12-2024 End: 00-43-9107sjfksmksbsMTBPDHL T POWERSNot AvailableStart: 10-31-2023 End: 76-66-2987Gbbwnh outpatient visit 25 minutesIgor Paradise BREAKFAST SUPERVISOR-ACCOUNTS PAYABLE ASSOCIATE Work Phone: [facility] Physicians NeuroSurgeryComment on above: Foraminal stenosis of cervical region (Primary Dx); Radiculopathy, cervical region; History of fusion of cervical spineStart: 10-31-2023 End: 70-44-6711rvdsdmmzuzYCJBHLLLWashington Rural Health Collaborative Ambulatory PPGStart: 73-40-1490Tlzawdqfy encounterSarah Sewell [facility] Physicians NeuroSurgeryComment on above:MRI resultsStart: 10-21-2023 End: 26-45-9791quqabdqremBFXCEHHQMercy Health St. Charles Hospitaltart: 10-10-2023 End: 54-15-6616Tagkoxflq Result EncounterCorey Gianluca DO Work Phone: noms External Department UnsolicitedStart: 10-10-2023 End: 90-63-1645Osinbklxi Result EncounterCorey Gianluca DO Work Phone: NOWW External Department UnsolicitedStart: 10-10-2023 End: 03-81-7009lgsbkndgeyASHVL FAZIONot AvailableStart: 44-78-6573jgkaddjxtuDakota Plains [facility] Center Ambulatory PPGStart: 10-06-2023 End: 31-12-0825Tbmifb outpatient visit 25 minutesMdgaldino Paradise BREAKFAST SUPERVISOR-ACCOUNTS PAYABLE ASSOCIATE Work Phone: [facility] Physicians NeuroSurgeryComment on above: Cervical radiculopathy (Primary Dx)Start: 10-06-2023 End: 93-34-6560jhpvvnnqaxGIEVENFHand County [facility] Ambulatory PPGStart: 09-29-2023 End: 52-00-0006ztobkkwhxqCKGRMXA T POWERSNot AvailableStart: 09-16-2023 End: 53-00-2507Supxgmhrr Result EncounterTocaitie NICHOLAS Work Phone: noms External Department UnsolicitedStart: 09-16-2023 End: 99-15-1722Wwbxeuhqu Result EncounterTocaitie NICHOLAS Work Phone: [facility] External Department UnsolicitedStart: 09-16-2023 End: 77-98-0424vfytehxqikOjta D HillsFacility:FTMCStart: 09-16-2023 End: 26-51-7445Lycwlpf encounter procedureTocaitie Sarabia [facility] Start: 30-23-2730Anmrieqsf encounterSarah Nelson Physicians NeuroSurgeryComment on above:CT resultsStart: 08-22-2023 End: 91-63-0049yfhhklekapWUCGMOMI [facility] Ambulatory PPGStart: 06-17-2023 End: 38-15-5302Thoppuxuf department patient visitDOANNIE Noel [facility] HospitalStart: 10-15-2022 End: 04-55-1405dwvwsdwejfYMVQEQ CRAMERFacility:Z5Hhzeq: 07-19-2022 End: 09-38-5242ssoqelasvuDVGUWBB PROVIDERFacility:METROHealthStart: 07-19-2022 End: 86-24-4054cqymafiqwhVd5 ResourceMetroHealth Emergency Triage, Treat and TransportStart: 07-19-2022 End: 66-68-8554Pzkctyjxp department patient visitEt3 ResourceMetroHealth Emergency Triage, Treat and TransportComment on above:ArrivedStart: 04-23-2022 End: 74-46-7845Fxiesip encounter procedureTenzin Kamara [facility] Start: 04-22-2022 End: 72-17-9378MbzfbxtpnFcmytci T Powers [facility] Start: 04-01-2022 End: 44-06-7101Bolpkyoqy department patient visitAstrit Sharath AayushPaulding County Hospital Start: 03-03-2022 End: 02-22-6459cxekhyjhfsJV DOUGLAS HOY .Facility:F6Mvbol: 02-26-2022 End: 61-27-4735omimczbsqqPG SVEN BOYD .Facility: Procedures DateProcedureProcedure DetailPerforming ClinicianStart: 07-30-2024 End: 02-28-3476Ynwioc emg ea extremty w/paraspinl area completeNicole Haley DO Work Phone: Start: 07-25-2024 End: 55-36-1575Glfzkf emg ea extremty w/paraspinl area completeNicole Haley DO Work Phone: Start: 93-00-9487AQ PELVIS TRANSVAGINALCorey Gianluca DO Work Phone: Start: 27-62-4477QTH SPINE LUMBAR W/O CONTRASTTodd D Sunbright PA Work Phone: Start: 19-99-5293Jdxyui-up visitFollow-upPATRICIA MILLERStart: 79-25-2795Egpzfdjqv corpectomy ant dcmprn cervical 1 segMichael NILL Comment on above:E0Zmoli: 13-74-2003Yrzxt depression screening assessmentAntoanali Sewell LPNCesarean sectionMichael NILL Decompression of median nerveMichael NILL finger surgeryAstrit Aayush Plan of Treatment DateCare ActivityDetailAuthorStart: 81-68-4242Amtsknwi (RZV) Vaccine (1 of 2) Shingles (RZV) Vaccine (1 of 2)MetroHealthStart: 74-51-5961Mvledf Vaccines (1 of 2)Zoster Vaccines (1 of 2)[facility] HospitalStart: 10-31-2024 Adult BMI ScreeningAdult BMI ScreeningProCleveland Clinic Medina Hospitalca Health SystemStart: 10-22-2024 End: 75-78-5790Daurzav encounter pfwzhaogv07/17/2025 9:20 AM EST Office Visit [facility] [address] [address] [place] [phone] Tracey Wharton NP [address] [place] [facility] ROUTEStart: 84-47-2780Voert BMI ScreeningAdult BMI ScreeningKeenan Private Hospitalca [facility] SystemStart: 25-12-6882Bcprhui ScreeningTobacco ScreeningProCleveland Clinic Medina Hospitalca [facility] SystemStart: 09-18-2024 End: 43-64-3899Lusperz encounter hrbolqsuh97/14/2025 9:00 AM EST [facility] [address] [place] [address] Kev Whittington, [address] [place] [address] [facility] ROUTEStart: 64-54-6120Qhhcqau ScreeningTobacco ScreeningDunlap Memorial Hospital SystemStart: 08-21-2024 End: 26-88-2657Vdeqkgs encounter procedureNOMEMORIAL HOSPITALANDREAS [facility] ROUTEComment on above:ArrivedStart: 07-30-2024 End: 87-17-6639MZ Brain WO and W contrast IVMR brain w and wo contrast routine Imaging Routine Numbness and tingling Weakness Expected: 07/30/2024, Expires: 07/30/2025[facility] Work Phone: comment on above:Expected: 07/30/2024, Expires: 07/30/2025Start: 07-30-2024 End: 59-83-0022Vbfpzot encounter procedureNOMS NE NEUROComment on above:Arrived Start: 07-25-2024 End: 07-03-2562Yicsbto encounter procedureNOMS [place] [address] R[address]TEComment on above:ArrivedStart: 07-11-2024 End: 03-45-7546QZM 2 ExtremitiesEMG 2 Extremities Neurology Routine Numbness and tingling Weakness Expected: 07/11/2024 (Approximate), Expires: 07/11/2025NOMS HealthcareComment on above:Expected: 07/11/2024 (Approximate), Expires: 07/11/2025Start: 07-11-2024 End: 44-30-0396HZE 11-12 NervesNVC 11-12 Nerves Neurology Routine Numbness and tingling Weakness Expected: 07/11/2024 (Approximate), Expires: 07/11/2025NOWV HealthcareComment on above:Expected: 07/11/2024 (Approximate), Expires: 07/11/2025Start: 07-11-2024 End: 23-95-6761VNR 9-10 NervesNVC 9-10 Nerves Neurology Routine Numbness and tingling Weakness Expected: 07/11/2024 (Approximate), Expires: 07/11/2025[facility] Work Phone: comment on above:Expected: 07/11/2024 (Approximate), Expires: 07/11/2025Start: 07-11-2024 End: 13-06-5872Svxvhrk encounter bllymzlft53/06/2024 9:00 AM EST Office Visit [facility] [address] [facility] [address] [place] [address] Kev Whittington DO [address] [place] [address] ArrivedNOLAND HOSPITAL MONTGOMERY NEUROLOGYComment on above:ArrivedStart: 75-19-4764Ncssk BMI ScreeningAdult BMI ScreeningProPromedica Toledo Hospital SystemStart: 22-34-2777Gdeclwkkab ScreeningDepression ScreeningProPromedica Toledo Hospital SystemStart: 03-39-0651LXfF,Tdap and Td Vaccines (3 - Td or Tdap)DTaP,Tdap and Td Vaccines (3 - Td or Tdap)ProMe[facility] SystemStart: 88-03-0945ZYuE/Tdap/Td Vaccines (2 - Td or Tdap)DTaP/Tdap/Td Vaccines (2 - Td or Tdap)[facility]: 38-61-3198ISWNO-19 Vaccine ( season)COVID-19 Vaccine ( season)[facility]: 04-68-0951Unxhrzghf vaccinationInfluenza Vaccine (#1)[facility]: 10-31-2023 End: 13-75-7295Vajmnoc encounter xpxcobuyc53/26/2024 8:30 AM EST Office Visit [facility] [address] [place] [id number] Igor Kruger, LEANDRA-ACCOUNTS PAYABLE ASSOCIATE [address] [place] [address] [facility] Start: 10-06-2023 End: 06-92-2549TE Cervical spine WO contrastMR cervical spine without contrast Imaging Routine Cervical radiculopathy Expected: 10/06/2023, Expires: 10/06/2024 [facility] Work Phone: Comment on above:Expected: 10/06/2023, Expires: 10/06/2024Start: 47-72-5496Sdrnyhlzz vaccinationInfluenza VaccineDunlap Memorial Hospital SystemStart: 35-19-0774Wowymsfif vaccinationInfluenza Vaccine (#1) [facility]HealthStart: 40-30-7696Kpsrkfmad for malignant neoplasm of cervix MetroHealthStart: 13-94-2547Kxyogngkj B Vaccines (1 of 3 - 19+ 3-dose series) Hepatitis B Vaccines (1 of 3 - 19+ 3-dose series)[facility]: 22-92-3663Lxein BMI Follow Up PlanAdult BMI Follow Up Plan [facility] SystemStart: 41-96-9981Bbxotkwja C screeningMetroHealthStart: 13-21-5138Fdrhgzu + diphtheria + acellular pertussis vaccine (product)Tdap BoosterMetroHealthStart: 23-65-3778SQB screeningHIV TestMetroHealthStart: 32-91-2211Kmxlogbbm vaccinationVaricella Vaccines (1 of 2 - 13+ 2-dose series) [facility]: 87-35-8377NDW Vaccines (1 of 1 - Standard series)MMR Vaccines (1 of 1 - Standard series)[facility]: 99-84-5592UXOOE-19 Vaccine (#1)COVID-19 Vaccine (#1)[facility] Start: 90-28-2490QUW screeningHIV ScreeningLutheran Hospital Start: 76-42-8723Lvpjs panelLipid PanelLutheran HospitalStart: 99-52-7969Gbfsllc CounselingTobacco CounselingDunlap Memorial Hospital SystemStart: 95-42-1365Zkacso Adult PhysicalYearly Adult PhysicalLutheran Hospital Immunizations Immunization DateImmunizationNotesCare KlrnlciyWwpgyqlu66-69-4900Xghgvbslk, injectable, [place] Canine Kidney, preservative free, quadrivalentAntoinette [facility]10-09-2020influenza virus vaccine, unspecified formulationAntoinee [facility]10-23-2014 tetanus toxoid, reduced diphtheria toxoid, and acellular pertussis vaccine, adsorbedAntoinette [facility]01-18-2012tetanus toxoid, reduced diphtheria toxoid, and acellular pertussis vaccine, adsorbedAstrit [facility] Payers DatePayer CategoryPayerPolicy [id number] (Managed Care)[employer] [id number] [id number] [id number] Health [id number]2.807442.13263-20-3429Bnxrwdw [id number] 2.16.840.1.704752.3.57[id number] 2.16.840.1.966117.3.579.2.37264-47-8567Pargtln3511033 2.16840.1.377129.3.57[id number] 2.16840.1.052050.3.579.2.13144-78-3043Gerqxpn70469427 2.840.1.351150.3.579.2.27210-36-6329Eamxjsl06978527 2.840.1.553902.3.579.2.23741-47-2625Jxjbrbz56916462 2.840.1.646587.3.579.2.63109-30-6918Txozihw76741930 2.840.1.884612.3.579.2.60760-47-3976Kwqpgue19417204 2.840.1.648523.3.579.2.778147-22-6072Nlpejgq49608792 2.840.1.504171.3.579.2.999395-26-5248Dgriork35363230 2.840.1.273388.3.579.2.490261-68-0291Venlpka33092179 2.840.1.446196.3.579.2.236697-24-2120Ynuqvla85506933 2.840.1.191927.3.579.2.401125-47-5643Zutlkzl78081108 2.840.1.122962.3.579.2.270232-70-3067Rrboung46367851 2.16.840.1.321260.3.579.2.419422-44-1848Hsqhnhb94879916 2.840.1.608945.3.579.2.564317-42-3678Oqzygby16662244 2.16840.1.003779.3.579.2.301641-85-2207Caonxss103884 2.840.1.847263.3.579.2.172309-43-9081Truroxg78581458 2.840.1.146220.3.579.2.976191-69-5540Aniobhj0513127 2..1.621374.3.579.2.091248-46-6264Prqmgpu9840823 2.0.1.131593.3.579.2.911265-53-1437Csmsnai1154151 2..1.186345.3.579.2.197658-15-7695Uazjtoh7635602 2..1.545018.3.579.2.927019-62-6502Wnxrmkf4432069 2..1.331476.3.579.2.960884-65-3553Fvqqglx8986654 2.0.1.992415.3.579.2.496086-99-8570Qkmzaal8785510 2.840.1.213838.3.579.2.668760-30-3333Dtqxxrv3237881 2.840.1.720111.3.579.2.259586-98-0306Wpmuaxf9933269 2.840.1.287611.3.579.2.702004-92-3580Jpmtjsa451451289 2.840.1.356428.3.579.2.62253-43-4369Sigcgtp639866804 2..840.1.888409.3.579.2.54800-29-4923Iogbzhi216280309 2..840.1.175667.3.579.2.22577-67-1763Rwnghqs161412226 2.16.840.1.632652.3.579.2.854903-94-2271Kefpqoa95356538 2.840.1.019654.3.579.2.877771-50-7956Kcajjvj19172848324257-39-0120Qvrxnei 50501691953 Social History DateTypeDetailFacilityTobaccoCurrent every day smokerPaulding County HospitalComment on above:Quit when found out she was Quit when found out she was Start: 04-12-2024 End: 17-87-3811Nht Assigned At BirthFeProtestant Deaconess HospitalTobacco smoking status NHISTobacco smoking consumption unknownMetroHealthStart: 34-48-2937Tcg Assigned At BirthNot on fileMetroHealthTobacco smoking statusNo Smoking Status EnteredPomerene Hospitaltart: 73-75-1360Bugngko smoking statusHeavy tobacco smoker (finding)[facility] BellevueStart: 93-64-6114Ljzffth smoking statusNeverSt. Elizabeth Hospital BellevueStart: 05-16-2023 End: 00-28-2401Pktyjxk smoking status NHISSmokes tobacco dailyNOMS Healthcare History of tobacco useCigarette SmokerProMediks Health SystemStart: 05-16-2023 End: 02-01-2836Ntghaye use and exposureSmokeless tobacco non-userProMedica Health SystemStart: 10-10-2023 End: 93-21-5820Urfbmigfs beverage intakeLifetime non-drinker (finding)[facility] SystemStart: 04-12-2024 End: 19-52-4750Xxxvkqy of Social functionNOMS HealthcareStart: 12-41-8385Hwz assigned at birthFeBelmont Behavioral HospitalvelandStart: 26-61-8147Eljwwx identityIdentifies as female gender (finding)[facility] Work Phone: Start: 06-22-2024 End: 32-32-8725Jdhtvrii to SARS-CoV-2 (event)Not sureLutheran HospitalHow often to you have a drink containing alcohol?NeverProPromedica Toledo Hospital System Medical Equipment Procedure CodeEquipment CodeEquipment Original TextEquipment IdentifierDates Spacer Spnl [id number] Terrence 7d 14mm Pk Corpectomy Sys Ns Lf 3.5/3.5deg For Corpectomy Terrence - [id number]: 80-59-6244Uewxr Bn 28mm 2 Lvl Xtend Spne Crv Ant Ns - [id number]: 23-80-5632Urltv Bn 16mm 4.2mm Slf Drl Va Spne Xtend Ns - [id number]: 07-08-2023 Goals DatePatient GoalDesired Activity/StatePersonal health goalComment on above: Evaluation of progress towards goal: Home with , self care Functional Status OmnzDjcxycmzebMqallzVrrsdbrw89-53-5510Rnttmpixub StatusN/AFisher-[facility] Faqskegn01-46-8336Mlhjofqyjy StatusN/AFisher - [facility] Clinical Notes 04-01-2022 to 08-21-2024 Note Date & NyafRxmvDwszzhhn96-15-7591 History of Present illness Narrative* Kev Whittington, - 08/21/2024 3:15 PM EST Images from the original note were not included. Chief Complaint Patient presents with cervical myelopathy Subjective Lavinia Jesus, 34 y.o., female here for follow up. HPI The patient is here post EMG. She states that her MRI of her brain is scheduled for 09/03 at [facility]. She completed physical therapy and she states [...] has pain that shoots from her right handup into her neck. She states that her [...] Kamara CERVICAL FUSION SECTION, CLASSIC 06/12/2014 [facility] SECTION, CLASSIC 04/15/2020 [facility] SPINAL FUSION 07/2023 No family [...] keep up with her exercises for strengthening. Sheneeds to train like she is an athlete [...] management whenever they have to offer but unfortunatelyI think much of it is the spinal cord changes. She continues to have numbness and tingling more on the right side than the left but bilateral. Shealso has right lower extremity weakness and right [...] later in the month. We are trying torule out demyelinating disease that could be complicating [...] the permanent spinal cord damage some of thismay be her new norm however I am [...] to clinic: 3 weeks documented in this [facility]11-25-2024 History of Present illness Narrative* Shanna Bo MA - 07/30/2024 9:00 AM EST Images from the original note were not included. Reason for Appointment: EMG Patient: Lavinia Lee : 1990 EMG Computer: [employer] 3 Referring Physician: Dr. Kev Whittington EMG: SELENE ux specialist: Shanna Bo [facility] Office Location: [place] Reason for EMG: c/o burning, wrists to the neck. R>L. Hx of CTS release, Hx of neck surgery. No hx of DM, not taking blood thinners. Comments: Procedure explained to the patient who expressed understanding. documented in this [facility]11-20-2024 History of Present illness Narrative* LISA Mahmood - 07/25/2024 9:00 AM EST Images from the original note were not included. Reason for Appointment: EMG Patient: Lavinia Lee : 1990 EMG Computer: [employer] 2 Referring Physician: Dr. Kev Whittington EMG: ELVIRA ux specialist: Alin Marrero RT(R) Office Location: [place] Reason for EMG: c/o numbness/tingling in toes on bilateral feet R>L, low back pain. No hx of DM.Not on blood thinners. Comments: Procedure was explained to the patient & male pc analyst who expressed understanding. Patient appeared to have tolerated the test well despite some discomfort due to the nature of the test. documented in this encounterH[facility] [id number] History of Present illness Narrative* Kev Whittington, - 07/11/2024 9:00 AM EST Images from the original note were not [...] April of 2023. She was not sure whyshe was falling. The patient states that in May of 2023 she had numbness and tingling on the right side of her body. She was evaluated at the ED. She was found to have cervical disc dz. The patient had neck surgery in July 2023. Dr. Cruz at [facility] did the surgery. The patient statesthat since the surgery she is losing her [...] Therapy for her arms and had electric stimulationand could not tolerate it. She states that [...] [place] CERVICAL FUSION SECTION, CLASSIC 06/12/2014 [facility] SECTION, CLASSIC 04/15/2020 [facility] SPINAL FUSION 07/2023 No family [...] and right upper extremity weakness. She has somenumbness and tingling in her legs. She did [...] extremity was normal. These were done in 2023. She feels like her symptoms have worsened since then. She has numbness and tingling in herfeet which really would not be explained by [...] therapy to see if they can help withher symptoms. I do agree that she needs to see pain management. She is on tizanidine 4 mg 3 times a day and we will add in some gabapentin and have her work up to 100 mg 1 in the morning 2 at bedtimeand see if that helps with some of [...] to clinic: 3 weeks documented in this encounterHermann Area District [id number] History of Present illness Narrative* Tory Van MD - 07/02/2024 11:00 AM EDT 34-year-old female with chronic neck and lower back pain. She was referred for persistent symptoms.About a year ago she underwent C6 corpectomy in [place] for spinal cord compression. Her symptoms before surgery are more or less which she is experiencing right now. She says that the symptoms in herarms did not really improve much, she still [...] walks with a normal gait. No focal neurologicdeficits in the upper or lower extremities. I personally reviewed multiple imaging studies. Preoperative MRI of her cervical spine demonstratedsevere cord compression from C5-7. Postoperative x-rays demonstrate adequate corpectomy with as well as maintained alignment of her fusion. There does not appear to be any collapse or displacement ofthe instrumentation. Thoracic and lumbar MRIs were also [...] cessation and abstinence of all nicotine containing products.I also discussed the importance of beginning an [...] Insecurity: No Food Insecurity (08/22/2023) Received from [facility] Hunger Screening Within the past [...] Not on file Tory Van MD Director, [facility] Framing Consultant Department of Orthopaedic Surgery [facility] [address] [place] [address]. [place] [address] documented in this encounterL[facility] Hospital Work Phone: [phone]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
== END 2025-07-09 10:37 | disposition home or self-care (01) ==
PROVIDERS: PCP Family Medicine; Visit Provider Family Medicine
DX: M54.59 Other low back pain (principal); M79.601 Pain in right arm; M54.2 Cervicalgia; M43.22 Fusion of spine, cervical region; M51.369 Other intervertebral disc degeneration, lumbar region without mention of lumbar back pain or lower extremity pain
CPT/HCPCS: 72040; 72110; 72170; 73090